=== PATIENT | female | born 1960 | race Caucasian/White ===

== ENCOUNTER 2023-08-02 07:41 | Outpatient (OUT) | payer MEDICARE, SELFPAY ==
--- NOTE | 2023-08-02 07:42 | VEIN_ITS ---
Patient Name: EDEN GRIDER MR#: [id number] : 1960 Exam Date: 08/02/2023 Ordering Doctor: DR SIOBHAN RING D.P.M. RADIOLOGY REPORT PROCEDURE: [facility] - OFFICE VISIT INITIAL COMPARISON: None. PROGRESS NOTES: 62-year-old female who presents with a 15 year history of lower extremity pain swelling and varicose veins. The patient describes the pain as burning moderate in severity rated a 5 on a scale of 1-10. The patient's symptoms culminated in a nonhealing ulceration on the posterior mid right calf. The patient was seen by [facility] wound clinic, Dr. Cid from where she was referred. The patient has not had an episode of cellulitis. The patient's symptoms are exacerbated by prolonged sitting and standing and are only minimally relieved by rest, leg elevation and over the counter oral analgesics. 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 The patient does a minimal amount of exercise due to her pain, hip fracture and bilateral knee replacements. The patient denies any signs and symptoms to suggest arterial ischemia. The patient describes a family history significant for varicose veins in her mother and maternal grandmother. Breast cancer in her mother. Heart disease in her father. . The patient has 5 grandchildren. The patient has a social history significant for a 40 pack year history of smoking discontinuing 3 months ago. The patient was initially to continue her smoking cessation. Occasional social alcohol use. No illicit drug or prescription drug miss use. Past medical history is significant for right hip fracture with surgery. Left shoulder arthroscopic surgery of bilateral knee arthroplasty. The patient is currently on Lasix for lower extremity edema. An inhaler and ibuprofen. Patient has previously had intravenous laser ablation of the right great saphenous vein by Dr. Zavala in [place]. No history of deep venous thrombus or pulmonary embolus. See separate history and physical for medication list. The patient has worn compression stockings for many years. Nursing notes were reviewed. After history and physical exam I discussed at length the pathophysiology of venous hypertension and possible treatments, therapies and strategies available. We discussed at length the importance of elevating the lower extremities above the level of the heart, increased physical activity and compression stocking use. I discussed with the patient that her symptoms were likely multifactorial related to age, genetics, inactivity, possibly lymphatic dysfunction, soft tissue damage from long-term smoking with a component related to venous insufficiency. While we expect some improvement in her condition we do not expect resolution. Risks benefits and alternatives were discussed. The patient's questions were answered. Ultrasound venous reflux study performed the same day was discussed at length with the patient. The report demonstrates occlusion of the very proximal right great saphenous vein from prior intravenous laser ablation. Moderate bilateral great saphenous vein venous insufficiency. Two incompetent right leg perforating veins corresponding to active ulceration of the right posterior mid calf. Bilateral incompetent varicose veins PHYSICAL EXAM: The right leg demonstrates extensive skin thickening , hemosiderin staining and subcutaneous edema below the knee. Moderate scattered varicose and reticular veins are observed. There is a 5 cm active ulceration along the right mid posterior calf, contained to the dermis and not extending into the fat layer. The left leg demonstrates extensive skin thickening, hemosiderin staining is subcutaneous edema, less than on the right. Moderate scattered varicose reticular veins. No active ulceration. Both thighs, legs and feet were symmetrically warm to the touch. Posterior tibial and dorsalis pedis pulses could not be palpated. VEIN/[facility] Facility NEW [facility] IMPRESSION: 1. Bilateral great saphenous vein venous insufficiency . To incompetent right leg perforating veins subjacent to an active venous stasis ulcer 2. Moderate bilateral lower extremity varicose veins 3. Extensive lower extremity subcutaneous edema and skin thickening 4. Indeterminate flow significant arterial disease 5. CEAP: C6, Ep, Asp, Pr PLAN: 1. Endovenous laser ablation right great saphenous vein followed by left great saphenous vein followed right perforating veins subjacent to an active venous stasis ulceration 2. Micro foam chemical ablation bilateral incompetent varicose veins 3. Long-term use of bilateral knee or thigh-high 20-30 mm compression stockings 4. Elevated legs and increased physical activity for symptomatic relief Nurse notes, history and physical were reviewed and confirmed, see attached forms. The nurse was present throughout the physical exam and consultation Dictated by: Edi Reyes MD on 08/02/2023 at 10:41 Approved by: Edi Reyes MD on 08/02/2023 at 10:49
--- NOTE | 2023-08-02 07:42 | VEIN_ITS ---
Patient Name: EDEN GRIDER MR#: [id number] : 1960 Exam Date: 08/02/2023 Ordering Doctor: DR SIOBHAN RING D.P.M. RADIOLOGY REPORT PROCEDURE: VC EXT VENOUS REFLUX SUZIE LMTD COMPARISON: None. INDICATIONS: I83.813 Bilateral painful varicose veins TECHNIQUE: Duplex imaging of the lower extremity to assess the deep and superficial venous system for the presence of deep or superficial venous incompetence and to document the location and severity of disease. The study includes evaluation of the great saphenous vein (GSV), anterior accessory saphenous vein (AASV) and small saphenous vein (SSV). Patient scanned in reverse Trendelenburg and standing. FINDINGS: RIGHT LOWER EXTREMITY: Saphenofemoral Junction Reflux: Yes mm sec GSV: Diam (mm) Reflux/ Time (sec) Proximal Thigh Mid Thigh 5.5 Yes 0.6 Distal Thigh 7.5 Yes 1.9 Prox Calf 5.5 Yes 0.5 Mid Calf 4.6 Yes 0.8 Saphenopopliteal Junction Reflux: 4.9mm Yes 1.0 SSV: Proximal Calf 4.0 Yes 0.3 Mid Calf 2.7 No AASV: Not present Thrombi: No acute or chronic thrombus visualized Compressibility: Normal Flow: Normal Shirt Presser: Dist/med calf 4.6mm with 0.7s reflux. Dist/med calf area of wound 4.5mm with 0.7s reflux. Tech Note: Incompetent GSV. Proximal portion of GSV was previously ablated. Patent varicose vein prox/med calf 4.6mm with 1.1s reflux. Patent varicose vein medial knee 3.0mm with 0.5s reflux. Patent varicose vein mid/med thigh 6.0mm with 1.0s reflux. LEFT LOWER EXTREMITY: Saphenofemoral Junction Reflux: Yes 7.1 mm 2.4 sec GSV: Diam (mm) Reflux/Time (sec) Proximal Thigh 8.2 Yes 1.8 Mid Thigh 5.1 Yes 1.0 Distal Thigh 5.0 Yes 1.0 Prox Calf 2.6 No Mid Calf 3.3 No Saphenopopliteal Junction Relux: 3.6 mm No SSV: Proximal Calf 3.3 No Mid Calf 2.6 Yes 0.8 AASV: Proximal Thigh 3.3 No Mid Thigh 3.4 Yes 0.4 Distal Thigh Thrombi: No acute or chronic thrombus visualized Compressibility: Normal Flow: Normal Shirt Presser: Mid/med calf 3.1mm with 0.8s reflux. Tech Note: Incompetent GSV. Patent varicose vein mid/med calf 3.3mm with 0.9s reflux. Patent varicose vein mid/med thigh 2.4mm with 0.8s reflux. Patent varicose vein dist/med calf 3.6mm with 1.0s reflux. CONCLUSION: 1. Moderate bilateral great saphenous vein venous insufficiency. Left leg saphenous junction reflux. Nonvisualized proximal right great saphenous vein from prior ablation 2. Two large incompetent right leg perforating veins 3. Bilateral incompetent varicose veins, right greater than left Dictated by: Edi Reyes MD on 08/02/2023 at 08:56 Approved by: Edi Reyes MD on 08/02/2023 at 08:59
== END 2023-08-02 07:42 | disposition home or self-care (01) ==
LOC: VC 07:41
PROVIDERS: PCP Podiatrist Foot & Ankle Surgery; Visit Provider Podiatrist Foot & Ankle Surgery
DX: I83.813 Varicose veins of bilateral lower extremities with pain (principal)
CPT/HCPCS: 93970; G0463

== ENCOUNTER 2023-09-21 07:49 | Outpatient (OUT) | payer MEDICARE, SELFPAY ==
--- NOTE | 2023-09-21 07:50 | VEIN_ITS ---
[address] [address] Patient Name: EDEN GRIDER MRN: [id number] date: 1960 Sex: F Assigned Patient Location: Current Patient Location: Accession/Order Number: [id number] Exam Date: 09/21/2023 07:50 Report Date: 09/21/2023 10:03 At the request of: GAUTAM GRESHAM Procedure: VC Endovenous Ablation 1VeinRT EXAMINATION: VC Endovenous Ablation 1Vein right great saphenous vein HISTORY: Pain due to varicose veins of bilateral legs I83.813 COMPARISON: No relevant comparison available. TECHNIQUE: The risks and benefits of the procedure had been previously discussed, and were rediscussed at length. Informed written consent was obtained. Ying Umana and Tata Farah assisted. Time out procedure was performed. The right lower extremity was prepared and draped in the usual sterile fashion to allow knee flexion in the sterile field. Duplex ultrasound probe was draped in a sterile cover, sterile transmission gel was used. Venous mapping was performed with the areas of dilation and large tributaries marked. The total length was 45 cm from the entry 5 cm above the medial malleolus to where the proximal great saphenous vein is occluded in the upper thigh but proximal to the large branch varicosities. The diameter of the greater saphenous vein ranged from 5-8 mm. A 30 gauge needle and 1% buffered lidocaine was used to anesthetize the entry site. A 4 mm incision was made with a scalpel and the saphenous vein was entered percutaneously under direct ultrasound guidance with a micropuncture set, a single stick was successful in gaining access. A micro-guide wire was inserted and the needle removed. A micro-set including a dilator was inserted over the microwire and the needle and dilator were removed. A 0.018 guide wire was inserted through the micro-set and threaded through the saphenous vein. The dilator was removed and an introducer sheath was inserted over the wire. The dilator and wire were removed and the 600 micron fiber was introduced and placed and positioned so that it extended beyond the sheath. Final position of the fiber was determined by ultrasound guidance and duplex imaging. Tumescent anesthetic was delivered by ultrasound guidance. 250 cc of fluid was delivered along the entire course of the saphenous vein. The solution consisted of 1000 cc of normal saline with 40 mL of 1% lidocaine and 20 mL of sodium bicarbonate. A final positioning check was made. The energy source was turned on by means of the foot pedal and the fiber and sheath were withdrawn. The total number of Joules delivered was 2184. The laser was active for 273 seconds under continuous pulse, average laser use of 8 J. Laser start time 8:22 AM 09/21/2023 . Laser stop time 8:28 AM 09/21/2023 . A duplex ultrasound revealed compressibility and flow at the saphenofemoral junction immediately after the procedure. Hemostasis at the access site was achieved. The skin incision of the saphenous vein was closed with a 4 x 4. A compression stocking was applied. Postop instructions were given. A follow up appointment was recommended and scheduled. The patient tolerated the procedure well and was discharged in good condition . VEIN/VC Endovenous Ablation 1VeinRT IMPRESSION: Technically successful endovenous laser ablation of the right great saphenous vein Electronically authenticated by: GAUTAM GRESHAM Date: 09/21/2023 10:03
--- OUTSIDE RECORDS SUMMARY | 2023-09-21 07:52 | XMS_ITS | CCD ---
Author Name Unknown Address [address] [place] [address] Organization [facility] Care Team Providers Care Charging Operator Name Role Phone Yaniv MARRUFO Primary Care Physician Lashaun Danae Unavailable Unavailable MAGGY, MIKALA A Primary Care Physician [phone] MAGGY, MIKALA A Attending Unavailable MAGGY, MIKALA A Attending Unavailable MAGGY, MIKALA A Attending Unavailable MAGGY, MIKALA A Attending Unavailable MAGGY, MIKALA A Attending Unavailable Coal, Bashar X Admitting Unavailable Coal, Bashar X Referring Unavailable Coal, Bashar X Attending Unavailable Coal, Bashar X Admitting Unavailable Coal, Bashar X Referring Unavailable Coal, Bashar X Attending Unavailable MAGGY, MIKALA A Attending Unavailable MAGGY, MIKALA A Admitting Unavailable Steve Dickinson Attending Unavailable Charan Rivera Referring Unavailable Coal, Bashar X Referring Unavailable Alfaro, Basem G. Attending Unavailable Coal, Bashar X Attending Unavailable MAGGY, MIKALA A Referring Unavailable NONE, XXXX Referring Unavailable Coal, Bashar X Attending Unavailable Charan Rivera Attending Unavailable Spasic, Gonsalo V. Attending Unavailabl e Allergies Allergy Classification Reported Allergen(s) Allergy Type Date of Onset Reaction(s) Facility (12 sources) [place]; Translations: [Strawberries] Propensity to adverse reactions to substance Blotchy [facility] (1 source) No Known Medication Allergies; Translations: [No Known Medication Allergies] Propensity to adverse reactions (disorder) [facility] Repository NEGATED: Highlighted row has been ruled out! (1 source) Drug allergy [facility] NEGATED: Highlighted row has been ruled out! (1 source) Drug allergy [facility] NEGATED: Highlighted row has been ruled out! (1 source) Drug allergy [facility] NEGATED: Highlighted row has been ruled out! (1 source) Drug allergy [facility] Medications Current Medications Medication Drug Class(es) Dates Sig (Normalized) Sig (Original) Albuterol (Eqv-ProAir HFA) 90 mcg/inh inhalation aerosol (4 sources) Start: 06-21-2023 take 2 puff(s) by inhalation every six hours Albuterol (Eqv-ProAir HFA) 90 mcg/inh inhalation aerosol 2 puff(s), Inhalation, q6hr, 18 gm, Refill(s) 1, [facility], 167, cm, 06/21/23 11:26:00 EDT, Height/Length Dosing, 136, kg, 06/21/23 11:26:00 EDT, Weight Dosing Start Date: 06/21/23 Status: Ordered azithromycin 250 mg oral tablet (1 source) Macrolide Antimicrobial Start: 07-11-2022 End: 07-21-2022 azithromycin 250 mg Tab = 1 packet(s), Oral, As Directed, as directed on package labeling, X 5 day(s), # 6 tab(s), Refills(s) 1, Pharmacy: [facility], 167, cm, 07/11/22 8:07:00 EST, Height/Length Dosing, 126.3, kg, 07/11/22 8:07:00 EST, Weight Dosing Start Date: 07/11/22 Stop Date: 07/21/22 Status: Ordered azithromycin 250 mg Tab 5-day Dose Pack (Z-Austyn) (4 sources) Start: 06-21-2023 azithromycin 250 mg Tab 5-day Dose Pack (Z-Austyn) See Instructions, 1 tab(s) Oral, # 6 tab(s), Refills(s) 0, Pharmacy: [facility], 167, cm, 06/21/23 11:26:00 EDT, Height/Length Dosing, 136, kg, 06/21/23 11:26:00 EDT, Weight Dosing Start Date: 06/21/23 Status: Ordered Start: 05-04-2023 End: 05-09-2023 azithromycin 250 mg Tab 5-da y Dose Pack (Z-Austyn) = 1 packet(s), Oral, As Directed, as directed on package labeling, X 5 day(s), # 6 tab(s), Refills(s) 0, Pharmacy: [facility], 167, cm, 05/04/23 12:04:00 EDT, Height/Length Dosing, 133.5, kg, 05/04/23 12:04:00 EDT, Weight Dosing Start Date: 05/04/23 Stop Date: 05/09/23 Status: Ordered Breztri Aerosphere inhalatio n aerosol (4 sources) Start: 07-16-2023 Breztri Aerosp here inhalation aerosol Refill(s) 0 Start Date: 07/16/23 Status: Ordered Start: 06-27-2023 End: 06-21-2024 take 1 dose by inhalation twice daily Breztri Aerosphere inhalation aerosol 2 puff(s), Inhalation, BID for 30 day(s), 1 EA, Refill(s) 11, [facility], 167, cm, 06/27/23 9:44:00 EDT, Height/Length Dosing, 135, kg, 06/27/23 9:44:00 EDT, Weight Dosing Start Date: 06/27/23 Stop Date: 06/21/24 Status: Ordered cephalexin 500 mg oral capsule (1 source) Cephalosporin Antibacterial Start: 07-16-2023 End: 07-23-2023 take 1 capsule by mouth every eight hours Keflex 500 mg Cap 500 mg = 1 cap(s), Oral, q8hr, X 7 day(s), # 21 cap(s), Refills(s) 0, Pharmacy: [facility], 168, cm, 07/16/23 12:38:00 EST, Height/Length Dosing, 133.7, kg, 07/16/23 12:38:00 EST, Weight Dosing Start Date: 07/16/23 Stop Date: 07/23/23 Status: Ordered doxycycline hyclate 100 mg oral capsule (1 source) Tetracycline-class Drug Start: 08-16-2023 take 1 capsule by mouth twice daily doxycycline hyclate 100 mg Cap 100 mg = 1 cap(s), Oral, BID, # 20 cap(s), Refills(s) 0, Pharmacy: [facility], 168, cm, 08/16/23 8:09:00 EST, Height/Length Dosing, 130.5, kg, 08/16/23 8:09:00 EST, Weight Dosing Start Date: 08/16/23 Status: Ordered furosemide 40 mg oral tablet (3 sources) Loop Diuretic Start: 06-27-2023 End: 2024 take 1 tablet by mouth every other day Lasix 40 mg Tab 40 mg = 1 tab(s), Oral, Every other day, X 90 day(s), # 45 tab(s), Refills(s) 4, Pharmacy: [facility], 167, cm, 06/27/23 9:44:00 EDT, Height/Length Dosing, 135, kg, 06/27/23 9:44:00 EDT, Weight Dosing Start Date: 06/27/23 Stop Date: 09/19/24 Status: Ordered Roflumilast (4 sources) Phosphodiesterase 4 Inhibitor Start: 07-16-2023 Roflumilast 250 mcg oral tablet Refills(s) 0 Start Date: 07/16/23 Status: Ordered Start: 06-27-2023 End: 05-28-2024 take 1 tablet by mouth once daily Daliresp 250 mcg oral tablet 250 mcg = 1 tab(s), Oral, Daily, X 28 day(s), # 28 tab(s), Refills(s) 11, Pharmacy: [facility], 167, cm, 06/27/23 9:44:00 EDT, Height/Length Dosing, 135, kg, 06/27/23 9:44:00 EDT, Weight Dosing Start Date: 06/27/23 Stop Date: 05/28/24 Status: Ordered Symbicort 160/4.5 inhalation aerosol with adapter (8 sources) Start: 03-30-2023 take 2 puff(s) by inhalation twice daily Symbicort 160/4.5 inhalation aerosol with adapter 2 puff(s), Inhalation, BID, 3 EA, Refill(s) 4, [facility], 167, cm, 07/11/22 8:07:00 EST, Height/Length Dosing, 126.3, kg, 07/11/22 8:07:00 EST, Weight Dosing Start Date: 03/30/23 Status: Ordered Start: 07-11-2021 take 2 puff(s) by in halation twice daily Symbicort 160/4.5 inhalation aerosol with adapter 2 puff(s), Inhalation, BID, 3 EA, Refill(s) 3, [facility], 167, cm, 07/11/21 8:22:00 EST, Height/Length Dosing, 127.1, kg, 07/11/21 8:22:00 EST, Weight Dosing Start Date: 07/11/21 Status: Ordered Completed/Discontinued Medications Medication Drug Class(es) Dates Sig (Normalized) Sig (Original) albuterol 0.83 mg/ml inhalation solution (11 sources) beta2-Adrenergic Agonist Start: 06-21-2023 take 50 doses by inhalation every four hours as needed albuterol 0.083% Inh Sandi 3 mL 0.083% - 3mL dosing units, Inhalation, q4hr as needed for wheezing, 50 EA, Refill(s) 1, [facility], 167, cm, 06/21/23 11:26:00 EDT, Height/Length Dosing, 136, kg, 06/21/23 11:26:00 EDT, Weight Dosing Start Date: 06/21/23 Status: Ordered Start: 07-11-2021 take 50 doses by inh alation every four hours as needed albuterol 0.083% Inh Sandi 3 mL 0.083% - 3mL dosing units, Inhalation, q4hr as needed for wheezing, 50 EA, Refill(s) 1, [facility], 167, cm, 07/11/21 8:22:00 EST, Height/Length Dosing, 127.1, kg, 07/11/21 8:22:00 EST, Weight Dosing Start Date: 07/11/21 Status: Ordered predniSONE 10 mg oral tablet (4 sources) Start: 06-27-2023 predniSONE 10 mg Tab 10 mg = 1 tab(s), Oral, As Directed, Take 4 tabs for 3 days, 3 tabs for 3 days, 2 tabs for 3 days, 1 tab for 3 days., # 30 tab(s), Refills(s) 0, Pharmacy: [facility], 167, cm, 06/27/23 9:44:00 EDT, Height/Length Dosing, 135, kg, 06/27/23 9:44:00 EDT, Weight Dosing Start Date: 06/27/23 Status: Ordered Start: 05-04-2023 End: 05-09-2023 take 1 tablet by mouth once daily predniSONE 50 mg Tab 50 mg = 1 tab(s), Oral, Daily, X 5 day(s), # 5 tab(s), Refills(s) 0, Pharmacy: [facility], 167, cm, 05/04/23 12:04:00 EDT, Height/Length Dosing, 133.5, kg, 05/04/23 12:04:00 EDT, Weight Dosing Start Date: 05/04/23 Stop Date: 05/09/23 Status: Ordered Start: 07-11-2022 predniSONE 10 mg Tab 0 = 1 -, Oral, As Directed, Take 5 tabs by mouth daily x3 days, 4 daily x3 days, 3 daily x3 days, 2 daily x3 days, then 1 tab daily x3 days., # 45 tab(s), Refills(s) 2, Pharmacy: [facility], 167, cm, 07/11/22 8:07:00 EST, Height/Length... Start Date: 07/11/22 Status: Ordered Problems Problem Classification Problem Date Documented Date Episodic/Chronic Acute bronchitis (11 sources) Acute bronchitis; Translations: [Acute bronchitis, unspecified] Onset: 05-04-2023 Episodic Asthma (12 sources) Intrinsic asthma; Translations: [Asthma] Onset: 05-04-2023 06-20-2019 Chronic Chronic obstructive pulmonary disease and bronchiectasis (20 sources) Chronic bronchitis; Translations: [Unspecified chronic bronchitis] Onset: 07-11-2022 Chronic Diabetes mellitus without complication (12 sources) Impaired fasting glycemia; Translations: [Impaired fasting glucose] Onset: 07-11-2022 Episodic Disorders of lipid metabolism (12 sources) Mixed hyperlipidemia; Translations: [Mixed hyperlipidemia] Onset: 07-11-2022 Chronic Immunizations and screening for infectious disease (1 source) Vaccination given; Translations: [Encounter for immunization] Onset: 05-09-2023 Episodic Osteoarthritis (11 sources) Osteoarthritis of hip 06-26-2019 Chronic Other non-traumatic joint disorders (11 sources) Shoulder pain 06-20-2019 Episodic Other nutritional; endocrine; and metabolic disorders (17 sources) Body mass index 40+ - severely obese; Translations: [Body mass index (BMI) 40.0-44.9, adult] Onset: 07-11-2022 Chronic Other nutritional; endocrine; and metabolic disorders (6 sources) Morbid obesity; Translations: [Morbid (severe) obesity due to excess calories] Onset: 06-21-2023 Chronic Residual codes; unclassified (1 source) Obstructive sleep apnea syndrome; Translations: [Obstructive sleep apnea (adult) (pediatric)] Onset: 05-18-2023 Chronic Residual codes; unclassified (11 sources) Menopause present 05-07-2017 Episodic Residual codes; unclassified (1 source) Edema; Translations: [Edema, unspecified] Onset: 06-27-2023 Episodic Residual codes; unclassified (1 source) Patient encounter status; Translations: [Other specified health status] Onset: 08-16-2023 Episodic Skin and subcutaneous tissue infections (1 source) Cellulitis of lower limb; Translations: [Cellulitis of right lower limb] Onset: 07-16-2023 Episodic Superficial injury; contusion (1 source) Foreign body of skin of finger; Translations: [Superficial foreign body of unspecified finger, initial encounter] Onset: 08-16-2023 Episodic Results Test Name Value Interpretation Reference Range [facility] Medicine Office/Clini c Noteon 08-16-2023 Family Medicine Office/Clinic Note Chief Complaint copd HPI Staff Pt here for 3 month f/u COPD: Do you have any changes in sputum quantity or color? no Do you have SOB or JARRELL? no Do you have an increased cough? no Are you compliant with your medications yes Difficulty affording your medications? no Do you use O2? no PFT: 06/06/23 Next Pulmonology visit: 09/10/23 Cellulitis: LV 07/16/23, prescribed Keflex x7days. Completed: yes Improvement: no, pt did go to wound clinic then vein specialist has improved now Concerns: pt would like to discuss splinters in Lt hand, noted 3 weeks ago. Per pt hurts so bad she has to take Tylenol every 4 hours. Pap: DUE Trevor: DUE [place]: DUE Flu: UTD I have reviewed and verified the staff HPI to be accurate for this encounter. History of Present Illness Patient presents today in f/u for known COPD. She reports she is feeling better and continues to take her medications as ordered. Her pulse ox is 92% today in the office. She denies shortness of breath. She has a concern today of dog splinters under her finger nails. She reports her daughter is a missile tracking technician and told her she should this checked as she has some pain in her 3rd and 4th finger tips. She reports she has not been able to see anything under the nails. Review of Systems PHQ Score Initial Depression Screen Score: 0 SCORE Constitutional: no fever, no chills, no sweats, no weakness Respiratory: no shortness of breath, no cough, no orthopnea, no wheezing Cardiovascular: no chest pain, no palpitations, no edema Additional ROS info: Except as noted in the above Review of Systems and in the History of Present Illness all other systems have been reviewed and are negative or noncontributory. Physical Exam Vitals & Measurements HR: 97(Peripheral) BP: 138/84 SpO2: 92% HT: 66 in HT: 168 cm WT: 130.5 kg WT: 287.1 lb BMI: 46.24 General: alert, no acute distress Skin: warm, dry Head: no trauma, normocephalic Neck: Trachea midline, no adenopathy, no tenderness Eye: normal conjunctiva, sclera clear Cardiovascular: regular rate and rhythm, normal peripheral perfusion Respiratory: Lungs CTA, respirations non labored Back: No tenderness, Normal ROM, Normal alignment. Extremities: no deformity, no trauma; tenderness to the 3rd & 4th digit fingertips. Neurological: oriented x 4, LOC appropriate for age speech normal Psychiatric: cooperative, affect appropriate for age, normal judgement, normal psychiatric thoughts. Assessment/Plan 1. COPD type B (J44.9: Chronic obstructive pulmonary disease, unspecified) Stable Controlled with medication(s) Continue albuterol, Breztri, & Daliresp as ordered Pulse ox 92% today in the office Encouraged to complete appointment with pulmonology on 09/10/2023 f/u in 3 months 2. Splinter of finger (S60.459A: Superficial foreign body of unspecified finger, initial encounter) Encouraged to soak in Epsom salts TID prn Ordered: doxycycline, 100 mg = 1 cap(s), Oral, BID, # 20 cap(s), Refills(s) 0, Pharmacy: [facility], 168, cm, 08/16/23 8:09:00 EST, Height/Length Dosing, 130.5, kg, 08/16/23 8:09:00 EST, Weight Dosing 3. BMI 45.0-49.9, adult (Z68.42: Body mass index [BMI] 45.0-49.9, adult) Monitor weight at each visit Encourage daily exercise as tolerated Encouraged portion control with meals 4. Non-smoker (Z78.9: Other specified health status) Stable Follow-up No qualifying data available Patient Education Chronic Obstructive Pulmonary Disease, [id number] Problem List/Past Medical History Ongoing BMI 45.0-49.9, adult Chronic bronchitis COPD type B Impaired fasting glucose Intrinsic asthma Mixed hyperlipidemia Morbid obesity Historical Chronic bronchitis Procedure/Surgical History Hip arthrogram (05/19/2019), Arthroplasty of shoulder (05/21/2017), left total knee arthroplasty (07/21/2014), right total knee arthroplasty (09/23/2013), Arthroplasty of the hip, Bilateral tubal ligation, section, Excision of cyst, Hemorrhoidectomy, Ligation and stripping of varicose vein of lower limb, Meniscus tear.. Medications Albuterol (Eqv-ProAir HFA) 90 mcg/inh inhalation aerosol, 2 puff(s), Inhalation, q6hr, 1 refills albuterol 0.083% Inh Sandi 3 mL, 0.083% - 3mL dosing units, Inhalation, q4hr, PRN, 1 refills Breztri Aerosphere inhalation aerosol, 2 puff(s), Inhalation, BID, 11 refills Daliresp 250 mcg oral tablet, 250 mcg= 1 tab(s), Oral, Daily, 11 refills doxycycline hyclate 100 mg Cap, 100 mg= 1 cap(s), Oral, BID Lasix 40 mg Tab, 40 mg= 1 tab(s), Oral, Every other day, 4 refills Allergies No Known Medication Allergies Strawberries (Blotchy) Social History Alcohol - Denies Alcohol Use, 09/03/2013 Substance Abuse - Denies Substance Abuse, 09/03/2013 Tobacco - High Risk, 09/03/2013 Former smoker, quit more than 30 days ago Tobacco Use:. Never Smokeless Tobacco Use:. Cigarettes, Ready to change: No. Household tobacco concerns: No., 08/16/2023 Fa (more content not included)... Normal [facility] Comment on above: Result Comment: Shiva tronically Signed By: MIKALA WINTER CNP\.melinda\Date and Time Signed: 08/16/23 12:40 EST Patient Educationon 08-16-20 Patient Education Pulmonary Medicine Chronic Obstructive Pulmonary Disease Chronic obstructive pulmonary disease (COPD) is a long-term (chronic) lung problem. When you have COPD, it is hard for air to get in and out of your lungs. Usually the condition gets worse over time, and your lungs will never return to normal. There are things you can do to keep yourself as healthy as possible. What are the causes? ? Smoking. This is the most common cause. ? Certain genes passed from parent to child (inherited). What increases the risk? ? Being exposed to secondhand smoke from cigarettes, pipes, or cigars. ? Being exposed to chemicals and other irritants, such as fumes and dust in the work environment. ? Having chronic lung conditions or infections. What are the signs or symptoms? ? Shortness of breath, especially during physical activity. ? A long-term cough with a large amount of thick mucus. Sometimes, the cough may not have any mucus (dry cough). ? Wheezing. ? Breathing quickly. ? Skin that looks lópez or blue, especially in the fingers, toes, or lips. ? Feeling tired (fatigue). ? Weight loss. ? Chest tightness. ? Having infections often. ? Episodes when breathing symptoms become much worse (exacerbations). At the later stages of this disease, you may have swelling in the ankles, feet, or legs. How is this treated? ? Taking medicines. ? Quitting smoking, if you smoke. ? Rehabilitation. This includes steps to make your body work better. It may involve a team of specialists. ? Doing exercises. ? Making changes to your diet. ? Using oxygen. ? Lung surgery. ? Lung transplant. ? Comfort measures (palliative care). Follow these instructions at home: Medicines ? Take puzz-srt-xuzbzdz and prescription medicines only as told by your doctor. ? Talk to your doctor before taking any cough or allergy medicines. You may need to avoid medicines that cause your lungs to be dry. Lifestyle ? If you smoke, stop smoking. Smoking makes the problem worse. ? Do not smoke or use any products that contain nicotine or tobacco. If you need help quitting, ask your doctor. ? Avoid being around things that make your breathing worse. This may include smoke, chemicals, and fumes. ? Stay active, but remember to rest as well. ? Learn and use tips on how to manage stress and control your breathing. ? Make sure you get enough sleep. Most adults need at least 7 hours of sleep every night. ? Eat healthy foods. Eat smaller meals more often. Rest before meals. Controlled breathing Learn and use tips on how to control your breathing as told by your doctor. Try: ? Breathing in (inhaling) through your nose for 1 second. Then, pucker your lips and breath out (exhale) through your lips for 2 seconds. ? Putting one hand on your belly (abdomen). Breathe in slowly through your nose for 1 second. Your hand on your belly should move out. Pucker your lips and breathe out slowly through your lips. Your hand on your belly should move in as you breathe out. Controlled coughing Learn and use controlled coughing to clear mucus from your lungs. Follow these steps: 1. Lean your head a little forward. 2. Breathe in deeply. 3. Try to hold your breath for 3 seconds. 4. Keep your mouth slightly open while coughing 2 times. 5. Spit any mucus out into a tissue. 6. Rest and do the steps again 1 or 2 times as needed. General instructions ? Make sure you get all the shots (vaccines) that your doctor recommends. Ask your doctor about a flu shot and a pneumonia shot. ? Use oxygen therapy and pulmonary rehabilitation if told by your doctor. If you need home oxygen therapy, ask your doctor if you should buy a tool to measure your oxygen level (oximeter). ? Make a COPD action plan with your doctor. This helps you to know what to do if you feel worse than usual. ? Manage any other conditions you have as told by your doctor. ? Avoid going outside when it is very hot, cold, or humid. ? Avoid people who have a sickness you can catch (contagious). ? Keep all follow-up visits. Contact a doctor if: ? You cough up more mucus than usual. ? There is a change in the color or thickness of the mucus. ? It is harder to breathe than usual. ? Your breathing is faster than usual. ? You have trouble sleeping. ? You need to use your medicines more often than usual. ? You have trouble doing your normal activities such as getting dressed or walking around the house. Get help right away if: ? You have shortness of breath while resting. ? You have shortness of breath that stops you from: ? Being able to talk. ? Doing normal activities. ? Your chest hurts for longer than 5 minutes. ? Your skin color is more blue than usual. ? Your pulse oximeter shows that you have low oxygen for longer than 5 minutes. ? You have a fever. ? You feel too tired to breathe normally. These symptoms may repres (more content not included)... [facility] Consent for Procedure/Surger yon 07-24-2023 Consent for Procedure/Surgery [id number] 0#1.00TIFF [facility] Consent for Treatmenton 06-28 Consent for Treatment [id number] #1.00TIFF [facility] Consent to Photographon 06-28 Consent to Photograph [id number] 5#1.00TIFF [facility] Correspondence - [place] Correspondence - Wound [id number] 9#1.00TIFF [facility] Correspondence - Wound [id number] 6#1.00TIFF [facility] Multi-Wound Charton 07-24-20 Multi-Wound Chart [id number] 4#1.00TIFF [facility] Nursing Assessment - [place] 07-24-2023 Nursing Assessment - Wound [id number] 0#1.00TIFF [facility] Nursing Assessment - Wound [id number] 2#1.00TIFF [facility] Nursing Note - [place] 07-24 Nursing Note - Wound [id number] 5#1.00TIFF [facility] Physician Orderon 07-24-2023 Physician Order [id number] 8#1.00TIFF [facility] Progress Note - [place]ound[place] 06-28 Progress Note - Wound [id number] 4#1.00TIFF [facility] Physician Referralon 023 Physician Referral [id number] #1.00TIFF [facility] Family Medicine Office/Clini c Noteon 07-16-2023 Family Medicine Office/Clinic Note Chief Complaint EST rash on back of leg HPI Staff 62 year old female presents with burning rash on back of right leg states it [place] and seeps History of Present Illness I have reviewed and verified the staff HPI to be accurate for this encounter. Portions of this record have been created with voice recognition software. Occasional wrong-word or ?bxknh-c-kstm? substitutions may have occurred due to the inherent limitations of voice recognition software. 62 yo female presents today with cc of retention in the back of the right leg. Patient states she noticed rash of the right posterior leg started about 4 to 5 days ago. She denies any burning itching or blistering type rash prior to rash development. She denies any fever or chills but states redness of the right lower extremity with spread to the top of the right foot. She states some pain and discomfort or tenderness of the area around the rash. She states that it is seeping. She was recently started on Lasix to help with some water in the lower extremities. This was also prescribed to her by institutional cook who she is seeing for history of COPD. States a former smoker which she quit on of this year. States she has not had a cigarette since then. Patient denies any calf tenderness denies any history of DVT or PE does not currently take any aspirin or blood thinners. Denies any recent travel or recent sick contacts. Denies any acute history of cellulitis but states the lower extremities are very dry which they do have some cracks. She states she has tried most everything yoal-kao-[id number] which does not seem to help moisturize her skin. She denies any weakness numbness or tingling of the extremity she denies any history of diabetes. Was recently treated with steroid she states for a bronchitis. States she is feeling better in regards to that. She has no other concerns at this time. Review of Systems PHQ Score Initial Depression Screen Score: 0 SCORE ROS negative unless otherwise stated in HPI. Physical Exam Vitals & Measurements T: 36.6 ?C(Oral) HR: 86(Peripheral) BP: 136/86 SpO2: 95% HT: 66 in HT: 168 cm WT: 133.7 kg WT: 294.14 lb BMI: 47.37 General: Pleasant obese female, no acute distress Eyes: not assessed Ears: not assessed Nose: not addressed Mouth: not assessed Neck: not assessed Lungs: Lung sounds are clear bilaterally. No wheezing rhonchi or crackles on exam. Cardio: S1, S2, regular rhythm. No murmurs gallops or rubs. Abdomen: not assessed Extremity: Patient walked back to convenient care on her own without gait abnormality. Patient has strong posterior tibialis pulses bilaterally and strong pedal pulses bilaterally. Patient has 1+ pitting edema to the right lower extremity including the foot. Patient has an area of what appears to be a wound at the right posterior lower extremity just above the left ankle. Some of that extends to the back of the right heel. This is not weeping moist red and hot to the touch concerning for cellulitis. There is no lacerations or open wounds. No obvious abrasions. No redness of the right lower extremity extends just past the area of open or moist skin to the dorsal aspect of the right foot does not include the plantar surface or toes on the right foot. There is no red streaking. Swelling is all below the right knee. Patient denies any calf tenderness negative Homans' sign bilaterally. Area of open or seeping skin is approximately 6 cm in length by 4 cm in width at the right posterior lower leg. Active weeping of serous fluid. No focal deficits. Patient is neurovascularly intact. Neurologic: not assessed Skin: See extremity note regarding description of cellulitis to the right lower extremity. Mental Status: Alert and oriented x3. Normal mood and affect Assessment/Plan Discussed with patient that I have concern for cellulitis. Discussed with patient that without trying fracture skin is provided opportunity for bacteria to get in. We will send referral to wound care. The patient is prescribed Keflex 3 times daily x7 days duration which patient agrees and understands plan rest ice and elevate the right leg which will help with swelling and inflammation. Patient is to follow closely with primary care provider in the next 2 to 3 days for reevaluation. Can return if needed. However she understands to seek ER for reevaluation if she does not increase in redness streaking chills worsening pain or spike fever or develop chills weakness or for any other worsening or concerning symptoms which patient agrees and understands plan. 1. Cellulitis of right lower leg (L03.115: Cellulitis of right lower limb) History and exam consistent with cellulitis. Will treat with keflex 500 mg tid x 7 da7s. Cleanse area with mild soap and water twice daily. Keep area clean and dry. F/u with PCP in 5-7 days to ensure improvement of symptoms, sooner if no improvement of symptoms. Seek medical attention immediately for fevers, increased redness and swelling, difficulty ambulati (more content not included)... [facility] Comment on above: Result Comment: Elec tronically Signed By: Miguel TAVARES, Charan Carvajal\.br\Date and Time Signed: 07/16/23 15:41 EST Patient Educationon 07-16-20 23 Patient Education Infectious Disease Cellulitis, Adult Cellulitis is a skin infection. The infected area is often warm, red, swollen, and sore. It occurs most often in the arms and lower legs. It is very important to get treated for this condition. What are the causes? This condition is caused by bacteria. The bacteria enter through a break in the skin, such as a cut, burn, insect bite, open sore, or crack. What increases the risk? This condition is more likely to occur in people who: ? Have a weak body defense system (immune system). ? Have open cuts, townsend, bites, or scrapes on the skin. ? Are older than 60 years of age. ? Have a blood sugar problem (diabetes). ? Have a long-lasting (chronic) liver disease (cirrhosis) or kidney disease. ? Are very overweight (obese). ? Have a skin problem, such as: ? Itchy rash (eczema). ? Slow movement of blood in the veins (venous stasis). ? Fluid buildup below the skin (edema). ? Have been treated with high-energy rays (radiation). ? Use IV drugs. What are the signs or symptoms? Symptoms of this condition include: ? Skin that is: ? Red. ? Streaking. ? Spotting. ? Swollen. ? Sore or painful when you touch it. ? Warm. ? A fever. ? Chills. ? Blisters. How is this diagnosed? This condition is diagnosed based on: ? Medical history. ? Physical exam. ? Blood tests. ? Imaging tests. How is this treated? Treatment for this condition may include: ? Medicines to treat infections or allergies. ? Home care, such as: ? Rest. ? Placing cold or warm cloths (compresses) on the skin. ? Hospital care, if the condition is very bad. Follow these instructions at home: Medicines ? Take yeni-yrk-hzczezm and prescription medicines only as told by your doctor. ? If you were prescribed an antibiotic medicine, take it as told by your doctor. Do not stop taking it even if you start to feel better. General instructions ? Drink enough fluid to keep your pee (urine) pale yellow. ? Do not touch or rub the infected area. ? Raise (elevate) the infected area above the level of your heart while you are sitting or lying down. ? Place cold or warm cloths on the area as told by your doctor. ? Keep all follow-up visits as told by your doctor. This is important. Contact a doctor if: ? You have a fever. ? You do not start to get better after 1?2 days of treatment. ? Your bone or joint under the infected area starts to hurt after the skin has healed. ? Your infection comes back. This can happen in the same area or another area. ? You have a swollen bump in the area. ? You have new symptoms. ? You feel ill and have muscle aches and pains. Get help right away if: ? Your symptoms get worse. ? You feel very sleepy. ? You throw up (vomit) or have watery poop (diarrhea) for a long time. ? You see red streaks coming from the area. ? Your red area gets larger. ? Your red area turns dark in color. These symptoms may represent a serious problem that is an emergency. Do not wait to see if the symptoms will go away. Get medical help right away. Call your local emergency services (911 in the [place] Do not drive yourself to the hospital. Summary ? Cellulitis is a skin infection. The area is often warm, red, swollen, and sore. ? This condition is treated with medicines, rest, and cold and warm cloths. ? Take all medicines only as told by your doctor. ? Tell your doctor if symptoms do not start to get better after 1?2 days of treatment. This information is not intended to replace advice given to you by your health care provider. Make sure you discuss any questions you have with your health care provider. Document Revised: 05/25/2022 Document Reviewed: 05/25/2022 [employer] Patient Education ? 2022 [employer]. Nutrition BMI for Adults What is BMI? Body mass index (BMI) is a number that is calculated from a person's weight and height. BMI can help estimate how much of a person's weight is composed of fat. BMI does not measure body fat directly. Rather, it is an alternative to procedures that directly measure body fat, which can be difficult and expensive. BMI can help identify people who may be at higher risk for certain medical problems. What are BMI measurements used for? BMI is used as a screening tool to identify possible weight problems. It helps determine whether a person is obese, overweight, a healthy weight, or underweight. BMI is useful for: ? Identifying a weight problem that may be related to a medical condition or may increase the risk for medical problems. ? Promoting changes, such as changes in diet and exercise, to help reach a healthy weight. BMI screening can be repeated to see if these changes are working. How is BMI calculated? BMI involves measuring your weight in relation to your height. Both height and weight are measured, and the BMI is calculated from those numbers. This can (more content not included)... [facility] Physician Orderon 07-16-2023 Physician Order [id number] 5#1.00TIFF [facility] Consent for Treatmenton Consent for Treatment [id number] #1.00TIFF [facility] Heart and Vascular Office/Cl inic Noteon 06-27-2023 Heart and Vascular Office/Clinic Note Chief Complaint TESTING RESULTS. History of Present Illness Since her last visit she underwent pulmonary function test showed severe obstructive lung disease FEV1 41% with mild component of restrictive lung disease total lung capacity 77%. She has been on Symbicort and albuterol she has again increased chest congestion cough and shortness of breath. She was prescribed antibiotic last week by her primary care physician. She went for sleep study but she was told that she has co-pay of 1300 and could not afford She has increased lower extremity edema Review of Systems PHQ Score Initial Depression Screen Score: 0 12 point system review was done and negative except what mentioned in HPI Physical Exam Vitals & Measurements HR: 104(Peripheral) BP: 150/88 SpO2: 92% HT: 66 in HT: 167 cm WT: 135 kg WT: 297 lb BMI: 48.41 General: no distress Skin: warm? , dry? Head: no? trauma, normocephalic? Neck: Trachea midline? , no? adenopathy, no? tenderness Eye: normal? conjunctiva, sclera clear? ENMT: oral mucosa moist? Cardiovascular: regular? rate and rhythm, normal? Respiratory: Lungs rhonchi? ,respirations non labored? Chest wall: no? deformity. Gastrointestinal: soft? , non distended? , no? tenderness, no? guarding. Extremities: no? deformity, no? trauma Neurological: nonfocal Assessment/Plan 1. COPD mixed type (J44.9: Chronic obstructive pulmonary disease, unspecified) She has severe COPD with component of restrictive lung disease from body habitus. She has frequent exacerbation so we will step up her regimen and stop Symbicort and start Trelegy inhaler. I will also start her on Daliresp 250 mg daily for severe COPD with frequent exacerbation She did not qualify for supplemental oxygen with exertion, she needs nocturnal oximetry testing to evaluate for O2 need at night She was given a prescription for prednisone taper for COPD exacerbation Ordered: budesonide/formotero l/glycopyrrolate, 2 puff(s), Inhalation, BID for 30 day(s), 1 EA, Refill(s) 11, [facility], 167, cm, 06/27/23 9:44:00 EDT, Height/Length Dosing, 135, kg, 06/27/23 9:44:00 EDT, Weight Dosing roflumilast, 250 mcg = 1 tab(s), Oral, Daily, X 28 day(s), # 28 tab(s), Refills(s) 11, Pharmacy: [facility], 167, cm, 06/27/23 9:44:00 EDT, Height/Length Dosing, 135, kg, 06/27/23 9:44:00 EDT, Weight Dosing 2. Morbid obesity (E66.01: Morbid (severe) obesity due to excess calories) 3. Edema (R60.9: Edema, unspecified) I will start her on diuretics every other day Ordered: furosemide, 40 mg = 1 tab(s), Oral, Every other day, X 90 day(s), # 45 tab(s), Refills(s) 4, Pharmacy: [facility], 167, cm, 06/27/23 9:44:00 EDT, Height/Length Dosing, 135, kg, 06/27/23 9:44:00 EDT, Weight Dosing Orders: predniSONE, 10 mg = 1 tab(s), Oral, As Directed, Take 4 tabs for 3 days, 3 tabs for 3 days, 2 tabs for 3 days, 1 tab for 3 days., # 30 tab(s), Refills(s) 0, Pharmacy: [facility], 167, cm, 06/27/23 9:44:00 EDT, Height/Length Dosing, 135, kg, ... Follow-up No qualifying data available 6 weeks Problem List/Past Medical History Ongoing Acute bronchitis BMI 45.0-49.9, adult Chronic bronchitis COPD type B Impaired fasting glucose Intrinsic asthma Mixed hyperlipidemia Morbid obesity Historical Chronic bronchitis Procedure/Surgical History Hip arthrogram (05/19/2019), Arthroplasty of shoulder (05/21/2017), left total knee arthroplasty (07/21/2014), right total knee arthroplasty (09/23/2013), Arthroplasty of the hip, Bilateral tubal ligation, section, Excision of cyst, Hemorrhoidectomy, Ligation and stripping of varicose vein of lower limb, Meniscus tear.. Medications Albuterol (Eqv-ProAir HFA) 90 mcg/inh inhalation aerosol, 2 puff(s), Inhalation, q6hr, 1 refills albuterol 0.083% Inh Sandi 3 mL, 0.083% - 3mL dosing units, Inhalation, q4hr, PRN, 1 refills azithromycin 250 mg Tab 5-day Dose Pack (Z-Austyn), See Instructions Breztri Aerosphere inhalation aerosol, 2 puff(s), Inhalation, BID, 11 refills Daliresp 250 mcg oral tablet, 250 mcg= 1 tab(s), Oral, Daily, 11 refills Lasix 40 mg Tab, 40 mg= 1 tab(s), Oral, Every other day, 4 refills predniSONE 10 mg Tab, 10 mg= 1 tab(s), Oral, As Directed Allergies No Known Medication Allergies Strawberries (Blotchy) Social History Alcohol - Denies Alcohol Use, 09/03/2013 Substance Abuse - Denies Substance Abuse, 09/03/2013 Tobacco - High Risk, 09/03/2013 Former smoker, quit more than 30 days ago Tobacco Use:. Never Smokeless Tobacco Use:. Cigarettes, Ready to change: No. Household tobacco concerns: No., 06/21/2023 Family History Primary malignant neoplasm of female breast: Mother, Sister and Aunt. Immunizations Vaccine Date Status Comments influenza virus vaccine, inactivated 05/09/2023 Given influenza virus vaccine, inactivated - Not Given Patient Refuses influenza virus vaccine, inactivated - Not Given Patient Refuses SARS- (more content not included)... [facility] Comment on above: Result Comment: Elec tronically Signed By: Frank GAUTHIER, Rosalba Arthur\.br\Date and Time Signed: 06/27/23 11:46 EDT Physician Orderon 06-27-2023 Physician Order [id number] #1.00TIFF [facility] Family Medicine Office/Clini c Noteon 06-22-2023 Family Medicine Office/Clinic Note HPI Staff Pt presents for COPD acting up HT 167 flu UTD *would like a proair or equivlant sent to [facility] Cough, no runny nose. Started A month ago, not got completely better. Yellow phlegm- almost neon green/yellow. Denies fever/new or worsening body aches/chills. History of Present Illness 62 year old female patient presents today with exacerbation of COPD. She was seen by pulmonology in April and completed PFT's on 06/06/2023. She has a f/u appointment with pulmonology next week. Her pulse ox is 93% today in [facility] office. She reports she completed a breathing treatment about 4 hours prior to coming to the office. She is requesting Albuterol HFA to have for when she is not at home to use the nebulizer machine. Review of Systems PHQ Score Initial Depression Screen Score: 0 Constitutional: no fever, no chills, no sweats, no weakness Respiratory: moderate shortness of breath, no cough, no orthopnea, no wheezing Cardiovascular: no chest pain, no palpitations, no edema Additional ROS info: Except as noted in the above Review of Systems and in the History of Present Illness all other systems have been reviewed and are negative or noncontributory. Physical Exam Vitals & Measurements T: 36.3 ?C(Temporal Artery) HR: 96(Peripheral) RR: 24 BP: 144/92 SpO2: 93% HT: 66 in HT: 167 cm WT: 136 kg WT: 299.2 lb BMI: 48.76 General: alert, no acute distress ENMT: TM's clear, oral mucosa moist, no pharyngeal erythema or exudate Cardiovascular: regular rate and rhythm, normal peripheral perfusion Respiratory: Lungs expiratory wheezes, respirations non labored Extremities: no deformity, no trauma Neurological: oriented x 4, LOC appropriate for age, CN II-XII intact, motor strength equal & normal bilaterally, sensation equal & normal bilaterally, speech normal Assessment/Plan 1. COPD type B (J44.9: Chronic obstructive pulmonary disease, unspecified) Reviewed PFT test completed by the institutional cook Encouraged to f/u with pulmonology f/u in 3 months Ordered: albuterol, 2 puff(s), Inhalation, q6hr, 18 gm, Refill(s) 1, [facility] 167, cm, 06/21/23 11:26:00 EDT, Height/Length Dosing, 136, kg, 06/21/23 11:26:00 EDT, Weight Dosing azithromycin, See Instructions, 1 tab(s) Oral, # 6 tab(s), Refills(s) 0, Pharmacy: [facility], 167, cm, 06/21/23 11:26:00 EDT, Height/Length Dosing, 136, kg, 06/21/23 11:26:00 EDT, Weight Dosing 2. BMI 45.0-49.9, adult (Z68.42: Body mass index [BMI] 45.0-49.9, adult) 3. Morbid obesity (E66.01: Morbid (severe) obesity due to excess calories) Orders: albuterol, 0.083% - 3mL dosing units, Inhalation, q4hr as needed for wheezing, 50 EA, Refill(s) 1, [facility], 167, cm, 06/21/23 11:26:00 EDT, Height/Length Dosing, 136, kg, 06/21/23 11:26:00 EDT, Weight Dosing Total time spent preparing the chart, conducting of the encounter with the patient and family and time spent documenting, reviewing, and ordering tests was 30 minutes. Follow-up No qualifying data available Patient Education Chronic Obstructive Pulmonary Disease Exacerbation, Vxdm-dl-Uuky Problem List/Past Medical History Ongoing Acute bronchitis BMI 45.0-49.9, adult Chronic bronchitis COPD type B Impaired fasting glucose Intrinsic asthma Mixed hyperlipidemia Morbid obesity Historical Chronic bronchitis Procedure/Surgical History Hip arthrogram (05/19/2019), Arthroplasty of shoulder (05/21/2017), left total knee arthroplasty (07/21/2014), right total knee arthroplasty (09/23/2013), Arthroplasty of the hip, Bilateral tubal ligation, section, Excision of cyst, Hemorrhoidectomy, Ligation and stripping of varicose vein of lower limb, Meniscus tear.. Medications Albuterol (Eqv-ProAir HFA) 90 mcg/inh inhalation aerosol, 2 puff(s), Inhalation, q6hr, 1 refills albuterol 0.083% Inh Sandi 3 mL, 0.083% - 3mL dosing units, Inhalation, q4hr, PRN, 1 refills azithromycin 250 mg Tab 5-day Dose Pack (Z-Austyn), See Instructions Symbicort 160/4.5 inhalation aerosol with adapter, 2 puff(s), Inhalation, BID, 4 refills Allergies No Known Medication Allergies Strawberries (Blotchy) Social History Alcohol - Denies Alcohol Use, 09/03/2013 Substance Abuse - Denies Substance Abuse, 09/03/2013 Tobacco - High Risk, 09/03/2013 Former smoker, quit more than 30 days ago Tobacco Use:. Never Smokeless Tobacco Use:. Cigarettes, Ready to change: No. Household tobacco concerns: No., 06/21/2023 Family History Primary malignant neoplasm of female breast: Mother, Sister and Aunt. Immunizations Vaccine Date Status Comments influenza virus vaccine, inactivated 05/09/2023 Given influenza virus vaccine, inactivated - Not Given Patient Refuses influenza virus vaccine, inactivated - Not Given Patient Refuses SARS-CoV-2 (COVID-19) mRNA BNT-162b2 vax 07/11/2021 Given SARS-CoV-2 (COVID-19) mRNA BNT-162b2 vax 12/10/2020 Given Prophylaxis SARS-CoV-2 (COVID-19) mRNA BNT-162b2 vax 11/13/19 (more content not included)... [facility] Comment on above: Result Comment: Elec tronically Signed By: MIKALA WINTER CNP\.br\Date and Time Signed: 06/21/23 22:43 EDT Patient Educationon 06-22-20 Patient Education Pulmonary Medicine Chronic Obstructive Pulmonary Disease Exacerbation Chronic obstructive pulmonary disease (COPD) is a long-term (chronic) lung problem. In COPD, the flow of air from the lungs is limited. COPD exacerbations are times that breathing gets worse and you need more than your normal treatment. Without treatment, they can be life-threatening. If they happen often, your lungs can become more damaged. What are the causes? ? Having infections that affect your airways and lungs. ? Being exposed to: ? Smoke. ? Air pollution. ? Chemical fumes. ? Dust. ? Things that can cause an allergic reaction (allergens). ? Not taking your usual COPD medicines as told. ? Having medical problems already, such as heart failure or infections not involving the lungs. In many cases, the cause is not known. What increases the risk? ? Smoking. ? Being an older adult. ? Having frequent prior COPD exacerbations. What are the signs or symptoms? ? Increased coughing. ? Increased mucus from your lungs. ? Increased wheezing. ? Increased shortness of breath. ? Fast breathing and finding it hard to breathe. ? Chest tightness. ? Less energy than usual. ? Sleep disruption from symptoms. ? Confusion. ? Increased sleepiness. Often, these symptoms happen or get worse even with the use of medicines. How is this treated? Treatment for this condition depends on how bad it is and the cause of the symptoms. You may need to stay in the hospital for treatment. Treatment may include: ? Taking medicines. ? Using oxygen. ? Being treated with different ways to clear your airway, such as using a mask to deliver oxygen. Follow these instructions at home: Medicines ? Take jwlh-osz-rczkamw and prescription medicines only as told by your doctor. ? Use all inhaled medicines the correct way. ? If you were prescribed an antibiotic or steroid medicine, take it as told by your doctor. Do not stop taking it even if you start to feel better. Lifestyle ? Do not smoke or use any products that contain nicotine or tobacco. If you need help quitting, ask your doctor. ? Eat healthy foods. ? Exercise regularly. ? Get enough sleep. Most adults need 7 or more hours per night. ? Avoid tobacco smoke and other things that can bother your lungs. ? Several times a day, wash your hands with soap and water for at least 20 seconds. If you cannot use soap and water, use hand cae engineer. This may help keep you from getting an infection. ? During flu season, avoid areas that are crowded with people. General instructions ? Drink enough fluid to keep your pee (urine) pale yellow. Do not do this if your doctor has told you not to. ? Use a cool mist machine (vaporizer). ? If you use oxygen or a machine that turns medicine into a mist (nebulizer), continue to use it as told. ? Keep all follow-up visits. How is this prevented? ? Keep up with shots (vaccinations) as told by your doctor. Be sure to get a yearly flu (influenza) shot. ? If you smoke, quit smoking. Smoking makes the problem worse. ? Follow all instructions for rehabilitation. These are steps you can take to make your body work better. ? Work with your doctor to develop and follow an action plan. This tells you what steps to take when you experience certain symptoms. Contact a doctor if: ? Your COPD symptoms get worse than normal. Get help right away if: ? You are short of breath and it gets worse, even when you are resting. ? You have trouble talking. ? You have chest pain. ? You cough up blood. ? You have a fever. ? You keep vomiting. ? You feel weak or you pass out (faint). ? You feel confused. ? You are not able to sleep because of your symptoms. ? You have trouble doing daily activities. These symptoms may be an emergency. Get help right away. Call your local emergency services (911 in the [place] ? Do not wait to see if the symptoms will go away. ? Do not drive yourself to the hospital. Summary ? COPD exacerbations are times that breathing gets worse and you need more treatment than normal. ? COPD exacerbations can be very serious and may cause your lungs to become more damaged. ? Do not smoke. If you need help quitting, ask your doctor. ? Stay up to date on your shots. Get a flu shot every year. This information is not intended to replace advice given to you by your health care provider. Make sure you discuss any questions you have with your health care provider. Document Revised: 07/06/2021 Document Reviewed: 06/21/2021 [employer] Patient Education ? 2022 [employer] [facility] Pulmonary Function Studieson 06-06-2023 Pulmonary Function Studies PULMONARY FUNCTION TEST: 06/04/2023 REQUESTING PHYSICIAN: Rosalba Marie M.D. REASON FOR TESTING: Chronic obstructive pulmonary disease. Spirometry results are acceptable and reproducible. The FVC was 1.65 liters or 50% of predicted. The FEV1 was 1.07 liters or 42% of predicted with a ratio of 65%. There was borderline improvement in the FEV1 with the administration of bronchodilators. Lung volumes showed a total lung capacity of 77% of predicted, residual volume of 118% of predicted with a ratio of 58%. Diffusion capacity of carbon monoxide was 92% of predicted and when adjusted to alveolar volume at 133% of predicted. Oxygen desaturation study was performed while the patient was ambulating on room air. The patient had the lowest oxygen saturation of 92% and did not require oxygen supplementation. IMPRESSION: Pulmonary function test results are suggestive of a combined obstructive and restrictive lung disease pattern with evidence of air trapping. The diffusion capacity is within normal range. Desaturation study showed no evidence of oxygen desaturation while the patient was ambulating on room air. When compared to patient's prior pulmonary function test performed on November 16, 2020, there has been a significant decrease in the total lung capacity and the FEV1 since then. READ BY: Tia Alfaro M.D. Dictated: 06/06/2023 [id number] Transcribed: 06/06/2023 cc:Rosalba Marie M.D. [facility] Comment on above: Result Comment: Elec tronically Signed By: Dominic GAUTHIER, Tia GIsrael\.br\Date and Time Signed: 06/06/23 09:58 EDT Consent for Treatmenton Consent for Treatment [id number] #1.00TIFF [facility] Pulmonary Function Testson Pulmonary Function Tests [id number] 4#1.00TIFF [facility] Consent for Treatmenton Consent for Treatment [id number] #1.00CD:127 [facility] Consent for Treatment [id number] #1.00CD:127 [facility] Physician Orderon 05-29-2023 Physician Order [id number] #1.00CD:127 [facility] Insurance Correspondenceon Insurance Correspondence [id number] 2#1.00CD:127 [facility] Consent for Treatmenton 04-28 Consent for Treatment [id number] #1.00CD:127 [facility] Heart and Vascular Office/Cl inic Noteon 05-18-2023 Heart and Vascular Office/Clinic Note Chief Complaint establish care COPD History of Present Illness This is 62-year-old female with past medical history significant for COPD, nicotine dependence. She was on Symbicort she ran out of her medication few weeks ago then she had flareup of COPD with bronchitis she was in urgent care treated with antibiotic and steroid and she is doing better. Chest x-ray with mild hyperinflation and cardiomegaly. She does have chronic lower extremity edema She does have snoring, interrupted sleep, daytime sleepiness Review of Systems PHQ Score Initial Depression Screen Score: 0 12 point system review was done and negative except what mentioned in HPI Physical Exam Vitals & Measurements HR: 78(Peripheral) BP: 154/88 SpO2: 98% HT: 66 in HT: 167 cm WT: 136 kg WT: 299.2 lb BMI: 48.76 General: no distress Skin: warm? , dry? Head: no? trauma, normocephalic? Neck: Trachea midline? , no? adenopathy, no? tenderness Eye: normal? conjunctiva, sclera clear? ENMT: oral mucosa moist? Cardiovascular: regular? rate and rhythm, normal? Respiratory: Lungs CTA? ,respirations non labored? Chest wall: no? deformity. Gastrointestinal: soft? , non distended? , no? tenderness, no? guarding. Extremities: no? deformity, no? trauma, positive edema Neurological: nonfocal Assessment/Plan 1. COPD type B (J44.9: Chronic obstructive pulmonary disease, unspecified) I will obtain pulmonary function test and 6-minute walk test, I will refer her for pulmonary rehab program. I agree with Symbicort and albuterol as needed Ordered: Pulmonary Function Testing Pulmonary Function Testing Pulmonary Rehab - Ambulatory Referral Sleep Study Baseline 2. WINNIE (obstructive sleep apnea) (G47.33: Obstructive sleep apnea (adult) (pediatric)) She has multiple risk factors and symptoms of sleep apnea I will refer her for sleep study Ordered: Pulmonary Function Testing Pulmonary Function Testing Sleep Study Baseline Follow-up No qualifying data available 4-6 weeks after testing Problem List/Past Medical History Ongoing Acute bronchitis BMI 40.0-44.9, adult Chronic bronchitis COPD type B Impaired fasting glucose Intrinsic asthma Mixed hyperlipidemia Historical Chronic bronchitis Procedure/Surgical History Hip arthrogram (05/19/2019), Arthroplasty of shoulder (05/21/2017), left total knee arthroplasty (07/21/2014), right total knee arthroplasty (09/23/2013), Arthroplasty of the hip, Bilateral tubal ligation, section, Excision of cyst, Hemorrhoidectomy, Ligation and stripping of varicose vein of lower limb, Meniscus tear.. Medications albuterol 0.083% Inh Sandi 3 mL, 0.083% - 3mL dosing units, Inhalation, q4hr, PRN, 1 refills Symbicort 160/4.5 inhalation aerosol with adapter, 2 puff(s), Inhalation, BID, 4 refills Allergies Strawberries (Blotchy) Social History Alcohol - Denies Alcohol Use, 09/03/2013 Substance Abuse - Denies Substance Abuse, 09/03/2013 Tobacco - High Risk, 09/03/2013 Former smoker, quit more than 30 days ago Tobacco Use:. Never Smokeless Tobacco Use:. Cigarettes, Ready to change: No. Household tobacco concerns: No., 05/18/2023 Family History Primary malignant neoplasm of female breast: Mother, Sister and Aunt. Immunizations Vaccine Date Status Comments influenza virus vaccine, inactivated 05/09/2023 Given influenza virus vaccine, inactivated - Not Given Patient Refuses influenza virus vaccine, inactivated - Not Given Patient Refuses SARS-CoV-2 (COVID-19) mRNA BNT-162b2 vax 07/11/2021 Given SARS-CoV-2 (COVID-19) mRNA BNT-162b2 vax 12/10/2020 Given Prophylaxis SARS-CoV-2 (COVID-19) mRNA BNT-162b2 vax 11/12/2020 Given Prophylaxis [facility] Comment on above: Result Comment: Elec tronically Signed By: Frank GAUTHIER, Rosalba Arthur\.br\Date and Time Signed: 05/18/23 14:43 EDT Physician Orderon 05-18-2023 Physician Order [id number] 1#1.00CD:127 [facility] Physician Order [id number] #1.00CD:127 [facility] Ambulatory Visit Summaryon 0 05-16-2023 Ambulatory Visit Summary LIZETT GRIDER :1960 Visit Date:05/16/2023 Ambulatory Visit Instructions Your Diagnosis Chronic bronchitis Acute bronchitis Your Care Team Attending Physician - MIKALA WINTER CNP Primary Care Physician - MIKALA WINTER CNP This Is Your Medications List Contact prescribing physician if questions or concerns albuterol (albuterol 0.083% Inh Sandi 3 mL) budesonide-formotero l (Symbicort 160/4.5 inhalation aerosol with adapter) Procedures Performed Hip arthrogram (05/19/2019), Arthroplasty of shoulder (05/21/2017), left total knee arthroplasty (07/21/2014), right total knee arthroplasty (09/23/2013), Arthroplasty of the hip, Bilateral tubal ligation, section, Excision of cyst, Hemorrhoidectomy, Ligation and stripping of varicose vein of lower limb, Meniscus tear.. Discharge Vitals Heart Rate (Peripheral) 79 Blood Pressure 142/80 Height 167 cm Height 66 in Weight 137 kg Weight 301.4 lb BMI 49.12 What to do next Scheduled Follow-Up Appointments Sunday 10:15 AM EDT With: Frank GAUTHIER, Rosalba Arthur Where: [facility] Sunday 8:00 AM EST With: Yaniv MARRUFO DO Where: [facility] Herminio Normal [facility] Family Medicine Office/Clini c Noteon 05-16-2023 Family Medicine Office/Clinic Note Chief Complaint f/u COPD HPI Staff Patient presents to office for 1 week f/u of COPD and bronchitis. Patient is here for follow up on COPD. Have you had any ER visits or any hospitalizations? no Do you have any changes in sputum quantity or color? no Do you have SOB or JARRELL? no Do you have an increased cough? no Are you compliant with your medications? yes Are you having difficulty affording your medications? no Do you use O2? no Is the new nebulizer helping? New nebulizer is not working, but patient has been using 's machine and is doing much better. Have you heard from pulmonology or referrals to set up appointment? yes, appointment with tomorrow Dr. Connolly. History of Present Illness Patient presents today for re-evaluation of acute bronchitis. Patient states she has been doing the albuterol aerosol treatments as prescribed and using the symbicort BID now. She states she feels much better. Her pulse ox is 95% today in the office. She does not need any refills of medication. She has no additional concerns today at this visit. Review of Systems Constitutional: no fever, no chills, no sweats, no weakness Respiratory: mild shortness of breath, no cough, no orthopnea, no wheezing Cardiovascular: no chest pain, no palpitations, no edema Additional ROS info: Except as noted in the above Review of Systems and in the History of Present Illness all other systems have been reviewed and are negative or noncontributory. Physical Exam Vitals & Measurements HR: 79(Peripheral) BP: 138/80 SpO2: 95% HT: 66 in HT: 167 cm WT: 137 kg WT: 301.4 lb BMI: 49.12 General: alert, no acute distress ENMT: TM's clear, oral mucosa moist, no pharyngeal erythema or exudate Cardiovascular: regular rate and rhythm, normal peripheral perfusion Extremities: no deformity, no trauma Neurological: oriented x 4, LOC appropriate for age, CN II-XII intact, motor strength equal & normal bilaterally, sensation equal & normal bilaterally, speech normal Respiratory: Work Of Breathing: Tachypnea Not Present Intercostal Retractions Not Present Suprasternal Retractions Not Present Use of Accessory Muscles Not Present Hypopnea Not Present Ataxic, Irregular Pattern Not Present Auscultation: Clear Breath Sounds Not Present Coarse Breath Sounds Not Present Decreased Breath Sounds RLL & LL Rales/Crackles Not Present Inspiratory Wheezes Not Present Expiratory Wheezes Not Present Assessment/Plan 1. Chronic bronchitis (J42: Unspecified chronic bronchitis) Continue current medications Pulse ox 95% Continue with smoking cessation f/u in 3 months 2. Acute bronchitis (J20.9: Acute bronchitis, unspecified) Improved Continue current medications f/u in 3 months Follow-up With When Contact Information MAGGY HARE, MIKALA Mendoza, MAXIMO Within 3 months [address] [place] [address]- [facility] (1) Additional Instructions: COPD Patient Education Chronic Bronchitis, Adult Problem List/Past Medical History Ongoing Acute bronchitis BMI 40.0-44.9, adult Chronic bronchitis COPD type B Impaired fasting glucose Intrinsic asthma Mixed hyperlipidemia Historical Chronic bronchitis Procedure/Surgical History Hip arthrogram (05/19/2019), Arthroplasty of shoulder (05/21/2017), left total knee arthroplasty (07/21/2014), right total knee arthroplasty (09/23/2013), Arthroplasty of the hip, Bilateral tubal ligation, section, Excision of cyst, Hemorrhoidectomy, Ligation and stripping of varicose vein of lower limb, Meniscus tear.. Medications albuterol 0.083% Inh Sandi 3 mL, 0.083% - 3mL dosing units, Inhalation, q4hr, PRN, 1 refills Symbicort 160/4.5 inhalation aerosol with adapter, 2 puff(s), Inhalation, BID, 4 refills Allergies Strawberries (Blotchy) Social History Alcohol - Denies Alcohol Use, 09/03/2013 Substance Abuse - Denies Substance Abuse, 09/03/2013 Tobacco - High Risk, 09/03/2013 Former smoker, quit more than 30 days ago Tobacco Use:. Never Smokeless Tobacco Use:. Cigarettes, Ready to change: No. Household tobacco concerns: No., 05/16/2023 Family History Primary malignant neoplasm of female breast: Mother, Sister and Aunt. Immunizations Vaccine Date Status Comments influenza virus vaccine, inactivated 05/09/2023 Given influenza virus vaccine, inactivated - Not Given Patient Refuses influenza virus vaccine, inactivated - Not Given Patient Refuses SARS-CoV-2 (COVID-19) mRNA BNT-162b2 vax 07/11/2021 Given SARS-CoV-2 (COVID-19) mRNA BNT-162b2 vax 12/10/2020 Given Prophylaxis SARS-CoV-2 (COVID-19) mRNA BNT-162b2 vax 11/12/2020 Given Prophylaxis Normal [facility] Comment on above: Result Comment: Elec tronically Signed By: MIKALA WINTER CNP\.melinda\Date and Time Signed: 05/16/23 09:00 EDT Patient Educationon 05-16-20 Patient Education Pulmonary Medicine Chronic Bronchitis, Adult Chronic bronchitis is inflammation inside of the main airways (bronchi) that come off the windpipe (trachea) in the lungs. The swelling causes the airways to narrow and make more mucus than normal. This can make it hard to breathe and may cause coughing or noisy breathing (wheezing). This condition is a type of chronic obstructive pulmonary disease (COPD). Chronic bronchitis is often associated with other chronic respiratory conditions, such as emphysema, asthma, bronchiectasis, or cystic fibrosis. Chronic bronchitis is a long-term (chronic) condition. It is defined as a chronic cough with mucus (sputum) production: ? For at least 3 months of the year. ? For 2 years in a row. People with chronic bronchitis are more likely to get colds and other infections in the nose, throat, or airways. What are the causes? This condition is most often caused by: ? A history of smoking. ? Exposure to secondhand smoke or a smoky area for a long period of time. ? Frequent lung infections. ? Long-term exposure to certain fumes or chemicals that irritate the lungs. What are the signs or symptoms? Symptoms of chronic bronchitis may include: ? A cough that brings up mucus (productive cough). ? A whistling sound when you breathe (wheezing). ? Shortness of breath. ? Chest tightness or soreness. ? Fever or chills. ? Colds or respiratory infections that go away and return. How is this diagnosed? Your health care provider may diagnose this condition based on your signs and symptoms, especially if you have a cough that lasts a long time or keeps coming back. This condition may be diagnosed based on: ? Your symptoms and medical history. ? A physical exam, including listening to your lungs. ? Tests, such as: ? Testing a sputum sample. ? Blood tests. ? A chest X-ray. ? Tests of lung (pulmonary) function. How is this treated? There is no cure for chronic bronchitis. Treatment may help control your symptoms. This includes: ? Drinking fluids. This may help thin your mucus so it is easier to cough up. ? Mucus-clearing techniques. Your health care provider will show you which techniques are best for you. ? Medicines such as: ? Inhaled medicine (inhaler) to improve air flow in and out of your lungs. ? Antibiotics to treat or prevent bacterial lung infections. ? Mucus-thinning medicines. ? Pulmonary rehabilitation. This is a program that helps you learn how to manage your breathing problem. The program may include exercise, education, counseling, treatment, and support. ? Using oxygen therapy, if your blood oxygen level is very low. Follow these instructions at home: Medicines ? Take viml-nrj-yoyrcbz and prescription medicines only as told by your health care provider. ? If you were prescribed an antibiotic medicine, take it as told by your health care provider. Do not stop taking the antibiotic even if you start to feel better. Lifestyle ? Do not use any products that contain nicotine or tobacco. These products include cigarettes, chewing tobacco, and vaping devices, such as e-cigarettes. If you need help quitting, ask your health care provider. ? Stay away from other people's smoke (secondhand smoke) and any irritants that make you cough more, such as chemical fumes. ? Eat a healthy diet and get regular exercise. Talk with your health care provider about what activities are safe for you. ? Return to normal activities as told by your health care provider. Ask your health care provider what activities are safe for you. Preventing infections ? Stay up to date on all immunizations, including the pneumonia and flu vaccines. ? Wash your hands often with soap and water for at least 20 seconds. If soap and water are not available, use hand cae engineer. ? Avoid contact with people who have symptoms of a cold or the flu. ? Keep your environment free from any known allergens such as dust, mold, pets, and pollen. General instructions ? Get plenty of rest. ? Drink enough fluids to keep your urine pale yellow. ? Use oxygen therapy at home as directed. ? Follow instructions from your health care provider about how to use oxygen safely and take steps to prevent fire. ? Do not smoke while using oxygen or allow others to smoke in your home. ? Keep all follow-up visits. This is important. Contact a health care provider if: ? Your shortness of breath or coughing gets worse even when you take medicine. ? Your mucus gets thicker or changes color. ? You are not able to cough up your mucus. ? You have a fever. Get help right away if: ? You cough up blood. ? You have trouble breathing. ? You have chest pain. ? You feel dizzy or confused. These symptoms may represent a serious problem that is an emergency. Do not wait to see if the symptoms will go away. Get medical help right away. Call your local emergency s (more content not included)... Normal [facility] Clipboard Summaryon 05-10-20 Clipboard Summary {[id number]}CD:[id number] Normal [facility] Consent for Treatmenton 04-27 Consent for Treatment [id number] #1.00CD:127 Normal [facility] XR Chest 2 Viewson 3 XR Chest 2 Views Exam Date/Time: 05/10/2023 14:02 EDT Reason for Exam: J44.9, Z68.41;COPD Report IMPRESSION: NO EVIDENCE OF ACTIVE CHEST DISEASE. CLINICAL HISTORY: COPD, J44.9, Z68.41. Shortness of breath and cough. COMPARISON: 10/27/2020. COMMENT: The heart is within upper limits of normal in size. There is calcification at the aortic arch. The mediastinum is unremarkable. The central pulmonary vasculature appears within normal limits. No infiltration nor pleural effusion is evident. Partially included within the dfuzo-jk-jvpb is a metallic humeral head prosthesis at the left shoulder. No significant change is noted when compared to the prior exam. Ordering Provider: MIKALA WINTER FINAL REPORT Dictated: 05/10/2023 2:17 pm Oumar Robertson M.D. Signed (Electronic Signature): 05/10/2023 2:17 pm Signed by: Oumar Robertson M.D. Transcribed by: TINO Technologist: JAIMIE Technical Comments Radiation Dose: Ka,r in mGy = na DAP = na [facility] Ambulatory Visit Summaryon 0 05-09-2023 Ambulatory Visit Summary LIZETT GRIDER :1960 Visit Date:05/09/2023 Ambulatory Visit Instructions Your Diagnosis Chronic obstructive pulmonary disease, unspecified BMI 40.0-44.9, adult Immunization due Negative depression screening Your Care Team Attending Physician - MIKALA WINTER CNP Primary Care Physician - MIKALA WINTER CNP This Is Your Medications List albuterol (albuterol 0.083% Inh Sandi 3 mL) azithromycin (azithromycin 250 mg Tab 5-day Dose Pack (Z-Austyn)) budesonide-formotero l (Symbicort 160/4.5 inhalation aerosol with adapter) predniSONE (predniSONE 50 mg Tab) Procedures Performed Hip arthrogram (05/19/2019), Arthroplasty of shoulder (05/21/2017), left total knee arthroplasty (07/21/2014), right total knee arthroplasty (09/23/2013), Arthroplasty of the hip, Bilateral tubal ligation, section, Excision of cyst, Hemorrhoidectomy, Ligation and stripping of varicose vein of lower limb, Meniscus tear.. Discharge Vitals Heart Rate (Peripheral) 96 Blood Pressure 138/80 Height 167 cm Height 66 in Weight 137.9 kg Weight 303.38 lb BMI 49.45 What to do next Scheduled Follow-Up Appointments Sunday 8:20 AM EDT With: MIKALA WINTER CNP Where: [facility] [address] [place] [address]-\.br\ Medications\.br\ What How Much When Instructions\.br\ Unchanged albuterol (albuterol 0.083% Inh Sandi 3 mL) 0.083% - 3mL dosing units Inhalation Every 4 hours as needed for as needed for wheezing\.br\ Unchanged azithromycin (azithromycin 250 mg Tab 5-day Dose Pack (Z-Austyn)) 1 Packets By Mouth As Directed Duration: 5 Days as directed on package labeling \.br\ Unchanged budesonide-formot yuliya (Symbicort 160/ 4.5 inhalation aerosol with adapter) 2 Puffs Inhalation 2 times a day\.br\ Unchanged predniSONE (predniSONE 50 mg Tab) 1 Tablets By Mouth Every day Duration: 5 Days\.br\ Medications and Immunizations Administered\.br\ Given\.br\ albuterol 0.083% Inh Sandi 3 mL, 3 mL, NEB. For:\.br\ influenza virus vaccine, inactivated preservative-free quadrivalent intramuscular suspension, 0.5 mL, IntraMuscular. For: Immunization due\.br\ influenza virus vaccine, inactivated, IntraMuscular\.br \ Allergies\.br\ Strawberries (Blotchy)\.br\ Problems\.br\ Ongoing - Any problem that you are currently receiving treatment for.\.br\ Acute bronchitis\.br\ BMI 40.0-44.9, adult\.br\ Chronic bronchitis\.br\ COPD type B\.br\ Impaired fasting glucose\.br\ Intrinsic asthma\.br\ Mixed hyperlipidemia\.b r\ Historical - Any problem that you are no longer receiving treatment for.\.br\ Chronic bronchitis\.br\ Education Materials\.br\ Chronic Obstructive Pulmonary Disease Exacerbation\.br\ \.br\ Chronic obstructive pulmonary disease (COPD) is a long-term (chronic) lung problem. In COPD, the flow of air from the lungs is limited.\.br\ COPD exacerbations are times that breathing gets worse and you need more than your normal treatment. Without treatment, they can be life-threatening. If they happen often, your lungs can become more damaged.\.br\ What are the causes?\.br\ ? \.br\ Having infections that affect your airways and lungs.\.br\ ? \.br\ Being exposed to:\.br\ ? \.br\ Smoke.\.br\ ? \.br\ Air pollution.\.br\ ? \.br\ Chemical fumes.\.br\ ? \.br\ Dust.\.br\ ? \.br\ Things that can cause an allergic reaction (allergens).\.br\ ? \.br\ Not taking your usual COPD medicines as told.\.br\ ? \.br\ Having medical problems already, such as heart failure or infections not involving the lungs.\.br\ In many cases, the cause is not known.\.br\ What increases the risk?\.br\ ? \.br\ Smoking.\.br\ ? \.br\ Being an older adult.\.br\ ? \.br\ Having frequent prior COPD exacerbations.\.b r\ What are the signs or symptoms?\.br\ ? \.br\ Increased coughing.\.br\ ? \.br\ Increased mucus from your lungs.\.br\ ? \.br\ Increased wheezing.\.br\ ? \.br\ Increased shortness of breath.\.br\ ? \.br\ Fast breathing and finding it hard to breathe.\.br\ ? \.br\ Chest tightness.\.br\ ? \.br\ Less energy than usual.\.br\ ? \.br\ Sleep disruption from symptoms.\.br\ ? \.br\ Confusion.\.br\ ? \.br\ Increased sleepiness.\.br\ Often, these symptoms happen or get worse even with the use of medicines.\.br\ How is this treated?\.br\ Treatment for this condition depends on how bad it is and the cause of the symptoms. You may need to stay in the hospital for treatment. Treatment may include:\.br\ ? \.br\ Taking medicines.\.br\ ? \.br\ Using oxygen.\.br\ ? \.br\ Being treated with different ways to clear your airway, such as using a mask to deliver oxygen.\.br\ Follow these instructions at home:\.br\ Medicines\.br\ ? \.br\ Take goto-dai-hyhttoo and prescription medicines only as told by your doctor.\.br\ ? \.br\ Use all inhaled medicines the correct way.\.br\ ? \.br\ If you were prescribed an antibiotic or steroid medicine, take it as told by your doctor. Do not stop taking it even if you start to feel better.\.br\ Lifestyle\.br\ ? \.br\ Do not smoke or use any products that contain nicotine or tobacco. If you need help quitting, ask your doctor.\.br\ ? \.br\ Eat healthy foods.\.br\ ? \.br\ Exercise regularly.\.br\ ? \.br\ Get enough sleep. Most adults need 7 or more hours per night.\.br\ ? \.br\ Avoid tobacco smoke and other things that can bother your lungs.\.br\ ? \.br\ Several times a day, wash your hands with soap and water for at least 20 seconds. If you cannot use soap and water, use hand cae engineer. This may help keep you from getting an infection.\.br\ ? \.br\ During flu season, avoid areas that are crowded with people.\.br\ General instructions\.br\ ? \.br\ Drink enough fluid to keep your pee (urine) pale yellow. Do not do this if your doctor has told you not to.\.br\ ? \.br\ Use a cool mist machine (vaporizer).\.br\ ? \.br\ If you use oxygen or a machine that turns medicine into a mist (nebulizer), continue to use it as told.\.br\ ? \.br\ Keep all follow-up visits.\.br\ How is this prevented?\.br\ ? \.br\ Keep up with shots (vaccinations) as told by your doctor. Be sure to get a yearly flu (influenza) shot.\.br\ ? \.br\ If you smoke, quit smoking. Smoking makes the problem worse.\.br\ ? \.br\ Follow all instructions for rehabilitation. These are steps you can take to make your body work better.\.br\ ? \.br\ Work with your doctor to develop and follow an action plan. This tells you what steps to take when you experience certain symptoms.\.br\ Contact a doctor if:\.br\ ? \.br\ Your COPD symptoms get worse than normal.\.br\ Get help right away if:\.br\ ? \.br\ You are short of breath and it gets worse, even when you are resting.\.br\ ? \.br\ You have trouble talking.\.br\ ? \.br\ You have chest pain.\.br\ ? \.br\ You cough up blood.\.br\ ? \.br\ You have a fever.\.br\ ? \.br\ You keep vomiting.\.br\ ? \.br\ You feel weak or you pass out (faint).\.br\ ? \.br\ You feel confused.\.br\ ? \.br\ You are not able to sleep because of your symptoms.\.br\ ? \.br\ You have trouble doing daily activities.\.br\ These symptoms may be an emergency. Get help right away. Call your local emergency services (911 in the [place]\.br\ ? \.br\ Do not wait to see if the symptoms will go away.\.br\ ? \.br\ Do not drive yourself to the hospital.\.br\ Summary\.br\ ? \.br\ COPD exacerbations are times that breathing gets worse and you need more treatment than normal.\.br\ ? \.br\ COPD exacerbations can be very serious and may cause your lungs to become more damaged.\.br\ ? \.br\ Do not smoke. If you need help quitting, ask your doctor.\.br\ ? \.br\ Stay up to date on your shots. Get a flu shot every year.\.br\ This information is not intended to replace advice given to you by your health care provider. Make sure you discuss any questions you have with your health care provider.\.br\ Document Revised: 07/06/2021 Document Reviewed: 06/21/2021 Elsevier Patient Education ? 2022 [employer].br\ \.br\ [facility] Clipboard Summaryon 05-09-20 Clipboard Summary {[id number]}CD:[id number] Normal [facility] Consent for Flu Vaccineon Consent for Flu Vaccine [id number]# 1.00CD:127 Normal [facility] Family Medicine Office/Clini c Noteon 05-09-2023 Family Medicine Office/Clinic Note Chief Complaint acute exacerbation of chronic bronchitis HPI Staff Former [facility] patient. Patient is here for follow up on COPD. Have you had any ER visits or any hospitalizations? no Do you have any changes in sputum quantity or color? yes was yellow, but is now back to white-started a COPD emergency pack and sees some improvement. Do you have SOB or JARRELL? yes Do you have an increased cough? yes Are you compliant with your medications? yes is on Symbicort - does not have own nebulizer or medication. Uses husbands Are you having difficulty affording your medications? no Do you use O2? no History of Present Illness 62 year old female patient presents today in f/u to CC visit for exacerbation of chronic bronchitis. She received a rx for azithromycin & prednisone which should be finished yesterday. She has been using her 's nebulizer machine but her own albuterol. She states her last treatment was last PM. Her pulse ox today in the office is 91% on RA. She states she recently stopped smoking two weeks ago. She does have Symbicort as a maintenance medication. She has not been seen by pulmonology and is not opposed to being referred out for chronic COPD. Patient will receive a neb treatment of albuterol today in the office. Review of Systems PHQ Score Initial Depression Screen Score: 0 Constitutional: no fever, no chills, no sweats, no weakness Skin: no Jaundice, no rash, no lesions, nopetechiae ENMT: no ear pain, no sore throat, no congestion, no hoarseness Respiratory: moderate shortness of breath, no cough, no orthopnea, no wheezing Cardiovascular: no chest pain, no palpitations, no edema Gastrointestinal: no nausea, no vomiting, no diarrhea, no GI bleeding Genitourinary: no dysuria, no hematuria, no discharge, no pain Musculoskeletal: no back pain, no trauma Neurologic: no headache, no dizziness, no numbness, no weakness Psychiatric: no sleeping problems, no irritability, no mood swings/depression. Heme/Lymph: no bleeding tendency, no bruising tendency, no petechiae, no swollen nodes Allergy/Immunologic: no seasonal allergies, no food allergies, no recurrent infections, no impaired immunity Additional ROS info: Except as noted in the above Review of Systems and in the History of Present Illness all other systems have been reviewed and are negative or noncontributory. Physical Exam Vitals & Measurements HR: 96(Peripheral) BP: 138/80 SpO2: 91% HT: 66 in HT: 167 cm WT: 137.9 kg WT: 303.38 lb BMI: 49.45 General: alert, no acute distress Skin: warm, dry Head: no trauma, normocephalic Neck: Trachea midline, no adenopathy, no tenderness Eye: normal conjunctiva, sclera clear ENMT: TM's clear, oral mucosa moist, no pharyngeal erythema or exudate Cardiovascular: regular rate and rhythm, normal peripheral perfusion Respiratory: Lungs rales throughout, respirations labored Chest wall: no deformity. Extremities: no deformity, no trauma Neurological: oriented x 4, LOC appropriate for age, CN II-XII intact, motor strength equal & normal bilaterally, sensation equal & normal bilaterally, speech normal Psychiatric: cooperative, affect appropriate for age, normal judgement, normal psychiatric thoughts. Assessment/Plan 1. Chronic obstructive pulmonary disease, unspecified (J44.9: Chronic obstructive pulmonary disease, unspecified) Continue current medications Discussed with patient to utilize neb machine during acute exacerbation Reviewed report from CC visit and discussed Encouraged to continue with smoking cessation Pulse ox today in the office 91 % prior to in office treatment - increased to 93% on RA. Follow-up in one week Ordered: albuterol, 3 mL, Soln-Inh, NEB, Once, Stop date 05/09/23 10:00:00 EDT, Routine, Start date 05/09/23 10:00:00 EDT [facility] [place] Nebulizer administration set A7003 Pulse Oximetry POC 55098 2. BMI 40.0-44.9, adult (Z68.41: Body mass index [BMI] 40.0-44.9, adult) Discussed diet & exercise Monitor at each visit. Ordered: [facility] [place] 3. Immunization due (Z23: Encounter for immunization) Ordered: influenza virus vaccine, inactivated, 0.5 mL, Injection, IntraMuscular, Once, Stop date 05/09/23 11:00:00 EDT, Routine, Start date 05/09/23 11:00:00 EDT FIRST VACCINE w/o [employer] Admin Charge 03583 Negative depression screening (Z13.31: Encounter for screening for depression) Ordered: Depression Screening Negative 3352F Total time spent preparing the chart, conducting of the encounter with the patient and family and time spent documenting, reviewing, and ordering tests was 45 Follow-up No qualifying data available Patient Education Chronic Obstructive Pulmonary Disease Exacerbation, Xofv-vb-[id number] Problem List/Past Medical History Ongoing Acute bronchitis BMI 40.0-44.9, adult Chronic bronchitis COPD type B Impaired fasting glucose Intrinsic asthma Mixed hyperlipidemia Historical Transitional Care Liaison (more content not included)... Normal [facility] Comment on above: Result Comment: Elec tronically Signed By: MIKALA WINTER CNP\.melinda\Date and Time Signed: 05/09/23 12:50 EDT Patient Educationon 05-09-20 23 Patient Education Pulmonary Medicine Chronic Obstructive Pulmonary Disease Exacerbation Chronic obstructive pulmonary disease (COPD) is a long-term (chronic) lung problem. In COPD, the flow of air from the lungs is limited. COPD exacerbations are times that breathing gets worse and you need more than your normal treatment. Without treatment, they can be life-threatening. If they happen often, your lungs can become more damaged. What are the causes? ? Having infections that affect your airways and lungs. ? Being exposed to: ? Smoke. ? Air pollution. ? Chemical fumes. ? Dust. ? Things that can cause an allergic reaction (allergens). ? Not taking your usual COPD medicines as told. ? Having medical problems already, such as heart failure or infections not involving the lungs. In many cases, the cause is not known. What increases the risk? ? Smoking. ? Being an older adult. ? Having frequent prior COPD exacerbations. What are the signs or symptoms? ? Increased coughing. ? Increased mucus from your lungs. ? Increased wheezing. ? Increased shortness of breath. ? Fast breathing and finding it hard to breathe. ? Chest tightness. ? Less energy than usual. ? Sleep disruption from symptoms. ? Confusion. ? Increased sleepiness. Often, these symptoms happen or get worse even with the use of medicines. How is this treated? Treatment for this condition depends on how bad it is and the cause of the symptoms. You may need to stay in the hospital for treatment. Treatment may include: ? Taking medicines. ? Using oxygen. ? Being treated with different ways to clear your airway, such as using a mask to deliver oxygen. Follow these instructions at home: Medicines ? Take mzwg-fxu-gitggdu and prescription medicines only as told by your doctor. ? Use all inhaled medicines the correct way. ? If you were prescribed an antibiotic or steroid medicine, take it as told by your doctor. Do not stop taking it even if you start to feel better. Lifestyle ? Do not smoke or use any products that contain nicotine or tobacco. If you need help quitting, ask your doctor. ? Eat healthy foods. ? Exercise regularly. ? Get enough sleep. Most adults need 7 or more hours per night. ? Avoid tobacco smoke and other things that can bother your lungs. ? Several times a day, wash your hands with soap and water for at least 20 seconds. If you cannot use soap and water, use hand cae engineer. This may help keep you from getting an infection. ? During flu season, avoid areas that are crowded with people. General instructions ? Drink enough fluid to keep your pee (urine) pale yellow. Do not do this if your doctor has told you not to. ? Use a cool mist machine (vaporizer). ? If you use oxygen or a machine that turns medicine into a mist (nebulizer), continue to use it as told. ? Keep all follow-up visits. How is this prevented? ? Keep up with shots (vaccinations) as told by your doctor. Be sure to get a yearly flu (influenza) shot. ? If you smoke, quit smoking. Smoking makes the problem worse. ? Follow all instructions for rehabilitation. These are steps you can take to make your body work better. ? Work with your doctor to develop and follow an action plan. This tells you what steps to take when you experience certain symptoms. Contact a doctor if: ? Your COPD symptoms get worse than normal. Get help right away if: ? You are short of breath and it gets worse, even when you are resting. ? You have trouble talking. ? You have chest pain. ? You cough up blood. ? You have a fever. ? You keep vomiting. ? You feel weak or you pass out (faint). ? You feel confused. ? You are not able to sleep because of your symptoms. ? You have trouble doing daily activities. These symptoms may be an emergency. Get help right away. Call your local emergency services (911 in the [place] ? Do not wait to see if the symptoms will go away. ? Do not drive yourself to the hospital. Summary ? COPD exacerbations are times that breathing gets worse and you need more treatment than normal. ? COPD exacerbations can be very serious and may cause your lungs to become more damaged. ? Do not smoke. If you need help quitting, ask your doctor. ? Stay up to date on your shots. Get a flu shot every year. This information is not intended to replace advice given to you by your health care provider. Make sure you discuss any questions you have with your health care provider. Document Revised: 07/06/2021 Document Reviewed: 06/21/2021 [employer] Patient Education ? 2022 [employer]. [facility] Physician Referralon 023 Physician Referral [id number] 6#1.00CD:127 Normal [facility] Family Medicine Office/Clini c Noteon 05-04-2023 Family Medicine Office/Clinic Note Chief Complaint EST cough, chest pain HPI Staff Lizett is a 62 year old female here for bronchitics worse in past 3 days Cough: yes Rhinorrhea: yes mild Nasal Congestion: yes mild Sore Throat: yes Ear Pain: yes both SOB: yes Chest Symptoms: no Fever/Chills: no taken- head and chest medicine History of Present Illness Portions of this record may have been created with voice recognition artificial intelligence software, specifically [employer] and or [employer]. Substitutions may have occurred due to the inherent limitations of voice recognition and artificial intelligence software. Staff hpi reviewed. Pt is 62 yoF complaint of cough, runny nose, wheezing. States symptoms began just over a week ago worse over the last 3 days. Does use an inhaler and a nebulizer machine. Pt is a smoker. No shortness of breath or difficulty breathing. No weakness or fatigue. No fever or chills. No headache. No sinus pressure, no complaints of ear pain or pressure. [place] allergies. Review of Systems PHQ Score Initial Depression Screen Score: 0 Physical Exam Vitals & Measurements T: 36.4 ?C(Oral) HR: 92(Peripheral) BP: 134/80 SpO2: 82% HT: 66 in HT: 167 cm WT: 133.5 kg WT: 293.7 lb BMI: 47.87 General - alert no acute distress Skin - warm dry Head -normocephalic atraumatic ENT- no pharyngeal erythema or exudates Cardiovascular - regular rate regular rhythm Respiratory - mild wheezing, non-labored respirations, breath sounds equal Assessment/Plan 1. Acute bronchitis (J20.9: Acute bronchitis, unspecified) Physical exam findings are consistent with bronchitis. Patient provided with azithromycin and prednisone. Patient has a inhaler and nebulizer machine at home. Does not need a refill on inhaler or ampules. Follow-up with primary care provider in 3-5 days sooner if worse. Azithromycin antibiotic has been provided for a take as written until gone. Prednisone is a steroid this will help reduce inflammation and decrease cough, continue on this until gone Alternate tylenol and motrin for any pain or fevers Stay hydrated, drink plenty of fluids Follow-up with primary care provider in 5-7 days sooner if worse. 2. BMI 45.0-49.9, adult (Z68.42: Body mass index [BMI] 45.0-49.9, adult) The standard range for ages 18 and older is >=18.5 and < 25 kg/m2. Your BMI today was above this range, this falls in the overweight to obese category and there are medical benefits to weight loss. We can offer counselling, referral, and/or medical support in addressing this problem. Your BMI and weight management will be followed at subsequent visits. Ordered: Body Mass Index (BMI) documented 3008F 3. Chronic bronchitis (J42: Unspecified chronic bronchitis) Same as above. 4. COPD type B (J44.9: Chronic obstructive pulmonary disease, unspecified) Same as above. 5. Intrinsic asthma (J45.909: Unspecified asthma, uncomplicated) Same as above. Orders: azithromycin, = 1 packet(s), Oral, As Directed, as directed on package labeling, X 5 day(s), # 6 tab(s), Refills(s) 0, Pharmacy: [id number], 167, cm, 05/04/23 12:04:00 EDT, Height/Length Dosing, 133.5, kg, 05/04/23 12:04:00 EDT, Weight Dosing predniSONE, 50 mg = 1 tab(s), Oral, Daily, X 5 day(s), # 5 tab(s), Refills(s) 0, Pharmacy: [id number], 167, cm, 05/04/23 12:04:00 EDT, Height/Length Dosing, 133.5, kg, 05/04/23 12:04:00 EDT, Weight Dosing Follow-up With When Contact Information Yaniv MARRUFO DO, [facility] [address] [facility] [place] [address]- Additional Instructions: Patient Education Acute Bronchitis, Adult How to Use a Nebulizer, Adult How to Use a Metered Dose Inhaler Cough, Adult, Nnnm-ag-Lsdt BMI for Adults Problem List/Past Medical History Ongoing Acute bronchitis BMI 40.0-44.9, adult Chronic bronchitis COPD type B Impaired fasting glucose Intrinsic asthma Mixed hyperlipidemia Historical Chronic bronchitis Procedure/Surgical History Hip arthrogram (05/19/2019), Arthroplasty of shoulder (05/21/2017), left total knee arthroplasty (07/21/2014), right total knee arthroplasty (09/23/2013), Arthroplasty of the hip, Bilateral tubal ligation, section, Excision of cyst, Hemorrhoidectomy, Ligation and stripping of varicose vein of lower limb, Meniscus tear.. Medications albuterol 0.083% Inh Sandi 3 mL, 0.083% - 3mL dosing units, Inhalation, q4hr, PRN, 1 refills azithromycin 250 mg Tab 5-day Dose Pack (Z-Austyn), 1 packet(s), Oral, As Directed predniSONE 50 mg Tab, 50 mg= 1 tab(s), Oral, Daily Symbicort 160/4.5 inhalation aerosol with adapter, 2 puff(s), Inhalation, BID, 4 refills Allergies Strawberries (Blotchy) Social History Alcohol - Denies Alcohol Use, 09/03/2013 Substance Abuse - Denies Substance Abuse, 09/03/2013 Tobacco - High Risk, 09/03/2013 Former smoker, quit more than 30 days ago Tobacco Use:. Never Smokeless Tobacco Use:. Cigarettes, (more content not included)... Normal [facility] Comment on above: Result Comment: Elec tronically Signed By: Gonsalo Dominguez PA-C, V.\.br\Date and Time Signed: 05/04/23 13:06 EDT Patient Educationon 05-04-20 Patient Education ENT Cough, Adult A cough helps to clear your throat and lungs. A cough may be a sign of an illness or another medical condition. An acute cough may only last 2?3 weeks, while a chronic cough may last 8 or more weeks. Many things can cause a cough. They include: ? Germs (viruses or bacteria) that attack the airway. ? Breathing in things that bother (irritate) your lungs. ? Allergies. ? Asthma. ? Mucus that runs down the back of your throat (postnasal drip). ? Smoking. ? Acid backing up from the stomach into the tube that moves food from the mouth to the stomach (gastroesophageal reflux). ? Some medicines. ? Lung problems. ? Other medical conditions, such as heart failure or a blood clot in the lung (pulmonary embolism). Follow these instructions at home: Medicines ? Take ublx-rjy-zmlpmjj and prescription medicines only as told by your doctor. ? Talk with your doctor before you take medicines that stop a cough (cough suppressants). Lifestyle ? Do not smoke, and try not to be around smoke. Do not use any products that contain nicotine or tobacco, such as cigarettes, e-cigarettes, and chewing tobacco. If you need help quitting, ask your doctor. ? Drink enough fluid to keep your pee (urine) pale yellow. ? Avoid caffeine. ? Do not drink alcohol if your doctor tells you not to drink. General instructions ? Watch for any changes in your cough. Tell your doctor about them. ? Always cover your mouth when you cough. ? Stay away from things that make you cough, such as perfume, candles, campfire smoke, or cleaning products. ? If the air is dry, use a cool mist vaporizer or humidifier in your home. ? If your cough is worse at night, try using extra pillows to raise your head up higher while you sleep. ? Rest as needed. ? Keep all follow-up visits as told by your doctor. This is important. Contact a doctor if: ? You have new symptoms. ? You cough up pus. ? Your cough does not get better after 2?3 weeks, or your cough gets worse. ? Cough medicine does not help your cough and you are not sleeping well. ? You have pain that gets worse or pain that is not helped with medicine. ? You have a fever. ? You are losing weight and you do not know why. ? You have night sweats. Get help right away if: ? You cough up blood. ? You have trouble breathing. ? Your heartbeat is very fast. These symptoms may be an emergency. Do not wait to see if the symptoms will go away. Get medical help right away. Call your local emergency services (911 in the [place] Do not drive yourself to the hospital. Summary ? A cough helps to clear your throat and lungs. Many things can cause a cough. ? Take ibcj-cok-ceuvnaw and prescription medicines only as told by your doctor. ? Always cover your mouth when you cough. ? Contact a doctor if you have new symptoms or you have a cough that does not get better or gets worse. This information is not intended to replace advice given to you by your health care provider. Make sure you discuss any questions you have with your health care provider. Document Revised: 10/01/2020 Document Reviewed: 09/01/2019 [employer] Patient Education ? 2022 [employer] Nutrition BMI for Adults What is BMI? Body mass index (BMI) is a number that is calculated from a person's weight and height. BMI can help estimate how much of a person's weight is composed of fat. BMI does not measure body fat directly. Rather, it is an alternative to procedures that directly measure body fat, which can be difficult and expensive. BMI can help identify people who may be at higher risk for certain medical problems. What are BMI measurements used for? BMI is used as a screening tool to identify possible weight problems. It helps determine whether a person is obese, overweight, a healthy weight, or underweight. BMI is useful for: ? Identifying a weight problem that may be related to a medical condition or may increase the risk for medical problems. ? Promoting changes, such as changes in diet and exercise, to help reach a healthy weight. BMI screening can be repeated to see if these changes are working. How is BMI calculated? BMI involves measuring your weight in relation to your height. Both height and weight are measured, and the BMI is calculated from those numbers. This can be done either in [place] or metric measurements. Note that charts and online BMI calculators are available to help you find your BMI quickly and easily without having to do these calculations yourself. To calculate your BMI in [place] measurements: 1. Measure your weight in pounds (lb). 2. Multiply the number of pounds by 703. ? For example, for a person who weighs 180 lb, multiply that number by 703, which equals 126,540. 3. Measure your height in inches. Then multiply that number by itself to get a measurement called in (more content not included)... Normal [facility] Vital Signs Date Time Vital Sign Value Performing Clinician Facility 08-16-2023 08:32-0500 Diastolic blood pressure 84 mm[Hg] MIKALA WINTER [facility] 08-16-2023 08:32-0500 Mean blood pressure 102 mm[Hg] MIKALA WINTER [facility] 08-16-2023 08:32-0500 Systolic blood pressure 138 mm[Hg] MIKALA WINTER [facility] 08-16-2023 08:03-0500 Blood Pressure Location MIKALA WINTER [facility] 08-16-2023 08:03-0500 Diastolic blood pressure 82 mm[Hg] MIKALA WINTER [facility] 08-16-2023 08:03-0500 Heart rate 97 /min MIKALA WINTER [facility] 08-16-2023 08:03-0500 SaO2% (BldA) [Mass fraction] 92 % MIKALA WINTER [facility] 08-16-2023 08:03-0500 Systolic blood pressure 146 mm[Hg] MIKALA WINTER [facility] 07-16-2023 12:35-0500 Blood Pressure Location Charan Mcknightpsey [facility] 07-16-2023 12:35-0500 Body temperature 97.88 [degF] Charan Mcknightpsey [facility] 07-16-2023 12:35-0500 Diastolic blood pressure 86 mm[Hg] Charan Miguel [facility] 07-16-2023 12:35-0500 Heart rate 86 /min Charan Miguel [facility] 07-16-2023 12:35-0500 SaO2% (BldA) [Mass fraction] 95 % Charan Rivera [facility] 07-16-2023 12:35-0500 Systolic blood pressure 136 mm[Hg] Charan Rivera [facility] 06-27-2023 10:00-0400 Diastolic blood pressure 88 mm[Hg] Rosalba Marie [facility] 06-27-2023 10:00-0400 Mean blood pressure 109 mm[Hg] Rosalba Coal [facility] 06-27-2023 10:00-0400 Systolic blood pressure 150 mm[Hg] Rosalba Fletcherm [facility] 06-27-2023 09:36-0400 Blood Pressure Location Basjcarlos Coal [facility] 06-27-2023 09:36-0400 Diastolic blood pressure 87 mm[Hg] Bashar Coal [facility] 06-27-2023 09:36-0400 Heart rate 104 /min Basjcarlos Coal [facility] 06-27-2023 09:36-0400 SaO2% (BldA) [Mass fraction] 92 % Basjcarlos Coal [facility] 06-27-2023 09:36-0400 Systolic blood pressure 158 mm[Hg] Bashar Coal [facility] 06-21-2023 11:50-0400 Diastolic blood pressure 92 mm[Hg] MIKALA MAGGY [facility] 06-21-2023 11:50-0400 Mean blood pressure 109 mm[Hg] MIKALA MAGGY [facility] 06-21-2023 11:50-0400 Systolic blood pressure 144 mm[Hg] MIKALA MAGGY [facility] 06-21-2023 11:23-0400 Blood Pressure Location MIKALA MAGGY [facility] 06-21-2023 11:23-0400 Body temperature 97.34 [degF] MIKALA MAGGY [facility] 06-21-2023 11:23-0400 Diastolic blood pressure 100 mm[Hg] MIKALA MAGGY [facility] 06-21-2023 11:23-0400 Heart rate 96 /min MIKALA MAGGY [facility] 06-21-2023 11:23-0400 Respiratory rate 24 /min MIKALA MAGGY [facility] 06-21-2023 11:23-0400 SaO2% (BldA) [Mass fraction] 93 % MIKALA MAGGY [facility] 06-21-2023 11:23-0400 Systolic blood pressure 172 mm[Hg] MIKALA MAGGY [facility] 05-18-2023 10:45-0400 Diastolic blood pressure 88 mm[Hg] Bashar Coal [facility] 05-18-2023 10:45-0400 Mean blood pressure 110 mm[Hg] Bashar Coal [facility] 05-18-2023 10:45-0400 Systolic blood pressure 154 mm[Hg] Bashar Coal [facility] 05-18-2023 10:26-0400 Blood Pressure Location Bashar Coal [facility] 05-18-2023 10:26-0400 Diastolic blood pressure 78 mm[Hg] Bashar Coal [facility] 05-18-2023 10:26-0400 Heart rate 78 /min Bashar Coal [facility] 05-18-2023 10:26-0400 SaO2% (BldA) [Mass fraction] 98 % Bashar Coal [facility] 05-18-2023 10:26-0400 Systolic blood pressure 176 mm[Hg] Bashar Coal [facility] 05-16-2023 08:55-0400 Diastolic blood pressure 80 mm[Hg] MIKALA MAGGY [facility] 05-16-2023 08:55-0400 Mean blood pressure 99 mm[Hg] MIKALA MAGGY [facility] 05-16-2023 08:55-0400 Systolic blood pressure 138 mm[Hg] MIKALA MAGGY [facility] 05-16-2023 08:40-0400 Blood Pressure Location MIKALA MAGGY [facility] 05-16-2023 08:40-0400 Diastolic blood pressure 80 mm[Hg] MIKALA MAGGY [facility] 05-16-2023 08:40-0400 Heart rate 79 /min MIKALA MAGGY [facility] 05-16-2023 08:40-0400 SaO2% (BldA) [Mass fraction] 95 % MIKALA MAGGY [facility] 05-16-2023 08:40-0400 Systolic blood pressure 142 mm[Hg] MIKALA MAGGY [facility] 05-09-2023 13:10-0400 SaO2% (BldA) [Mass fraction] 91 % MIKALA MAGGY [facility] 05-09-2023 08:59-0400 Blood Pressure Location MIKALA MAGGY [facility] 05-09-2023 08:59-0400 Diastolic blood pressure 80 mm[Hg] MIKALA MAGGY [facility] 05-09-2023 08:59-0400 Heart rate 96 /min MIKALA MAGGY [facility] 05-09-2023 08:59-0400 SaO2% (BldA) [Mass fraction] 91 % MIKALA MAGGY [facility] 05-09-2023 08:59-0400 Systolic blood pressure 138 mm[Hg] MIKALA WINTER [facility] 05-04-2023 12:01-0400 Blood Pressure Location Gonsalo Spasic [facility] 05-04-2023 12:01-0400 Body temperature 97.52 [degF] Gonsalo Spasic [facility] 05-04-2023 12:01-0400 Diastolic blood pressure 80 mm[Hg] Gonsalo Spasic [facility] 05-04-2023 12:01-0400 Heart rate 92 /min Gonsalo Spasic [facility] 05-04-2023 12:01-0400 SaO2% (BldA) [Mass fraction] 82 % Gonsalo Spasic [facility] 05-04-2023 12:01-0400 Systolic blood pressure 134 mm[Hg] Gonsalo Spasic [facility] 07-11-2022 08:02-0500 Blood Pressure Location Yaniv MARRUFO [facility] 07-11-2022 08:02-0500 Body temperature 97.34 [degF] Yaniv MARRUFO [facility] 07-11-2022 08:02-0500 Diastolic blood pressure 78 mm[Hg] Yaniv MARRUFO [facility] 07-11-2022 08:02-0500 Heart rate 82 /min Yaniv MARRUFO [facility] 07-11-2022 08:02-0500 SaO2% (BldA) [Mass fraction] 92 % Yaniv MARRUFO [facility] 07-11-2022 08:02-0500 Systolic blood pressure 132 mm[Hg] Yaniv MARRUFO [facility] Encounters Encounter Date Encounter Type Care Provider Facility Start: 08-16-2023 End: 08-17-2023 ambulatory MIKALA A MAGGY Facility:[facility] Start: 08-16-2023 End: 08-16-2023 Patient encounter procedure MIKALA A MAGGY [facility] Start: 07-24-2023 End: 07-25-2023 ambulatory Steve Dickinson [place] Start: 07-16-2023 ambulatory MIKALA MAGGY Facility :[facility] Start: 07-16-2023 End: 07-17-2023 ambulatory Charan Rivera Facility:[facility] Start: 07-16-2023 End: 07-16-2023 Patient encounter procedure Charan Rivera [facility] Start: 07-04-2023 ambulatory MIKALA A MAGGY Facili ty:[facility] Start: 06-27-2023 End: 06-28-2023 ambulatory XXXX NONE [place] Start: 06-27-2023 End: 06-27-2023 Patient encounter procedure Bashar X Coal [facility] Start: 06-21-2023 End: 06-22-2023 ambulatory MIKALA A MAGGY Facility:[facility] Start: 06-21-2023 End: 06-21-2023 Patient encounter procedure MIKALA A MAGGY [facility] Start: 06-04-2023 End: 06-05-2023 ambulatory Bashar X Coal [place] Start: 05-30-2023 End: 05-31-2023 ambulatory Bashar X Coal Facility[place] Start: 05-30-2023 End: 05-30-2023 Patient encounter procedure Tia Alfaro [facility] Start: 05-30-2023 End: 05-31-2023 ambulatory Bashar X Coal [place] Start: 05-30-2023 End: 05-30-2023 Patient encounter procedure Bashar X Coal [facility] Start: 05-18-2023 End: 05-19-2023 ambulatory Bashar X Coal Facility[place] Start: 05-18-2023 End: 05-18-2023 Patient encounter procedure Bashar X Coal [facility] Start: 05-16-2023 End: 05-17-2023 ambulatory MIKALA A MAGGY Facility:[facility] Start: 05-16-2023 End: 05-16-2023 Patient encounter procedure MIKALA A MAGGY [facility] Start: 05-10-2023 End: 05-11-2023 ambulatory MIKALA A MAGGY [place] Start: 05-09-2023 End: 05-10-2023 ambulatory MIKALA A MAGGY Facility:[facility] Start: 05-09-2023 End: 05-09-2023 Patient encounter procedure MIKALA A MAGGY [facility] Start: 05-04-2023 End: 05-05-2023 ambulatory Gonsalo V. Spasic [facility] Start: 05-04-2023 End: 05-04-2023 Patient encounter procedure Gonsalo V. Spasic [facility] Start: 07-11-2022 End: 07-11-2022 Patient encounter procedure Yaniv MARRUFO [facility] Procedures Date Procedure Procedure Detail Performing Clinician Start: 05-19-2019 Hip arthrogram Yaniv NIRU Comment on above: cortisone injection Start: 05-21-2017 Arthroplasty of shoulder Yaniv NIRU Comment on above: Left Start: 07-21-2014 left total knee arthroplasty Yaniv MARRUFO Start: 09-23-2013 right total knee arthroplasty Yaniv NIRU Bilateral tubal ligation Sheila mitchell NIRU section Yaniv SLAUGHTER NT Excision of cyst Yaniv SLAUGHTER NT Comment on above: back Hemorrhoidectomy Yaniv SLAUGHTER NT Ligation and strippi ng of varicose vein of lower limb Yaniv MARRUFO Comment on above: right Repair of hip Yaniv NIRU Comment on above: LEFT HIP TOTAL ARTHR OPLASTY COMPOUNDED BY OBESITY Tear of meniscus of knee (disorder) Yaniv NIRU Comment on above: left Immunizations Immunization Date Immunization Notes Care Provider Rigo ziegler 05-09-2023 influenza, injectable, quadrivalent, preservative free MIKALA WINTER [facility] 07-11-2021 COVID-19, mRNA, LNP-S, PF, 30 mcg/0.3 mL dose Yaniv MARRUFO [facility] 12-10-2020 COVID-19, mRNA, LNP-S, PF, 30 mcg/0.3 mL dose Yaniv MARRUFO [facility] Comment on above: Reason for Medicatio n: Prophylaxis 11-12-2020 COVID-19, mRNA, LNP-S, PF, 30 mcg/0.3 mL dose Yaniv MARRUFO [facility] Comment on above: Reason for Medicatio n: Prophylaxis NEGATED: Highlighted row has not occurred!07-16-2023 influenza virus vaccine, unspecified formulation Charan Mcknightpsey [facility] NEGATED: Highlighted row has not occurred!07-16-2023 SARS-CoV-2 mRNA (tozinameran 5y-11y) vaccine Charan Mcknightpsey [facility] NEGATED: Highlighted row has not occurred!05-04-2023 influenza virus vaccine, unspecified formulation Gonsalo Spacjc [facility] NEGATED: Highlighted row has not occurred!07-11-2022 influenza virus vaccine, unspecified formulation Yaniv MARRUFO [facility] [place] Payers Date Payer Category Payer Unknown [id number] 1960 Unknown [id number] 2.16.8 [id number] 1960 Unknown [id number] 2.16.8 [id number] 1960 Unknown [id number] 2.16.8 [id number] 1960 Unknown [id number] 2.16.8 [id number] 1960 Unknown [id number] 2.16.8 [id number] 1961 Unknown [id number] 2.16.8 [id number] 1960 Unknown [id number] 2.16.8 [id number] 1960 Unknown [id number] 2.16.8 [id number] 1960 Unknown [id number] 2.16.8 [id number] 1960 Unknown [id number] 2.16.8 [id number] 1960 Unknown [id number] 2.16.8 [id number] 1960 Unknown [id number] 2.16.8 [id number] 1960 Unknown [id number] 2.16.8 [id number] 1960 Unknown [id number] 2.16.8 [id number] Social History Date Type Detail Facility Start: 11-22-2020 End: 08-16-2023 Tobacco smoking status Ex-smoker (finding) [facility] Tobacco smoking status Never Wilfredo [facility] Sex Assigned At Female [facility] Functional Status Date Assessment Result Facility 08-16-2023 Functional Status N/A [facility] 07-16-2023 Functional Status N/A [facility] 06-27-2023 Functional Status No [facility] 06-21-2023 Functional Status N/A [facility] 05-18-2023 Functional Status No [facility] 05-16-2023 Functional Status N/A [facility] 05-09-2023 Functional Status N/A [facility] 05-04-2023 Functional Status N/A [facility] 07-11-2022 Functional Status N/A [facility] Clinical Notes 07-11-2021 to 12-21-2023 LaboratoryLaboratoryLaboratoryLaboratoryLaboratoryLaboratoryLaboratory Note Date & Type Note Facility 08-16-2023 Hospital Discharge instructions Patient Education 08/16/2023 12:34:09 Chronic Obstructive Pulmonary Disease, [place] Chronic Obstructive Pulmonary Disease Chronic obstructive pulmonary disease (COPD) is a long-term (chronic) lung problem. When you have COPD, it is hard for air to get in and out of your lungs. Usually the condition gets worse over time, and your lungs will never return to normal. There are things you can do to keep yourself as healthy as possible. What are the causes? Smoking. This is the most common cause. Certain genes passed from parent to child (inherited). What increases the risk? Being exposed to secondhand smoke from cigarettes, pipes, or cigars. Being exposed to chemicals and other irritants, such as fumes and dust in the work environment. Having chronic lung conditions or infections. What are the signs or symptoms? Shortness of breath, especially during physical activity. A long-term cough with a large amount of thick mucus. Sometimes, the cough may not have any mucus (dry cough). Wheezing. Breathing quickly. Skin that looks lópez or blue, especially in the fingers, toes, or lips. Feeling tired (fatigue). Weight loss. Chest tightness. Having infections often. Episodes when breathing symptoms become much worse (exacerbations). At the later stages of this disease, you may have swelling in the ankles, feet, or legs. How is this treated? Taking medicines. Quitting smoking, if you smoke. Rehabilitation. This includes steps to make your body work better. It may involve a team of specialists. Doing exercises. Making changes to your diet. Using oxygen. Lung surgery. Lung transplant. Comfort measures (palliative care). Follow these instructions at home: Medicines Take xgbg-hdo-vfcuaep and prescription medicines only as told by your doctor. Talk to your doctor before taking any cough or allergy medicines. You may need to avoid medicines that cause your lungs to be dry. Lifestyle If you smoke, stop smoking. Smoking makes the problem worse. Do not smoke or use any products that contain nicotine or tobacco. If you need help quitting, ask your doctor. Avoid being around things that make your breathing worse. This may include smoke, chemicals, and fumes. Stay active, but remember to rest as well. Learn and use tips on how to manage stress and control your breathing. Make sure you get enough sleep. Most adults need at least 7 hours of sleep every night. Eat healthy foods. Eat smaller meals more often. Rest before meals. Controlled breathing Learn and use tips on how to control your breathing as told by your doctor. Try: Breathing in (inhaling) through your nose for 1 second. Then, pucker your lips and breath out (exhale) through your lips for 2 seconds. Putting one hand on your belly (abdomen). Breathe in slowly through your nose for 1 second. Your hand on your belly should move out. Pucker your lips and breathe out slowly through your lips. Your hand on your belly should move in as you breathe out. Controlled coughing Learn and use controlled coughing to clear mucus from your lungs. Follow these steps: 1.Lean your head a little forward. 2.Breathe in deeply. 3.Try to hold your breath for 3 seconds. 4.Keep your mouth slightly open while coughing 2 times. 5.Spit any mucus out into a tissue. 6.Rest and do the steps again 1 or 2 times as needed. General instructions Make sure you get all the shots (vaccines) that your doctor recommends. Ask your doctor about a flu shot and a pneumonia shot. Use oxygen therapy and pulmonary rehabilitation if told by your doctor. If you need home oxygen therapy, ask your doctor if you should buy a tool to measure your oxygen level (oximeter). Make a COPD action plan with your doctor. This helps you to know what to do if you feel worse than usual. Manage any other conditions you have as told by your doctor. Avoid going outside when it is very hot, cold, or humid. Avoid people who have a sickness you can catch (contagious). Keep all follow-up visits. Contact a doctor if: You cough up more mucus than usual. There is a change in the color or thickness of the mucus. It is harder to breathe than usual. Your breathing is faster than usual. You have trouble sleeping. You need to use your medicines more often than usual. You have trouble doing your normal activities such as getting dressed or walking around the house. Get help right away if: You have shortness of breath while resting. You have shortness of breath that stops you from: ?Being able to talk. ?Doing normal activities. Your chest hurts for longer than 5 minutes. Your skin color is more blue than usual. Your pulse oximeter shows that you have low oxygen for longer than 5 minutes. You have a fever. You feel too tired to breathe normally. These symptoms may represent a serious problem that is an emergency. Do not wait to see if the symptoms will go away. Get medical help right away. Call your local emergency services (911 in the [place] Do not drive yourself to the hospital. Summary Chronic obstructive pulmonary disease (COPD) is a long-term lung problem. The way your lungs work will never return to normal. Usually the condition gets worse over time. There are things you can do to keep yourself as healthy as possible. Take yazj-vcw-rgvujif and prescription medicines only as told by your doctor. If you smoke, stop. Smoking makes the problem worse. This information is not intended to replace advice given to you by your health care provider. Make sure you discuss any questions you have with your health care provider. Document Revised: 06/21/2021 Document Reviewed: 06/21/2021 [employer] Patient Education 2022 [employer]. [facility] 07-16-2023 Hospital Discharge instructions Patient Education 07/16/2023 15:41:25 BMI for Adults BMI for Adults What is BMI? Body mass index (BMI) is a number that is calculated from a person's weight and height. BMI can help estimate how much of a person's weight is composed of fat. BMI does not measure body fat directly. Rather, it is an alternative to procedures that directly measure body fat, which can be difficult and expensive. BMI can help identify people who may be at higher risk for certain medical problems. What are BMI measurements used for? BMI is used as a screening tool to identify possible weight problems. It helps determine whether a person is obese, overweight, a healthy weight, or underweight. BMI is useful for: Identifying a weight problem that may be related to a medical condition or may increase the risk for medical problems. Promoting changes, such as changes in diet and exercise, to help reach a healthy weight. BMI screening can be repeated to see if these changes are working. How is BMI calculated? BMI involves measuring your weight in relation to your height. Both height and weight are measured, and the BMI is calculated from those numbers. This can be done either in [place] or metric measurements. Note that charts and online BMI calculators are available to help you find your BMI quickly and easily without having to do these calculations yourself. To calculate your BMI in [place] measurements: 1.Measure your weight in pounds (lb). 2.Multiply the number of pounds by 703. For example, for a person who weighs 180 lb, multiply that number by 703, which equals 126,540. 3.Measure your height in inches. Then multiply that number by itself to get a measurement called inches squared. For example, for a person who is 70 inches tall, the inches squared measurement is 70 inches x 70 inches, which equals 4,900 inches squared. 4.Divide the total from step 2 (number of lb x 703) by the total from step 3 (inches squared): 126,540 4,900 = 25.8. This is your BMI. To calculate your BMI in metric measurements: 1.Measure your weight in kilograms (kg). 2.Measure your height in meters (m). Then multiply that number by itself to get a measurement called meters squared. For example, for a person who is 1.75 m tall, the meters squared measurement is 1.75 m x 1.75 m, which is equal to 3.1 meters squared. 3.Divide the number of kilograms (your weight) by the meters squared number. In this example: 70 3.1 = 22.6. This is your BMI. What do the results mean? BMI charts are used to identify whether you are underweight, normal weight, overweight, or obese. The following guidelines will be used: Underweight: BMI less than 18.5. Normal weight: BMI between 18.5 and 24.9. Overweight: BMI between 25 and 29.9. Obese: BMI of 30 or above. Keep these notes in mind: Weight includes both fat and muscle, so someone with a muscular build, such as an athlete, may have a BMI that is higher than 24.9. In cases like these, BMI is not an accurate measure of body fat. To determine if excess body fat is the cause of a BMI of 25 or higher, further assessments may need to be done by a health care provider. BMI is usually interpreted in the same way for men and women. Where to find more information For more information about BMI, including tools to quickly calculate your BMI, go to these websites: Centers for Disease Control and Prevention: www.cdc.gov [place] [employer]: www.heart.org National Heart, Lung, and Blood [place]: www.nhlbi.nih.gov Summary Body mass index (BMI) is a number that is calculated from a person's weight and height. BMI may help estimate how much of a person's weight is composed of fat. BMI can help identify those who may be at higher risk for certain medical problems. BMI can be measured using [place] measurements or metric measurements. BMI charts are used to identify whether you are underweight, normal weight, overweight, or obese. This information is not intended to replace advice given to you by your health care provider. Make sure you discuss any questions you have with your health care provider. Document Revised: 05/05/2020 Document Reviewed: 03/12/2020 [employer] Patient Education 2022 [employer]. 07/16/2023 15:41:24 Cellulitis, Adult, Slgf-zo-Cizz Cellulitis, Adult Cellulitis is a skin infection. The infected area is often warm, red, swollen, and sore. It occurs most often in the arms and lower legs. It is very important to get treated for this condition. What are the causes? This condition is caused by bacteria. The bacteria enter through a break in the skin, such as a cut, burn, insect bite, open sore, or crack. What increases the risk? This condition is more likely to occur in people who: Have a weak body defense system (immune system). Have open cuts, [place], bites, or scrapes on the skin. Are older than 60 years of age. Have a blood sugar problem (diabetes). Have a long-lasting (chronic) liver disease (cirrhosis) or kidney disease. Are very overweight (obese). Have a skin problem, such as: ?Itchy rash (eczema). ?Slow movement of blood in the veins (venous stasis). ?Fluid buildup below the skin (edema). Have been treated with high-energy rays (radiation). Use IV drugs. What are the signs or symptoms? Symptoms of this condition include: Skin that is: ?Red. ?Streaking. ?Spotting. ?Swollen. ?Sore or painful when you touch it. ?Warm. A fever. Chills. Blisters. How is this diagnosed? This condition is diagnosed based on: Medical history. Physical exam. Blood tests. Imaging tests. How is this treated? Treatment for this condition may include: Medicines to treat infections or allergies. Home care, such as: ?Rest. ?Placing cold or warm cloths (compresses) on the skin. Hospital care, if the condition is very bad. Follow these instructions at home: Medicines Take tugn-oyt-qbzwhvz and prescription medicines only as told by your doctor. If you were prescribed an antibiotic medicine, take it as told by your doctor. Do not stop taking it even if you start to feel better. General instructions Drink enough fluid to keep your pee (urine) pale yellow. Do not touch or rub the infected area. Raise (elevate) the infected area above the level of your heart while you are sitting or lying down. Place cold or warm cloths on the area as told by your doctor. Keep all follow-up visits as told by your doctor. This is important. Contact a doctor if: You have a fever. You do not start to get better after 1 2 days of treatment. Your bone or joint under the infected area starts to hurt after the skin has healed. Your infection comes back. This can happen in the same area or another area. You have a swollen bump in the area. You have new symptoms. You feel ill and have muscle aches and pains. Get help right away if: Your symptoms get worse. You feel very sleepy. You throw up (vomit) or have watery poop (diarrhea) for a long time. You see red streaks coming from the area. Your red area gets larger. Your red area turns dark in color. These symptoms may represent a serious problem that is an emergency. Do not wait to see if the symptoms will go away. Get medical help right away. Call your local emergency services (911 in the [place] Do not drive yourself to the hospital. Summary Cellulitis is a skin infection. The area is often warm, red, swollen, and sore. This condition is treated with medicines, rest, and cold and warm cloths. Take all medicines only as told by your doctor. Tell your doctor if symptoms do not start to get better after 1 2 days of treatment. This information is not intended to replace advice given to you by your health care provider. Make sure you discuss any questions you have with your health care provider. Document Revised: 05/25/2022 Document Reviewed: 05/25/2022 [employer] Patient Education 2022 [employer]. Follow Up Care 07/16/2023 11:30:16 With:MIKALA WINTER CNP, FAM Address: [address] [place], [place] [id number]- When: Unknown [facility] 06-22-2023 Hospital Discharge instructions Patient Education 06/21/2023 22:43:07 Chronic Obstructive Pulmonary Disease Exacerbation, [id number] Chronic Obstructive Pulmonary Disease Exacerbation Chronic obstructive pulmonary disease (COPD) is a long-term (chronic) lung problem. In COPD, the flow of air from the lungs is limited. COPD exacerbations are times that breathing gets worse and you need more than your normal treatment. Without treatment, they can be life-threatening. If they happen often, your lungs can become more damaged. What are the causes? Having infections that affect your airways and lungs. Being exposed to: ?Smoke. ?Air pollution. ?Chemical fumes. ?Dust. ?Things that can cause an allergic reaction (allergens). Not taking your usual COPD medicines as told. Having medical problems already, such as heart failure or infections not involving the lungs. In many cases, the cause is not known. What increases the risk? Smoking. Being an older adult. Having frequent prior COPD exacerbations. What are the signs or symptoms? Increased coughing. Increased mucus from your lungs. Increased wheezing. Increased shortness of breath. Fast breathing and finding it hard to breathe. Chest tightness. Less energy than usual. Sleep disruption from symptoms. Confusion. Increased sleepiness. Often, these symptoms happen or get worse even with the use of medicines. How is this treated? Treatment for this condition depends on how bad it is and the cause of the symptoms. You may need to stay in the hospital for treatment. Treatment may include: Taking medicines. Using oxygen. Being treated with different ways to clear your airway, such as using a mask to deliver oxygen. Follow these instructions at home: Medicines Take atsj-xzw-osbihfu and prescription medicines only as told by your doctor. Use all inhaled medicines the correct way. If you were prescribed an antibiotic or steroid medicine, take it as told by your doctor. Do not stop taking it even if you start to feel better. Lifestyle Do not smoke or use any products that contain nicotine or tobacco. If you need help quitting, ask your doctor. Eat healthy foods. Exercise regularly. Get enough sleep. Most adults need 7 or more hours per night. Avoid tobacco smoke and other things that can bother your lungs. Several times a day, wash your hands with soap and water for at least 20 seconds. If you cannot use soap and water, use hand cae engineer. This may help keep you from getting an infection. During flu season, avoid areas that are crowded with people. General instructions Drink enough fluid to keep your pee (urine) pale yellow. Do not do this if your doctor has told you not to. Use a cool mist machine (vaporizer). If you use oxygen or a machine that turns medicine into a mist (nebulizer), continue to use it as told. Keep all follow-up visits. How is this prevented? Keep up with shots (vaccinations) as told by your doctor. Be sure to get a yearly flu (influenza) shot. If you smoke, quit smoking. Smoking makes the problem worse. Follow all instructions for rehabilitation. These are steps you can take to make your body work better. Work with your doctor to develop and follow an action plan. This tells you what steps to take when you experience certain symptoms. Contact a doctor if: Your COPD symptoms get worse than normal. Get help right away if: You are short of breath and it gets worse, even when you are resting. You have trouble talking. You have chest pain. You cough up blood. You have a fever. You keep vomiting. You feel weak or you pass out (faint). You feel confused. You are not able to sleep because of your symptoms. You have trouble doing daily activities. These symptoms may be an emergency. Get help right away. Call your local emergency services (911 in the [place] Do not wait to see if the symptoms will go away. Do not drive yourself to the hospital. Summary COPD exacerbations are times that breathing gets worse and you need more treatment than normal. COPD exacerbations can be very serious and may cause your lungs to become more damaged. Do not smoke. If you need help quitting, ask your doctor. Stay up to date on your shots. Get a flu shot every year. This information is not intended to replace advice given to you by your health care provider. Make sure you discuss any questions you have with your health care provider. Document Revised: 07/06/2021 Document Reviewed: 06/21/2021 [employer] Patient Education 2022 Storyful. [facility] 05-16-2023 Hospital Discharge instructions Patient Education 05/16/2023 09:00:09 Chronic Bronchitis, Adult Chronic Bronchitis, Adult Chronic bronchitis is inflammation inside of the main airways (bronchi) that come off the windpipe (trachea) in the lungs. The swelling causes the airways to narrow and make more mucus than normal. This can make it hard to breathe and may cause coughing or noisy breathing (wheezing). This condition is a type of chronic obstructive pulmonary disease (COPD). Chronic bronchitis is often associated with other chronic respiratory conditions, such as emphysema, asthma, bronchiectasis, or cystic fibrosis. Chronic bronchitis is a long-term (chronic) condition. It is defined as a chronic cough with mucus (sputum) production: For at least 3 months of the year. For 2 years in a row. People with chronic bronchitis are more likely to get colds and other infections in the nose, throat, or airways. What are the causes? This condition is most often caused by: A history of smoking. Exposure to secondhand smoke or a smoky area for a long period of time. Frequent lung infections. Long-term exposure to certain fumes or chemicals that irritate the lungs. What are the signs or symptoms? Symptoms of chronic bronchitis may include: A cough that brings up mucus (productive cough). A whistling sound when you breathe (wheezing). Shortness of breath. Chest tightness or soreness. Fever or chills. Colds or respiratory infections that go away and return. How is this diagnosed? Your health care provider may diagnose this condition based on your signs and symptoms, especially if you have a cough that lasts a long time or keeps coming back. This condition may be diagnosed based on: Your symptoms and medical history. A physical exam, including listening to your lungs. Tests, such as: ?Testing a sputum sample. ?Blood tests. ?A chest X-ray. ?Tests of lung (pulmonary) function. How is this treated? There is no cure for chronic bronchitis. Treatment may help control your symptoms. This includes: Drinking fluids. This may help thin your mucus so it is easier to cough up. Mucus-clearing techniques. Your health care provider will show you which techniques are best for you. Medicines such as: ?Inhaled medicine (inhaler) to improve air flow in and out of your lungs. ?Antibiotics to treat or prevent bacterial lung infections. ?Mucus-thinning medicines. Pulmonary rehabilitation. This is a program that helps you learn how to manage your breathing problem. The program may include exercise, education, counseling, treatment, and support. Using oxygen therapy, if your blood oxygen level is very low. Follow these instructions at home: Medicines Take cuoe-hdc-xyotxor and prescription medicines only as told by your health care provider. If you were prescribed an antibiotic medicine, take it as told by your health care provider. Do not stop taking the antibiotic even if you start to feel better. Lifestyle Do not use any products that contain nicotine or tobacco. These products include cigarettes, chewing tobacco, and vaping devices, such as e-cigarettes. If you need help quitting, ask your health care provider. Stay away from other people's smoke (secondhand smoke) and any irritants that make you cough more, such as chemical fumes. Eat a healthy diet and get regular exercise. Talk with your health care provider about what activities are safe for you. Return to normal activities as told by your health care provider. Ask your health care provider what activities are safe for you. Preventing infections Stay up to date on all immunizations, including the pneumonia and flu vaccines. Wash your hands often with soap and water for at least 20 seconds. If soap and water are not available, use hand cae engineer. Avoid contact with people who have symptoms of a cold or the flu. Keep your environment free from any known allergens such as dust, mold, pets, and pollen. General instructions Get plenty of rest. Drink enough fluids to keep your urine pale yellow. Use oxygen therapy at home as directed. ?Follow instructions from your health care provider about how to use oxygen safely and take steps to prevent fire. ?Do not smoke while using oxygen or allow others to smoke in your home. Keep all follow-up visits. This is important. Contact a health care provider if: Your shortness of breath or coughing gets worse even when you take medicine. Your mucus gets thicker or changes color. You are not able to cough up your mucus. You have a fever. Get help right away if: You cough up blood. You have trouble breathing. You have chest pain. You feel dizzy or confused. These symptoms may represent a serious problem that is an emergency. Do not wait to see if the symptoms will go away. Get medical help right away. Call your local emergency services (911 in the [place] Do not drive yourself to the hospital. Summary Chronic bronchitis is inflammation inside of the main airways (bronchi) that come off the windpipe (trachea) in the lungs. The swelling causes the airways to narrow and make more mucus than normal. Chronic bronchitis is a long-term (chronic) condition. It is defined as a chronic cough with mucus (sputum) production for at least 3 months of the year for 2 years in a row. If you were prescribed an antibiotic medicine, take it as told by your health care provider. Do not stop taking the antibiotic even if you start to feel better. Do not use any products that contain nicotine or tobacco. These products include cigarettes, chewing tobacco, and vaping devices, such as e-cigarettes. If you need help quitting, ask your health care provider. This information is not intended to replace advice given to you by your health care provider. Make sure you discuss any questions you have with your health care provider. Document Revised: 12/14/2021 Document Reviewed: 12/14/2021 [employer] Patient Education 2022 Storyful. Follow Up Care 05/09/2023 09:59:19 With:MIKALA WINTER CNP, FAM Address: [address] [place] [address]- [facility] (1) When:3 months Comments:COPD [facility] 05-09-2023 Hospital Discharge instructions Patient Education 05/09/2023 08:17:08 Chronic Obstructive Pulmonary Disease Exacerbation, Yqki-wo-Xosa Chronic Obstructive Pulmonary Disease Exacerbation Chronic obstructive pulmonary disease (COPD) is a long-term (chronic) lung problem. In COPD, the flow of air from the lungs is limited. COPD exacerbations are times that breathing gets worse and you need more than your normal treatment. Without treatment, they can be life-threatening. If they happen often, your lungs can become more damaged. What are the causes? Having infections that affect your airways and lungs. Being exposed to: ?Smoke. ?Air pollution. ?Chemical fumes. ?Dust. ?Things that can cause an allergic reaction (allergens). Not taking your usual COPD medicines as told. Having medical problems already, such as heart failure or infections not involving the lungs. In many cases, the cause is not known. What increases the risk? Smoking. Being an older adult. Having frequent prior COPD exacerbations. What are the signs or symptoms? Increased coughing. Increased mucus from your lungs. Increased wheezing. Increased shortness of breath. Fast breathing and finding it hard to breathe. Chest tightness. Less energy than usual. Sleep disruption from symptoms. Confusion. Increased sleepiness. Often, these symptoms happen or get worse even with the use of medicines. How is this treated? Treatment for this condition depends on how bad it is and the cause of the symptoms. You may need to stay in the hospital for treatment. Treatment may include: Taking medicines. Using oxygen. Being treated with different ways to clear your airway, such as using a mask to deliver oxygen. Follow these instructions at home: Medicines Take wzpo-dzz-pfjdqul and prescription medicines only as told by your doctor. Use all inhaled medicines the correct way. If you were prescribed an antibiotic or steroid medicine, take it as told by your doctor. Do not stop taking it even if you start to feel better. Lifestyle Do not smoke or use any products that contain nicotine or tobacco. If you need help quitting, ask your doctor. Eat healthy foods. Exercise regularly. Get enough sleep. Most adults need 7 or more hours per night. Avoid tobacco smoke and other things that can bother your lungs. Several times a day, wash your hands with soap and water for at least 20 seconds. If you cannot use soap and water, use hand cae engineer. This may help keep you from getting an infection. During flu season, avoid areas that are crowded with people. General instructions Drink enough fluid to keep your pee (urine) pale yellow. Do not do this if your doctor has told you not to. Use a cool mist machine (vaporizer). If you use oxygen or a machine that turns medicine into a mist (nebulizer), continue to use it as told. Keep all follow-up visits. How is this prevented? Keep up with shots (vaccinations) as told by your doctor. Be sure to get a yearly flu (influenza) shot. If you smoke, quit smoking. Smoking makes the problem worse. Follow all instructions for rehabilitation. These are steps you can take to make your body work better. Work with your doctor to develop and follow an action plan. This tells you what steps to take when you experience certain symptoms. Contact a doctor if: Your COPD symptoms get worse than normal. Get help right away if: You are short of breath and it gets worse, even when you are resting. You have trouble talking. You have chest pain. You cough up blood. You have a fever. You keep vomiting. You feel weak or you pass out (faint). You feel confused. You are not able to sleep because of your symptoms. You have trouble doing daily activities. These symptoms may be an emergency. Get help right away. Call your local emergency services (911 in the [place] Do not wait to see if the symptoms will go away. Do not drive yourself to the hospital. Summary COPD exacerbations are times that breathing gets worse and you need more treatment than normal. COPD exacerbations can be very serious and may cause your lungs to become more damaged. Do not smoke. If you need help quitting, ask your doctor. Stay up to date on your shots. Get a flu shot every year. This information is not intended to replace advice given to you by your health care provider. Make sure you discuss any questions you have with your health care provider. Document Revised: 07/06/2021 Document Reviewed: 06/21/2021 [employer] Patient Education 2022 [employer]. [facility] 05-04-2023 Hospital Discharge instructions Patient Education 05/04/2023 13:06:00 Acute Bronchitis, Adult Acute Bronchitis, Adult Acute bronchitis is sudden inflammation of the main airways (bronchi) that come off the windpipe (trachea) in the lungs. The swelling causes the airways to get smaller and make more mucus than normal. This can make it hard to breathe and can cause coughing or noisy breathing (wheezing). Acute bronchitis may last several weeks. The cough may last longer. Allergies, asthma, and exposure to smoke may make the condition worse. What are the causes? This condition can be caused by germs and by substances that irritate the lungs, including: Cold and flu viruses. The most common cause of this condition is the virus that causes the common cold. Bacteria. This is less common. Breathing in substances that irritate the lungs, including: ?Smoke from cigarettes and other forms of tobacco. ?Dust and pollen. ?Fumes from household cleaning products, gases, or burned fuel. ?Indoor or outdoor air pollution. What increases the risk? The following factors may make you more likely to develop this condition: A weak body's defense system, also called the immune system. A condition that affects your lungs and breathing, such as asthma. What are the signs or symptoms? Common symptoms of this condition include: Coughing. This may bring up clear, yellow, or green mucus from your lungs (sputum). Wheezing. Runny or stuffy nose. Having too much mucus in your lungs (chest congestion). Shortness of breath. Aches and pains, including sore throat or chest. How is this diagnosed? This condition is usually diagnosed based on: Your symptoms and medical history. A physical exam. You may also have other tests, including tests to rule out other conditions, such as pneumonia. These tests include: A test of lung function. Test of a mucus sample to look for the presence of bacteria. Tests to check the oxygen level in your blood. Blood tests. Chest X-ray. How is this treated? Most cases of acute bronchitis clear up over time without treatment. Your health care provider may recommend: Drinking more fluids to help thin your mucus so it is easier to cough up. Taking inhaled medicine (inhaler) to improve air flow in and out of your lungs. Using a vaporizer or a humidifier. These are machines that add water to the air to help you breathe better. Taking a medicine that thins mucus and clears congestion (expectorant). Taking a medicine that prevents or stops coughing (cough suppressant). It is notcommon to take an antibiotic medicine for this condition. Follow these instructions at home: Take kche-hoj-yvkxldr and prescription medicines only as told by your health care provider. Use an inhaler, vaporizer, or humidifier as told by your health care provider. Take two teaspoons (10 mL) of honey at bedtime to lessen coughing at night. Drink enough fluid to keep your urine pale yellow. Do not use any products that contain nicotine or tobacco. These products include cigarettes, chewing tobacco, and vaping devices, such as e-cigarettes. If you need help quitting, ask your health care provider. Get plenty of rest. Return to your normal activities as told by your health care provider. Ask your health care provider what activities are safe for you. Keep all follow-up visits. This is important. How is this prevented? To lower your risk of getting this condition again: Wash your hands often with soap and water for at least 20 seconds. If soap and water are not available, use hand cae engineer. Avoid contact with people who have cold symptoms. Try not to touch your mouth, nose, or eyes with your hands. Avoid breathing in smoke or chemical fumes. Breathing smoke or chemical fumes will make your condition worse. Get the flu shot every year. Contact a health care provider if: Your symptoms do not improve after 2 weeks. You have trouble coughing up the mucus. Your cough keeps you awake at night. You have a fever. Get help right away if you: Cough up blood. Feel pain in your chest. Have severe shortness of breath. Faint or keep feeling like you are going to faint. Have a severe headache. Have a fever or chills that get worse. These symptoms may represent a serious problem that is an emergency. Do not wait to see if the symptoms will go away. Get medical help right away. Call your local emergency services (911 in the [place] Do not drive yourself to the hospital. Summary Acute bronchitis is inflammation of the main airways (bronchi) that come off the windpipe (trachea) in the lungs. The swelling causes the airways to get smaller and make more mucus than normal. Drinking more fluids can help thin your mucus so it is easier to cough up. Take hbbm-pjc-uzuinkg and prescription medicines only as told by your health care provider. Do not use any products that contain nicotine or tobacco. These products include cigarettes, chewing tobacco, and vaping devices, such as e-cigarettes. If you need help quitting, ask your health care provider. Contact a health care provider if your symptoms do not improve after 2 weeks. This information is not intended to replace advice given to you by your health care provider. Make sure you discuss any questions you have with your health care provider. Document Revised: 12/14/2021 Document Reviewed: 12/14/2021 [employer] Patient Education 2022 [employer]. 05/04/2023 13:05:59 How to Use a Nebulizer, Adult How to Use a Nebulizer, Adult A nebulizer is a device that turns liquid medicine into a mist or vapor that you can breathe in (inhale). This medicine helps to open the air passages in your lungs. You may need to use a nebulizer if you have an acute breathing illness, such as pneumonia. A nebulizer may also be used to treat chronic conditions, such as asthma or chronic obstructive pulmonarydisease (COPD). There are different kinds of nebulizers. With some nebulizers, you breathe in medicine through a mouthpiece. With others, you get medicine through a mask that fits over your nose and mouth. What are the risks? If you use a nebulizer that does not fit right or is not cleaned properly, it can cause some problems, including: Infection. Eye irritation. Delivery of too much medicine or not enough medicine. Mouth irritation. Supplies needed: Air compressor (nebulizer machine). Nebulizer medicine cup (reservoir)and tubing. Mouthpiece or face mask. Soap and water. Sterile or distilled water. Clean towel. How to use a nebulizer Preparing a nebulizer Take these steps before using your nebulizer: 1.Read the special education curriculum specialist's instructions for your nebulizer, as machines vary. 2.Check your medicine. Make sure it has not and is not damaged in any way. 3.Wash your hands with soap and water. 4.Put all of the parts of your nebulizer on a sturdy, flat surface. 5.Connect the tubing to the nebulizer machine and to the reservoir. 6.Measure the liquid medicine according to instructions from your health care provider. Pour the liquid into the reservoir. 7.Attach the mouthpiece or mask. 8.Test the nebulizer by turning it on to make sure that a spray comes out. Then, turn it off. Using a nebulizer Be sure to stop the machine at any time if you start coughing or if the medicine foams or bubbles. 1.Sit in an upright, relaxed position. 2.If your nebulizer has a mask, put it over your nose and mouth. It should fit somewhat snugly, with no gaps around the nose or cheeks where medicine could escape. If you use a mouthpiece, put it in your mouth. Press your lips firmly around the mouthpiece. 3.Turn on the nebulizer. 4.Some nebulizers have a finger valve. If yours does, cover up the air hole so the air gets to the nebulizer. 5.Once the medicine begins to mist out, take slow, deep breaths. If there is a finger valve, release it at the end of your breath. 6.Continue taking slow, deep breaths until the medicine in the nebulizer is gone and no mist appears. Cleaning a nebulizer The nebulizer and all of its parts must be kept very clean. If the nebulizer and its parts are not cleaned properly, bacteria can grow inside of them. If you inhale the bacteria, you can get sick. Follow the special education curriculum specialist's instructions for cleaning your nebulizer. For most nebulizers, you should follow these guidelines: Clean the mouthpiece or mask and the reservoir by: ?Rinsing them after each use. Use sterile or distilled water. ?Washing them 1 2 times a week using soap and warm water. Do not wash the tubing. After you rinse or wash them, place the parts on a clean towel and let them air-dry completely. After they dry, reconnect the pieces and turn the nebulizer on without any medicine in it. Doing this will blow air through the equipment to help dry it out. Store the nebulizer in a clean and dust-free place. Check the filter at least one time every week. Replace the filter if it looks dirty. Follow these instructions at home Use your nebulizer only as told by your health care provider. Do not use the nebulizer more than directed by your health care provider. Do not use any products that contain nicotine or tobacco, such as cigarettes, e-cigarettes, and chewing tobacco. If you need help quitting, ask your health care provider. Keep all follow-up visits as told by your health care provider. This is important. Where to find more information [employer]: allergyasthmanetwork.org [place] [employer]: www.lung.org Contact a health care provider if: You have trouble using the nebulizer. Your nebulizer foams or stops working. Your nebulizer does not create a mist after you add medicine and turn it on. Get help right away if: You continue to have trouble breathing. Your breathing gets worse during a nebulizer treatment. These symptoms may represent a serious problem that is an emergency. Do not wait to see if the symptoms will go away. Get medical help right away. Call your local emergency services (911 in the [place] Do not drive yourself to the hospital. Summary A nebulizer is a device that turns liquid medicine into a mist (vapor) that you can breathe in (inhale). Measure the liquid medicine according to instructions from your health care provider. Pour the liquid into the part of the nebulizer that holds the medicine (reservoir). Once the medicine begins to mist out, take slow, deep breaths. Rinse or wash the mouthpiece or mask and the reservoir after each use, and allow them to air-dry completely. This information is not intended to replace advice given to you by your health care provider. Make sure you discuss any questions you have with your health care provider. Document Revised: 04/25/2021 Document Reviewed: 09/22/2020 [employer] Patient Education 2022 [employer]. 05/04/2023 13:05:57 How to Use a Metered Dose Inhaler How to Use a Metered Dose Inhaler A metered dose inhaler (MDI) is a handheld device filled with medicine that must be breathed into the lungs (inhaled). The medicine is delivered by pushing down on a metal canister. This releases a preset amount of spray and mist through the mouth and into the lungs. Each MDI canister holds a certain number of doses (puffs). Using a spacer with a metered dose inhaler may be recommended to help get more medicine into the lungs. A spacer is a plastic tube that connects to the MDI on one end and has a mouthpiece on the other end. A spacer holds the medicine in the tube for a short time. This allows more medicine to be inhaled. The MDI can be used to deliver many kinds of inhaled medicines, including: Quick relief or rescue medicines, such as bronchodilators. Controller medicines, such as corticosteroids. What are the risks? If you do not use your inhaler correctly, medicine might not reach your lungs to help you breathe. If you do not have enough strength to push down the canister to make it spray, ask your health care provider for ways to help. The medicine in the MDI may cause side effects, such as: ?Mouth sores (thrush). ?Cough. ?Hoarseness. ?Shakiness. ?Headache. Supplies needed: A metered dose inhaler. A spacer, if recommended. How to use a metered dose inhaler without a spacer 1.Remove the cap from the inhaler. 2.If you are using the inhaler for the first time, shake it for 5 seconds, turn it away from your face, then release 4 puffs into the air. This is called priming. 3.Shake the inhaler for 5 seconds. 4.Position the inhaler so the top of the canister faces up. 5.Put your index finger on the top of the medicine canister. Support the bottom of the inhaler with your thumb. 6.Breathe out normally and as completely as possible, away from the inhaler. 7.Either place the inhaler between your teeth and close your lips tightly around the mouthpiece, or hold the inhaler 1 2 inches (2.5 5 cm) away from your open mouth. Keep your tongue down out of the way. If you are unsure which technique to use, ask your health care provider. 8.Press the canister down with your index finger to release the medicine. Inhale deeply and slowly through your mouth until your lungs are completely filled. Do not breathe in through your nose. Inhaling should take 4 6 seconds. 9.Hold the medicine in your lungs for 5 10 seconds (10 seconds is best). This helps the medicine get into the small airways of your lungs. 10.Remove the inhaler from your mouth, turn your head, and breathe out normally. 11.Wait about 1 minute between puffs or as directed. Then repeat steps 3 10 until you have taken the number of puffs that your health care provider directed. 12.Put the cap on the inhaler. 13.If you are using a steroid inhaler, rinse your mouth with water, gargle, and spit out the water. Do not swallow the water. How to use a metered dose inhaler with a spacer 1.Remove the cap from the inhaler. 2.If you are using the inhaler for the first time, shake it for 5 seconds, turn it away from your face, then release 4 puffs into the air. This is called priming. 3.Shake the inhaler for [address] the open end of the spacer onto the inhaler mouthpiece. 5.Position the inhaler so the top of the canister faces up and the spacer mouthpiece faces you. 6.Put your index finger on the top of the medicine canister. Support the bottom of the inhaler and the spacer with your thumb. 7.Breathe out normally and as completely as possible, away from the spacer. 8.Place the spacer between your teeth and close your lips tightly around it. Keep your tongue down out of the way. 9.Press the canister down with your index finger to release the medicine, then inhale deeply and slowly through your mouth until your lungs are completely filled. Do not breathe in through your nose. Inhaling should take 4 6 seconds. 10.Hold the medicine in your lungs for 5 10 seconds (10 seconds is best). This helps the medicine get into the small airways of your lungs. 11.Remove the spacer from your mouth, turn your head, and breathe out normally. 12.Wait about 1 minute between puffs or as directed. Then repeat steps 3 11 until you have taken the number of puffs that your health care provider directed. 13.Remove the spacer from the inhaler and put the cap on the inhaler. 14.If you are using a steroid inhaler, rinse your mouth with water, gargle, and spit out the water. Do not swallow the water. Follow these instructions at home: Caring for your MDI Store your inhaler at or near room temperature. A cold MDI will not work properly. Follow directions on the package insert for care and cleaning of your MDI and spacer. General instructions Take your inhaled medicine only as told by your health care provider. Do not use the inhaler more than directed by your health care provider. Refill your MDI with medicine before all the preset doses have been used. ?If your inhaler has a counter, check it to determine how full your MDI is. The number you see tells you how many doses are left. ?If your inhaler does not have a counter, ask your health care provider when you will need to refill it. Then write the refill date on a calendar or on your MDI canister. ?Keep in mind that you cannot tell when the medicine in an inhaler is empty by shaking it. You may feel or hear something in the canister even when the preset medicine doses have been used up. Keeping track of your dosages is important. Do not use any products that contain nicotine or tobacco, such as cigarettes, e-cigarettes, and chewing tobacco. If you need help quitting, ask your health care provider. Keep all follow-up visits as told by your health care provider. This is important. Where to find more information Centers for Disease Control and Prevention: www.cdc.gov [place] [employer]: www.lung.org Contact a health care provider if: Symptoms are only partially relieved with your inhaler. You are having trouble using your inhaler. You have side effects from the medicine. You have chills or a fever. You have night sweats. There is blood in your thick saliva (phlegm). Get help right away if: You have dizziness. You have a fast heart rate. You have severe shortness of breath. You have difficulty breathing. These symptoms may represent a serious problem that is an emergency. Do not wait to see if the symptoms will go away. Get medical help right away. Call your local emergency services (911 in the [place] Do not drive yourself to the hospital. Summary A metered dose inhaler is a handheld device for taking medicine that must be breathed into the lungs (inhaled). Take your inhaled medicine only as told by your health care provider. Do not use the inhaler more than directed by your health care provider. You cannot tell when the medicine is gone in an inhaler by shaking it. Refill it with medicine before all the preset doses have been used. Follow directions on the package insert for care and cleaning of your MDI and spacer. This information is not intended to replace advice given to you by your health care provider. Make sure you discuss any questions you have with your health care provider. Document Revised: 09/28/2020 Document Reviewed: 09/28/2020 [employer] Patient Education 2022 [employer]. 05/04/2023 13:05:57 Cough, Adult, Uloq-ha-Ayxe Cough, Adult A cough helps to clear your throat and lungs. A cough may be a sign of an illness or another medical condition. An acute cough may only last 2 3 weeks, while a chronic cough may last 8 or more weeks. Many things can cause a cough. They include: Germs (viruses or bacteria) that attack the airway. Breathing in things that bother (irritate) your lungs. Allergies. Asthma. Mucus that runs down the back of your throat (postnasal drip). Smoking. Acid backing up from the stomach into the tube that moves food from the mouth to the stomach (gastroesophageal reflux). Some medicines. Lung problems. Other medical conditions, such as heart failure or a blood clot in the lung (pulmonary embolism). Follow these instructions at home: Medicines Take fqsj-zyn-dfrqfwe and prescription medicines only as told by your doctor. Talk with your doctor before you take medicines that stop a cough (cough suppressants). Lifestyle Do not smoke, and try not to be around smoke. Do not use any products that contain nicotine or tobacco, such as cigarettes, e-cigarettes, and chewing tobacco. If you need help quitting, ask your doctor. Drink enough fluid to keep your pee (urine) pale yellow. Avoid caffeine. Do not drink alcohol if your doctor tells you not to drink. General instructions Watch for any changes in your cough. Tell your doctor about them. Always cover your mouth when you cough. Stay away from things that make you cough, such as perfume, candles, campfire smoke, or cleaning products. If the air is dry, use a cool mist vaporizer or humidifier in your home. If your cough is worse at night, try using extra pillows to raise your head up higher while you sleep. Rest as needed. Keep all follow-up visits as told by your doctor. This is important. Contact a doctor if: You have new symptoms. You cough up pus. Your cough does not get better after 2 3 weeks, or your cough gets worse. Cough medicine does not help your cough and you are not sleeping well. You have pain that gets worse or pain that is not helped with medicine. You have a fever. You are losing weight and you do not know why. You have night sweats. Get help right away if: You cough up blood. You have trouble breathing. Your heartbeat is very fast. These symptoms may be an emergency. Do not wait to see if the symptoms will go away. Get medical help right away. Call your local emergency services (911 in the [place] Do not drive yourself to the hospital. Summary A cough helps to clear your throat and lungs. Many things can cause a cough. Take mmay-vdf-zulemzp and prescription medicines only as told by your doctor. Always cover your mouth when you cough. Contact a doctor if you have new symptoms or you have a cough that does not get better or gets worse. This information is not intended to replace advice given to you by your health care provider. Make sure you discuss any questions you have with your health care provider. Document Revised: 10/01/2020 Document Reviewed: 09/01/2019 [employer] Patient Education 2022 [employer]. 05/04/2023 13:05:55 BMI for Adults BMI for Adults What is BMI? Body mass index (BMI) is a number that is calculated from a person's weight and height. BMI can help estimate how much of a person's weight is composed of fat. BMI does not measure body fat directly. Rather, it is an alternative to procedures that directly measure body fat, which can be difficult and expensive. BMI can help identify people who may be at higher risk for certain medical problems. What are BMI measurements used for? BMI is used as a screening tool to identify possible weight problems. It helps determine whether a person is obese, overweight, a healthy weight, or underweight. BMI is useful for: Identifying a weight problem that may be related to a medical condition or may increase the risk for medical problems. Promoting changes, such as changes in diet and exercise, to help reach a healthy weight. BMI screening can be repeated to see if these changes are working. How is BMI calculated? BMI involves measuring your weight in relation to your height. Both height and weight are measured, and the BMI is calculated from those numbers. This can be done either in [place] or metric measurements. Note that charts and online BMI calculators are available to help you find your BMI quickly and easily without having to do these calculations yourself. To calculate your BMI in [place] measurements: 1.Measure your weight in pounds (lb). 2.Multiply the number of pounds by 703. For example, for a person who weighs 180 lb, multiply that number by 703, which equals 126,540. 3.Measure your height in inches. Then multiply that number by itself to get a measurement called inches squared. For example, for a person who is 70 inches tall, the inches squared measurement is 70 inches x 70 inches, which equals 4,900 inches squared. 4.Divide the total from step 2 (number of lb x 703) by the total from step 3 (inches squared): 126,540 4,900 = 25.8. This is your BMI. To calculate your BMI in metric measurements: 1.Measure your weight in kilograms (kg). 2.Measure your height in meters (m). Then multiply that number by itself to get a measurement called meters squared. For example, for a person who is 1.75 m tall, the meters squared measurement is 1.75 m x 1.75 m, which is equal to 3.1 meters squared. 3.Divide the number of kilograms (your weight) by the meters squared number. In this example: 70 3.1 = 22.6. This is your BMI. What do the results mean? BMI charts are used to identify whether you are underweight, normal weight, overweight, or obese. The following guidelines will be used: Underweight: BMI less than 18.5. Normal weight: BMI between 18.5 and 24.9. Overweight: BMI between 25 and 29.9. Obese: BMI of 30 or above. Keep these notes in mind: Weight includes both fat and muscle, so someone with a muscular build, such as an athlete, may have a BMI that is higher than 24.9. In cases like these, BMI is not an accurate measure of body fat. To determine if excess body fat is the cause of a BMI of 25 or higher, further assessments may need to be done by a health care provider. BMI is usually interpreted in the same way for men and women. Where to find more information For more information about BMI, including tools to quickly calculate your BMI, go to these websites: Centers for Disease Control and Prevention: www.cdc.gov [place] [employer]: www.heart.org National Heart, Lung, and Blood [place]: www.nhlbi.nih.gov Summary Body mass index (BMI) is a number that is calculated from a person's weight and height. BMI may help estimate how much of a person's weight is composed of fat. BMI can help identify those who may be at higher risk for certain medical problems. BMI can be measured using [place] measurements or metric measurements. BMI charts are used to identify whether you are underweight, normal weight, overweight, or obese. This information is not intended to replace advice given to you by your health care provider. Make sure you discuss any questions you have with your health care provider. Document Revised: 05/05/2020 Document Reviewed: 03/12/2020 [employer] Patient Education 2022 [employer] Follow Up Care 05/04/2023 11:37:55 With:Yaniv MARRUFO DO, MAXIOM Address: [address] [place] [address]- When: Unknown [facility] 07-11-2021 Hospital Discharge instructions Follow Up Care 07/11/2021 08:28:25 With:Yaniv MARRUFO DO, FAM Address: [address] [place] [id number]- When:Within 1 Year(s) With:Yaniv MARRUFO DO, FAM Address: [address] [place] [id number]- When:Within 1 Year(s) [facility] Evaluation + Plan note Future Appointments Appointment Date:07/11/2023 08:00:00 AM Scheduled Provider:Yaniv MARRUFO DO Location:[facility] Appointment Type: Open Future Scheduled [id number] 07/11/22CBC w/ Auto Diff 07/11/22Comprehensive Metabolic Panel 07/11/22Lipid Panel 07/11/22 [facility] Evaluation + Plan note Future Appointments Appointment Date:05/16/2023 08:20:00 AM Scheduled Provider:MIKALA WINTER CNP Location:[facility] Appointment Type: Open Appointment Date:07/11/2023 08:00:00 AM Scheduled Provider:Yaniv MARRUFO DO Location:[facility] Appointment Type: Open Future Scheduled [id number] 07/11/22CBC w/ Auto Diff 07/11/22Comprehensive Metabolic Panel 07/11/22Lipid Panel 07/11/22 [facility] Evaluation + Plan note Future Appointments Appointment Date:05/18/2023 10:15:00 AM Scheduled Provider:Rosabla Marie MD [facility] Type:Pulmonary New Patient (FT) Appointment Date:08/16/2023 08:00:00 AM Scheduled Provider:MIKALA WINTER CNP Location:[facility] Appointment Type:FM Open Future Scheduled [id number] 07/11/22CBC w/ Auto Diff 07/11/22Comprehensive Metabolic Panel 07/11/22Lipid Panel 07/11/22 [facility] [place] Evaluation + Plan note Future Appointments Appointment Date:05/30/2023 10:30:00 AM Scheduled Provider: [facility] Type:PUL Pulmonary Function Test (FT) Appointment Date:08/16/2023 08:00:00 AM Scheduled Provider:MIKALA WINTER CNP Location:[facility] Appointment Type: Open Future Scheduled [id number] 07/11/22CBC w/ Auto Diff 07/11/22Comprehensive Metabolic Panel 07/11/22Lipid Panel 07/11/22 [facility] Evaluation + Plan note Future Appointments Appointment Date:06/04/2023 07:30:00 AM Scheduled Provider: [facility] Type:PUL Pulmonary Function Test (FT) Appointment Date:06/04/2023 08:30:00 AM Scheduled Provider: [facility] Type:PUL O2 Desat Study (FT) Appointment Date:08/16/2023 08:00:00 AM Scheduled Provider:MIKALA WINTER CNP Location:[facility] Appointment Type: Open Future Scheduled [id number] 07/11/22CBC w/ Auto Diff 07/11/22Comprehensive Metabolic Panel 07/11/22Lipid Panel 07/11/22 [facility] Evaluation + Plan note Future Appointments Appointment Date:06/27/2023 09:30:00 AM Scheduled Provider:Rosalba Marie MD Location[facility] Appointment Type:Pulmonary Follow Up (FT) Appointment Date:07/04/2023 08:00:00 AM Scheduled Provider:MIKALA WINTER CNP Location:[facility] Appointment Type:FM Open Appointment Date:08/16/2023 08:00:00 AM Scheduled Provider:MIKALA WINTER CNP Location:[facility] Appointment Type: Open Future Scheduled [id number] 07/11/22CBC w/ Auto Diff 07/11/22Comprehensive Metabolic Panel 07/11/22Lipid Panel 07/11/22 [facility] Evaluation + Plan note Future Appointments Appointment Date:07/04/2023 08:00:00 AM Scheduled Provider:MIKALA WINTER CNP Location:[facility] Appointment Type:FM Open Appointment Date:08/16/2023 08:00:00 AM Scheduled Provider:MIKALA WINTER CNP Location:[facility] Appointment Type:FM Open Appointment Date:09/10/2023 10:15:00 AM Scheduled Provider:Rosalba Marie MD Location:[facility] Appointment Type:Pulmonary Follow Up (FT) Future Scheduled [id number] 07/11/22CBC w/ Auto Diff 07/11/22Comprehensive Metabolic Panel 07/11/22Lipid Panel 07/11/22 [facility] Evaluation + Plan note Future Appointments Appointment Date:08/16/2023 08:00:00 AM Scheduled Provider:MIKALA WINTER CNP Location:[facility] Appointment Type:FM Open Appointment Date:09/10/2023 10:15:00 AM Scheduled Provider:Rosalba Marie MD Location:[facility]ulmonary Clinic Appointment Type:Pulmonary Follow Up (FT) [facility] Care Evaluation + Plan note Future Appointments Appointment Date:09/10/2023 10:15:00 AM Scheduled Provider:Rosalba Marie MD Location:[facility] Appointment Type:Pulmonary Follow Up (FT) [facility] Hospital course Narrative No data available for this section [facility] Hospital Discharge instructions No data available for this section [facility] Progress note No data available for this section [facility] Summary Purpose Family History No Family History Records Found Advance Directives No Advanced Directives Records Found Additional Source Comments Patient Care team informatio n (unrecognized section and content) Personnel Name: Yaniv MARRUFO DO Address: Address: [address] [place] [address] [place] [address] Name: Lashaun ALVAREZN, Danae Personnel Name: NIRU QUEEN Yaniv Potter Address: Address: [address] [place] [address] [place] [address]- [place] Name: Erickdaradha OVALLE, Danae Personnel Name: MIKALA WINTER CNP A Address: Address: [address] [place] [id number]- [place] Name: Lashaun OVALLE, Danae Personnel Name: MIKALA WINTER CNP A Address: Address: [address] [address]- [place] Name: Erickdarin YAMILE Danae Personnel Name: MIKALA WINTER CNP A Address: Address: [address] [address]- [place] Name: Erickdarin YAMILE, Danae Personnel Name: MIKALA WINTER CNP A Address: Address: [address] [place] [id number]- [place] Name: Erickdarin YAMILE Danae Personnel Name: MIKALA WINTER CNP A Address: Address: [address] [place] [id number]- [place] Name: Erickdarin YAMILE Danae Personnel Name: MIKALA WINTER CNP A Address: Address: [address] [place] [id number]- [place] Name: Erickdarin YAMILE, Danae Personnel Name: MIKALA WINTER CNP A Address: Address: [address] [place] [id number]- [place] Name: Erickdarin YAMILE Danae Personnel Name: MIKALA WINTER CNP A Address: Address: [address] [place] [id number]- [place] Name: Lashaun OVALLE Danae Personnel Name: MIKALA WINTER CNP A Address: Address: [address] [place] [id number]- [place] Name: Erickdarin YAMILE Danae INFORMATION SOURCE (unrecogn ized section and content) DATE CREATED AUTHOR 08/29/2023 [facility] FOR RECORDS PERTAINING TO PATIENTS WHO ARE OR HAVE BEEN ENROLLED IN A CHEMICAL DEPENDENCY/SUBSTANCEABUSE PROGRAM, SOME INFORMATION MAY BE OMITTED. This clinical summary was aggregated from multiple sources. Caution should be exercised in using it in the provision of clinical care. This summary normalizes information from multiple sources, and as a consequence, information in this document may materially change the coding, format and clinical context of patient data. In addition, data may be omitted in some cases. CLINICAL DECISIONS SHOULD BE BASED ON THE PRIMARY CLINICAL RECORDS. [facility] [facility]. provides no warranty or guarantee of the accuracy or completeness of information in this document.
[2023-09-21] MEDS: 0.9 % SODIUM CHLORIDE 500 ML, LIDOCAINE HCL 20 ML, SODIUM BICARBONATE 10 MEQ INJ (11:01)
[2023-09-21] MEDS: LIDOCAINE HCL 1% 100 MG/10 ML MDV INJ (11:01)
== END 2023-09-21 07:50 | disposition home or self-care (01) ==
LOC: VC 07:49
PROVIDERS: PCP Radiology Diagnostic Radiology; Visit Provider Radiology Diagnostic Radiology
DX: I83.813 Varicose veins of bilateral lower extremities with pain (principal)
CPT/HCPCS: 36478

== ENCOUNTER 2023-09-28 08:23 | Outpatient (OUT) | payer MEDICARE, SELFPAY ==
--- NOTE | 2023-09-28 08:24 | VEIN_ITS ---
Patient Name: EDEN GRIDER MR#: [id number] : 1960 Exam Date: 09/28/2023 Ordering Doctor: DR GAUTAM GREHSAM M.D. RADIOLOGY REPORT PROCEDURE: VC EXT VENOUS RT LMTD COMPARISON: None. INDICATIONS: I80.01 Phlebitis of superficial veins of rt lower extremity TECHNIQUE: Lower extremity tilley scale and Duplex Doppler evaluation of the deep venous system from the inguinal ligament through the calf veins. FINDINGS: REGION: Right lower extremity. THROMBI: Negative for DVT. Heat induced thrombus in GSV mid thigh to distal lower leg. COMPRESSIBILITY: Non-compressible segments corresponding to thrombus FLOW: Areas of no flow corresponding to thrombus OTHER: CONCLUSION: 1. Successful post ablation occlusion of right great saphenous vein. Dictated by: Scooter Mitchell M.D. on 09/28/2023 at 12:31 Approved by: Scooter Mitchell M.D. on 09/28/2023 at 12:32
--- NOTE | 2023-09-28 08:24 | VEIN_ITS ---
Patient Name: EDEN GRIDER MR#: [id number] : 1960 Exam Date: 09/28/2023 Ordering Doctor: DR GAUTAM GRESHAM M.D. RADIOLOGY REPORT PROCEDURE: VC FACILITY EST LMTD VEIN CENTER - OFFICE VISIT FOLLOW UP COMPARISON: None. PROGRESS NOTES: The patient reports improvement in leg symptoms. There has been interval reduction in varicosities. The patient has followed our recommendations to walk 20-30 minutes once or twice per day since the procedure. Physical exam demonstrates decrease in varicosities of the leg. Persistent varicosities are identified along the legs bilaterally. Review of the ultrasound performed the same day demonstrates occlusive thrombus extending throughout the treated vein(s), see separate report, consistent with a successful ablation. No thrombus extending into or beyond the saphenofemoral junction. The patient expressed a desire to proceed with treatment of left great saphenous vein. The patient was informed that treatment was a process and would require several procedures/sessions. VEIN/ Facility EST LMTD IMPRESSION: 1. Successful ablation of the right great saphenous vein(s). 2. Persistent bilateral varicose veins and lower extremity symptoms. PLAN: Endovenous laser ablation of left great saphenous vein. Nurse notes, history and physical were reviewed and confirmed, see attached forms. The nurse was present throughout the physical exam and consultation Dictated by: Scooter Mitchell M.D. on 09/28/2023 at 12:32 Approved by: Scooter Mitchell M.D. on 09/28/2023 at 12:34
--- OUTSIDE RECORDS SUMMARY | 2023-09-28 08:25 | XMS_ITS | CCD ---
Author Name Unknown Address [address] [place] [address] Organization [facility] Care Team Providers Care Family Reunification Specialist Name Role Phone Yaniv MARRUFO Primary Care Physician Lashaun Danae Unavailable Unavailable MAGGY, MIKALA A Primary Care Physician MAGGY, MIKALA A Attending Unavailable MAGGY, MIKALA A Attending Unavailable MAGGY, MIKALA A Attending Unavailable MAGGY, MIKALA A Attending Unavailable MAGGY, MIKALA A Attending Unavailable Sterling, Bashar X Admitting Unavailable Sterling, Bashar X Referring Unavailable Sterling, Bashar X Attending Unavailable Sterling, Bashar X Admitting Unavailable Sterling, Bashar X Referring Unavailable Sterling, Bashar X Attending Unavailable MAGGY, MIKALA A Attending Unavailable MAGGY, MIKALA A Admitting Unavailable Steve Dickinson Attending Unavailable Charan Rivera Referring Unavailable Sterling, Bashar X Referring Unavailable Alfaro, Basem G. Attending Unavailable Sterling, Bashar X Attending Unavailable MAGGY, MIKALA A Referring Unavailable NONE, XXXX Referring Unavailable Sterling, Bashar X Attending Unavailable Charan Rivera Attending Unavailable Spasic, Gonsalo V. Attending Unavailabl e Allergies Allergy Classification Reported Allergen(s) Allergy Type Date of Onset Reaction(s) Facility (12 sources) [facility]; Translations: [Strawberries] Propensity to adverse reactions to substance Blotchy [facility] (1 source) No Known Medication Allergies; Translations: [No Known Medication Allergies] Propensity to adverse reactions (disorder) [facility] Repository NEGATED: Highlighted row has been ruled out! (1 source) Drug allergy [facility] NEGATED: Highlighted row has been ruled out! (1 source) Drug allergy [facility] NEGATED: Highlighted row has been ruled out! (1 source) Drug allergy [facility] NEGATED: Highlighted row has been ruled out! (1 source) Drug allergy [facility] Medications Current Medications Medication Drug Class(es) Dates Sig (Normalized) Sig (Original) Albuterol (Eqv-ProAir HFA) 90 mcg/inh inhalation aerosol (4 sources) Start: 06-21-2023 take 2 puff(s) by inhalation every six hours Albuterol (Eqv-ProAir HFA) 90 mcg/inh inhalation aerosol 2 puff(s), Inhalation, q6hr, 18 gm, Refill(s) 1, [facility], 167, cm, 06/21/23 11:26:00 EDT, Height/Length Dosing, 136, kg, 06/21/23 11:26:00 EDT, Weight Dosing Start Date: 06/21/23 Status: Ordered azithromycin 250 mg oral tablet (1 source) Macrolide Antimicrobial Start: 07-11-2022 End: 07-21-2022 azithromycin 250 mg Tab = 1 packet(s), Oral, As Directed, as directed on package labeling, X 5 day(s), # 6 tab(s), Refills(s) 1, Pharmacy: [facility], 167, cm, 07/11/22 8:07:00 EST, Height/Length Dosing, 126.3, kg, 07/11/22 8:07:00 EST, Weight Dosing Start Date: 07/11/22 Stop Date: 07/21/22 Status: Ordered azithromycin 250 mg Tab 5-day Dose Pack (Z-Austyn) (4 sources) Start: 06-21-2023 azithromycin 250 mg Tab 5-day Dose Pack (Z-Austyn) See Instructions, 1 tab(s) Oral, # 6 tab(s), Refills(s) 0, Pharmacy: [facility], 167, cm, 06/21/23 11:26:00 EDT, Height/Length Dosing, 136, kg, 06/21/23 11:26:00 EDT, Weight Dosing Start Date: 06/21/23 Status: Ordered Start: 05-04-2023 End: 05-09-2023 azithromycin 250 mg Tab 5-da y Dose Pack (Z-Austyn) = 1 packet(s), Oral, As Directed, as directed on package labeling, X 5 day(s), # 6 tab(s), Refills(s) 0, Pharmacy: [facility], 167, cm, 05/04/23 12:04:00 EDT, Height/Length [...] for 30 day(s), 1 EA, Refill(s) 11, [facility], 167, cm, 06/27/23 9:44:00 EDT, Height/Length [...] day(s), # 21 cap(s), Refills(s) 0, Pharmacy: [facility], 168, cm, 07/16/23 12:38:00 EST, Height/Length Dosing, 133.7, kg, 07/16/23 12:38:00 EST, Weight Dosing Start Date: 07/16/23 Stop Date: 07/23/23 Status: Ordered doxycycline hyclate 100 mg oral capsule (1 source) Tetracycline-class Drug Start: 08-16-2023 take 1 capsule by mouth twice daily doxycycline hyclate 100 mg Cap 100 mg = 1 cap(s), Oral, BID, # 20 cap(s), Refills(s) 0, Pharmacy: [facility], 168, cm, 08/16/23 8:09:00 EST, Height/Length Dosing, 130.5, kg, 08/16/23 8:09:00 EST, Weight Dosing Start Date: 08/16/23 Status: Ordered furosemide 40 mg oral tablet (3 sources) Loop Diuretic Start: 06-27-2023 End: 2024 take 1 tablet by mouth every other day Lasix 40 mg Tab 40 mg = 1 tab(s), Oral, Every other day, X 90 day(s), # 45 tab(s), Refills(s) 4, Pharmacy: [facility], 167, cm, 06/27/23 9:44:00 EDT, Height/Length [...] day(s), # 28 tab(s), Refills(s) 11, Pharmacy: [facility], 167, cm, 06/27/23 9:44:00 EDT, Height/Length Dosing, 135, kg, 06/27/23 9:44:00 EDT, Weight Dosing Start Date: 06/27/23 Stop Date: 05/28/24 Status: Ordered Symbicort 160/4.5 inhalation aerosol with adapter (8 sources) Start: 03-30-2023 take 2 puff(s) by inhalation twice daily Symbicort 160/4.5 inhalation aerosol with adapter 2 puff(s), Inhalation, BID, 3 EA, Refill(s) 4, [facility], 167, cm, 07/11/22 8:07:00 EST, Height/Length Dosing, 126.3, kg, 07/11/22 8:07:00 EST, Weight Dosing Start Date: 03/30/23 Status: Ordered Start: 07-11-2021 take 2 puff(s) by in halation twice daily Symbicort 160/4.5 inhalation aerosol with adapter 2 puff(s), Inhalation, BID, 3 EA, Refill(s) 3, [facility], 167, cm, 07/11/21 8:22:00 [...] needed for wheezing, 50 EA, Refill(s) 1, [facility], 167, cm, 06/21/23 11:26:00 EDT, Height/Length Dosing, 136, kg, 06/21/23 11:26:00 EDT, Weight Dosing Start Date: 06/21/23 Status: Ordered Start: 07-11-2021 take 50 doses by inh alation every four hours as needed albuterol 0.083% Inh Sandi 3 mL 0.083% - 3mL dosing units, Inhalation, q4hr as needed for wheezing, 50 EA, Refill(s) 1, [facility], 167, cm, 07/11/21 8:22:00 EST, Height/Length [...] days., # 30 tab(s), Refills(s) 0, Pharmacy: [facility], 167, cm, 06/27/23 9:44:00 EDT, Height/Length Dosing, 135, kg, 06/27/23 9:44:00 EDT, Weight Dosing Start Date: 06/27/23 Status: Ordered Start: 05-04-2023 End: 05-09-2023 take 1 tablet by mouth once daily predniSONE 50 mg Tab 50 mg = 1 tab(s), Oral, Daily, X 5 day(s), # 5 tab(s), Refills(s) 0, Pharmacy: [facility], 167, cm, 05/04/23 12:04:00 EDT, Height/Length [...] days., # 45 tab(s), Refills(s) 2, Pharmacy: [facility], 167, cm, 07/11/22 8:07:00 EST, Height/Length... [...] Results Test Name Value Interpretation Reference Range [facility] Medicine Office/Clini c Noteon 08-16-2023 Family Medicine [...] every 4 hours. Pap: DUE Trevor: DUE Malcolm: DUE Flu: UTD I have reviewed and [...] nails. She reports her daughter is a office equipment technician and told her she should this [...] BID, # 20 cap(s), Refills(s) 0, Pharmacy: [facility], 168, cm, 08/16/23 8:09:00 EST, Height/Length Dosing, 130.5, kg, 08/16/23 8:09:00 EST, Weight Dosing 3. BMI 45.0-49.9, adult (Z68.42: Body mass index [BMI] 45.0-49.9, adult) Monitor weight at each visit Encourage daily exercise as tolerated Encouraged portion control with meals 4. Non-smoker (Z78.9: Other specified health status) Stable Follow-up No qualifying data available Patient Education Chronic Obstructive Pulmonary Disease, Zmbr-oq-Aalw Problem List/Past Medical History Ongoing BMI 45.0-49.9, [...] 08/16/2023 Fa (more content not included)... Normal [facility] Comment on above: Result Comment: Shiva tronically [...] these instructions at home: Medicines ? Take ajoc-mqb-wzrjmky and prescription medicines only as told by [...] symptoms may repres (more content not included)... [facility] Consent for Procedure/Surger yon 07-24-2023 Consent for Procedure/Surgery [id number] 0#1.00TIFF [facility] Consent for Treatmenton 06-28 Consent for Treatment [id number] #1.00TIFF [facility] Consent to Photographon 06-28 Consent to Photograph [id number] 5#1.00TIFF [facility] Correspondence - Woundon Correspondence - Wound [id number] 9#1.00TIFF [facility] Correspondence - Wound [id number] 6#1.00TIFF [facility] Multi-Wound Charton 07-24-20 Multi-Wound Chart [id number] 4#1.00TIFF [facility] Nursing Assessment - Woundon 07-24-2023 Nursing Assessment - Wound [id number] 0#1.00TIFF [facility] Nursing Assessment - Wound [id number] 2#1.00TIFF [facility] Nursing Note - Woundon 07-24 Nursing Note - Wound [id number] 1 [id number] 5#1.00TIFF [facility] Physician Orderon 07-24-2023 Physician Order [id number] 8#1.00TIFF [facility] Progress Note - Woundon 06-28 Progress Note - Wound [id number] 31 [id number] 4#1.00TIFF [facility] Physician Referralon 023 Physician Referral [id number] #1.00TIFF [facility] Family Medicine Office/Clini c Noteon 07-16-2023 Family [...] with voice recognition software. Occasional wrong-word or ?rvfos-u-rehx? substitutions may have occurred due to the [...] This was also prescribed to her by putty worker who she is seeing for history of [...] She states she has tried most everything cwyv-afh-izifhqj which does not seem to help moisturize [...] difficulty ambulati (more content not included)... Normal [facility] Comment on above: Result Comment: Elec tronically [...] these instructions at home: Medicines ? Take rizx-twl-gphsnbm and prescription medicines only as told by [...] provider. Document Revised: 05/25/2022 Document Reviewed: 05/25/2022 [employer] Patient Education ? 2022 [employer]. Nutrition BMI for Adults What is BMI? [...] This can (more content not included)... Normal [facility] Physician Orderon 07-16-2023 Physician Order [id number] 5#1.00TIFF Normal [facility] Consent for Treatmenton Consent for Treatment [id number] #1.00TIFF Normal [facility] Heart and Vascular Office/Cl inic Noteon 06-27-2023 [...] for 30 day(s), 1 EA, Refill(s) 11, [facility], 167, cm, 06/27/23 9:44:00 EDT, Height/Length Dosing, 135, kg, 06/27/23 9:44:00 EDT, Weight Dosing roflumilast, 250 mcg = 1 tab(s), Oral, Daily, X 28 day(s), # 28 tab(s), Refills(s) 11, Pharmacy: [facility], 167, cm, 06/27/23 9:44:00 EDT, Height/Length Dosing, 135, kg, 06/27/23 9:44:00 EDT, Weight Dosing 2. Morbid obesity (E66.01: Morbid (severe) obesity due to excess calories) 3. Edema (R60.9: Edema, unspecified) I will start her on diuretics every other day Ordered: furosemide, 40 mg = 1 tab(s), Oral, Every other day, X 90 day(s), # 45 tab(s), Refills(s) 4, Pharmacy: [facility], 167, cm, 06/27/23 9:44:00 EDT, Height/Length Dosing, 135, kg, 06/27/23 9:44:00 EDT, Weight Dosing Orders: predniSONE, 10 mg = 1 tab(s), Oral, As Directed, Take 4 tabs for 3 days, 3 tabs for 3 days, 2 tabs for 3 days, 1 tab for 3 days., # 30 tab(s), Refills(s) 0, Pharmacy: [facility], 167, cm, 06/27/23 9:44:00 EDT, Height/Length [...] Refuses SARS- (more content not included)... Normal [facility] Comment on above: Result Comment: Elec tronically Signed By: Frank GAUTHIER, Rosalba Arthur\.br\Date and Time Signed: 06/27/23 11:46 EDT Physician Orderon 06-27-2023 Physician Order [id number] #1.00TIFF [facility] Family Medicine Office/Clini c Noteon 06-22-2023 Family [...] Her pulse ox is 93% today in [facility] office. She reports she completed a [...] unspecified) Reviewed PFT test completed by the putty worker Encouraged to f/u with pulmonology f/u in 3 months Ordered: albuterol, 2 puff(s), Inhalation, q6hr, 18 gm, Refill(s) 1, [facility] 167, cm, 06/21/23 11:26:00 EDT, Height/Length Dosing, 136, kg, 06/21/23 11:26:00 EDT, Weight Dosing azithromycin, See Instructions, 1 tab(s) Oral, # 6 tab(s), Refills(s) 0, Pharmacy: [facility], 167, cm, 06/21/23 11:26:00 EDT, Height/Length Dosing, 136, kg, 06/21/23 11:26:00 EDT, Weight Dosing 2. BMI 45.0-49.9, adult (Z68.42: Body mass index [BMI] 45.0-49.9, adult) 3. Morbid obesity (E66.01: Morbid (severe) obesity due to excess calories) Orders: albuterol, 0.083% - 3mL dosing units, Inhalation, q4hr as needed for wheezing, 50 EA, Refill(s) 1, [facility], 167, cm, 06/21/23 11:26:00 EDT, Height/Length Dosing, 136, kg, 06/21/23 11:26:00 EDT, Weight Dosing Total time spent preparing the chart, conducting of the encounter with the patient and family and time spent documenting, reviewing, and ordering tests was 30 minutes. Follow-up No qualifying data available Patient Education Chronic Obstructive Pulmonary Disease Exacerbation, Dxmk-vm-Bzpx Problem List/Past Medical History Ongoing Acute bronchitis [...] vax 11/13/19 (more content not included)... Normal [facility] Comment on above: Result Comment: Elec tronically [...] these instructions at home: Medicines ? Take ypnm-kcn-otmwkkx and prescription medicines only as told by [...] cannot use soap and water, use hand whanau support worker. This may help keep you from getting [...] provider. Document Revised: 07/06/2021 Document Reviewed: 06/21/2021 [employer] Patient Education ? 2022 [employer] Normal [facility] Pulmonary Function Studieson 06-06-2023 Pulmonary Function Studies [...] READ BY: Tia Alfaro M.D. Dictated: 06/06/2023 [id number] Transcribed: 06/06/2023 cc:Rosalba Marie M.D. [facility] Comment on above: Result Comment: Elec tronically Signed By: Dominic GAUTHIER, Tia GIsrael\.br\Date and Time Signed: 06/06/23 09:58 EDT Consent for Treatmenton Consent for Treatment [id number] #1.00TIFF [facility] Pulmonary Function Testson Pulmonary Function Tests [id number] 4#1.00TIFF [facility] Consent for Treatmenton Consent for Treatment [id number] #1.00CD:127 [facility] Consent for Treatment [id number] #1.00CD:127 [facility] Physician Orderon 05-29-2023 Physician Order [id number] #1.00CD:127 [facility] Insurance Correspondenceon Insurance Correspondence [id number] 2#1.00CD:127 [facility] Consent for Treatmenton 04-28 Consent for Treatment [id number] #1.00CD:127 [facility] Heart and Vascular Office/Cl inic Noteon 05-18-2023 [...] (COVID-19) mRNA BNT-162b2 vax 11/12/2020 Given Prophylaxis [facility] Comment on above: Result Comment: Elec tronically Signed By: Frank GAUTHIER, Rosalba Arthur\.br\Date and Time Signed: 05/18/23 14:43 EDT Physician Orderon 05-18-2023 Physician Order [id number] 1#1.00CD:127 [facility] Physician Order [id number] #1.00CD:127 [facility] Ambulatory Visit Summaryon 0 05-16-2023 Ambulatory Visit [...] AM EST With: Yaniv MARRUFO DO Where: [facility] Herminio Normal [facility] Family Medicine Office/Clini c Noteon 05-16-2023 Family [...] Mendoza, MAXIMO Within 3 months [address] [place] [address]- [facility] (1) Additional Instructions: COPD Patient Education Chronic [...] mRNA BNT-162b2 vax 11/12/2020 Given Prophylaxis Normal [facility] Comment on above: Result Comment: Elec tronically [...] these instructions at home: Medicines ? Take wbnz-jzu-zghhcpa and prescription medicines only as told by [...] and water are not available, use hand whanau support worker. ? Avoid contact with people who have [...] emergency s (more content not included)... Normal [facility] Clipboard Summaryon 05-10-20 Clipboard Summary {[id number]-89-[id number]-4h-d5-w3-am-ip-d9- cf-[id number]}CD:[id number] [facility] Consent for Treatmenton 04-27 Consent for Treatment [id number] #1.00CD:127 [facility] XR Chest 2 Viewson 3 XR Chest [...] effusion is evident. 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 No significant change is noted when compared to the prior exam. Ordering Provider: MIKALA WINTER FINAL REPORT Dictated: 05/10/2023 2:17 pm Oumar Robertson M.D. Signed (Electronic Signature): 05/10/2023 2:17 pm Signed by: Oumar Robertson M.D. Transcribed by: TINO Technologist: JAIMIE Technical Comments Radiation Dose: Ka,r in mGy = na DAP = na [facility] Ambulatory Visit Summaryon 0 05-09-2023 Ambulatory Visit [...] AM EDT With: MIKALA WINTER CNP Where: [facility] [address] [place] [address]-\.br\ Medications\.br\ What How Much When Instructions\.br\ Unchanged [...] instructions at home:\.br\ Medicines\.br\ ? \.br\ Take ecdn-pcq-sthpehh and prescription medicines only as told by [...] cannot use soap and water, use hand whanau support worker. This may help keep you from getting [...] Reviewed: 06/21/2021 Else[employer] Patient Education ? 2022 [employer].br\ \.br\ [facility] Clipboard Summaryon 05-09-20 Clipboard Summary {[id number]-db-[id number]-[id number]-60-[id number]-64- 37-7a-76}CD:[id number] [facility] Consent for Flu Vaccineon Consent for Flu Vaccine [id number]# 1.00CD:127 Normal [facility] Family Medicine Office/Clini c Noteon 05-09-2023 Family [...] EDT, Routine, Start date 05/09/23 10:00:00 EDT [facility] Internal Ambulatory Referral Nebulizer administration set A7003 Pulse Oximetry POC 81674 2. BMI 40.0-44.9, adult (Z68.41: Body mass index [BMI] 40.0-44.9, adult) Discussed diet & exercise Monitor at each visit. Ordered: [facility] Internal Ambulatory Referral 3. Immunization due (Z23: Encounter for immunization) Ordered: influenza virus vaccine, inactivated, 0.5 mL, Injection, IntraMuscular, Once, Stop date 05/09/23 11:00:00 EDT, Routine, Start date 05/09/23 11:00:00 EDT FIRST VACCINE w/o Machine Crater Admin Charge [id number] Negative depression screening (Z13.31: Encounter for screening for depression) Ordered: Depression Screening Negative 3352F Total time spent preparing the chart, conducting of the encounter with the patient and family and time spent documenting, reviewing, and ordering tests was 45 Follow-up No qualifying data available Patient Education Chronic Obstructive Pulmonary Disease Exacerbation, Ddhb-km-Pamd Problem List/Past Medical History Ongoing Acute bronchitis BMI 40.0-44.9, adult Chronic bronchitis COPD type B Impaired fasting glucose Intrinsic asthma Mixed hyperlipidemia Historical Chemistry Research Assistant (more content not included)... Normal [facility] Comment on above: Result Comment: Elec tronically [...] these instructions at home: Medicines ? Take ojsa-cnu-pzhaphg and prescription medicines only as told by [...] cannot use soap and water, use hand whanau support worker. This may help keep you from getting [...] provider. Document Revised: 07/06/2021 Document Reviewed: 06/21/2021 [employer] Patient Education ? 2022 [employer]. [facility] Physician Referralon 023 Physician Referral [id number] 6#1.00CD:127 Normal [facility] Family Medicine Office/Clini c Noteon 05-04-2023 Family [...] with voice recognition artificial intelligence software, specifically [employer] and or [employer]. Substitutions may have occurred due to the [...] no complaints of ear pain or pressure. [place] allergies. Review of Systems PHQ Score Initial [...] day(s), # 6 tab(s), Refills(s) 0, Pharmacy: [facility], 167, cm, 05/04/23 12:04:00 EDT, Height/Length Dosing, 133.5, kg, 05/04/23 12:04:00 EDT, Weight Dosing predniSONE, 50 mg = 1 tab(s), Oral, Daily, X 5 day(s), # 5 tab(s), Refills(s) 0, Pharmacy: [facility], 167, cm, 05/04/23 12:04:00 EDT, Height/Length Dosing, 133.5, kg, 05/04/23 12:04:00 EDT, Weight Dosing Follow-up With When Contact Information Yaniv MARRUFO DO, [facility] [address] [place] [address]- Additional Instructions: Patient Education Acute Bronchitis, Adult How to Use a Nebulizer, Adult How to Use a Metered Dose Inhaler Cough, Adult, Glgu-yt-Tzfq BMI for Adults Problem List/Past Medical History [...] azithromycin 250 mg Tab 5-day Dose Pack (Z-Ausytn), 1 packet(s), Oral, As Directed predniSONE 50 [...] Use:. Cigarettes, (more content not included)... Normal [facility] Comment on above: Result Comment: Elec tronically [...] these instructions at home: Medicines ? Take ophr-fxu-kcutyxa and prescription medicines only as told by [...] things can cause a cough. ? Take scpi-itf-umwlpqe and prescription medicines only as told by [...] provider. Document Revised: 10/01/2020 Document Reviewed: 09/01/2019 [employer] Patient Education ? 2022 [employer] Nutrition BMI for Adults What is [...] numbers. This can be done either in [place]ese ([place] or metric measurements. Note that charts and online BMI calculators are available to help you find your BMI quickly and easily without having to do these calculations yourself. To calculate your BMI in [place]ese ([place] measurements: 1. Measure your weight in pounds (lb). 2. Multiply the number of pounds by 703. ? For example, for a person who weighs 180 lb, multiply that number by 703, which equals 126,540. 3. Measure your height in inches. Then multiply that number by itself to get a measurement called in (more content not included)... [facility] Vital Signs Date Time Vital Sign Value Performing Clinician Facility 08-16-2023 08:32-0500 Diastolic blood pressure 84 mm[Hg] MIKALA WINTER [facility] 08-16-2023 08:32-0500 Mean blood pressure 102 mm[Hg] MIKALA WINTER [facility] 08-16-2023 08:32-0500 Systolic blood pressure 138 mm[Hg] MIKALA WINTER [facility] 08-16-2023 08:03-0500 Blood Pressure Location MIKALA WINTER [facility] 08-16-2023 08:03-0500 Diastolic blood pressure 82 mm[Hg] MIKALA WINTER [facility] 08-16-2023 08:03-0500 Heart rate 97 /min MIKALA WINTER [facility] 08-16-2023 08:03-0500 SaO2% (BldA) [Mass fraction] 92 % MIKALA WINTER [facility] 08-16-2023 08:03-0500 Systolic blood pressure 146 mm[Hg] MIKALA WINTER [facility] 07-16-2023 12:35-0500 Blood Pressure Location Charan Mcknightpsey [facility] 07-16-2023 12:35-0500 Body temperature 97.88 [degF] Charan Mcknightpsey [facility] 07-16-2023 12:35-0500 Diastolic blood pressure 86 mm[Hg] Charan Miguel [facility] 07-16-2023 12:35-0500 Heart rate 86 /min Charan Miguel [facility] 07-16-2023 12:35-0500 SaO2% (BldA) [Mass fraction] 95 % Charan Rivera [facility] 07-16-2023 12:35-0500 Systolic blood pressure 136 mm[Hg] Charan Rivera [facility] 06-27-2023 10:00-0400 Diastolic blood pressure 88 mm[Hg] Rosalba Marie [facility] 06-27-2023 10:00-0400 Mean blood pressure 109 mm[Hg] Rosalba Sterling [facility] 06-27-2023 10:00-0400 Systolic blood pressure 150 mm[Hg] Rosalba Fletcherm [facility] 06-27-2023 09:36-0400 Blood Pressure Location Basjcarlos Sterling [facility] 06-27-2023 09:36-0400 Diastolic blood pressure 87 mm[Hg] Bashar Sterling [facility] 06-27-2023 09:36-0400 Heart rate 104 /min Basjcarlos Sterling [facility] 06-27-2023 09:36-0400 SaO2% (BldA) [Mass fraction] 92 % Basjcarlos Sterling [facility] 06-27-2023 09:36-0400 Systolic blood pressure 158 mm[Hg] Bashar Sterling [facility] 06-21-2023 11:50-0400 Diastolic blood pressure 92 mm[Hg] MIKALA MAGGY [facility] 06-21-2023 11:50-0400 Mean blood pressure 109 mm[Hg] MIKALA MAGGY [facility] 06-21-2023 11:50-0400 Systolic blood pressure 144 mm[Hg] MIKALA MAGGY [facility] 06-21-2023 11:23-0400 Blood Pressure Location MIKALA MAGGY [facility] 06-21-2023 11:23-0400 Body temperature 97.34 [degF] MIKALA MAGGY [facility] 06-21-2023 11:23-0400 Diastolic blood pressure 100 mm[Hg] MIKALA MAGGY [facility] 06-21-2023 11:23-0400 Heart rate 96 /min MIKALA MAGGY [facility] 06-21-2023 11:23-0400 Respiratory rate 24 /min MIKALA MAGGY [facility] 06-21-2023 11:23-0400 SaO2% (BldA) [Mass fraction] 93 % MIKALA MAGGY [facility] 06-21-2023 11:23-0400 Systolic blood pressure 172 mm[Hg] MIKALA MAGGY [facility] 05-18-2023 10:45-0400 Diastolic blood pressure 88 mm[Hg] Bashar Sterling [facility] 05-18-2023 10:45-0400 Mean blood pressure 110 mm[Hg] Bashar Sterling [facility] 05-18-2023 10:45-0400 Systolic blood pressure 154 mm[Hg] Bashar Sterling [facility] 05-18-2023 10:26-0400 Blood Pressure Location Bashar Sterling [facility] 05-18-2023 10:26-0400 Diastolic blood pressure 78 mm[Hg] Bashar Sterling [facility] 05-18-2023 10:26-0400 Heart rate 78 /min Bashar Sterling [facility] 05-18-2023 10:26-0400 SaO2% (BldA) [Mass fraction] 98 % Bashar Sterling [facility] 05-18-2023 10:26-0400 Systolic blood pressure 176 mm[Hg] Bashar Sterling [facility] 05-16-2023 08:55-0400 Diastolic blood pressure 80 mm[Hg] MIKALA MAGGY [facility] 05-16-2023 08:55-0400 Mean blood pressure 99 mm[Hg] MIKALA MAGGY [facility] 05-16-2023 08:55-0400 Systolic blood pressure 138 mm[Hg] MIKALA MAGGY [facility] 05-16-2023 08:40-0400 Blood Pressure Location MIKALA MAGGY [facility] 05-16-2023 08:40-0400 Diastolic blood pressure 80 mm[Hg] MIKALA MAGGY [facility] 05-16-2023 08:40-0400 Heart rate 79 /min MIKALA MAGGY [facility] 05-16-2023 08:40-0400 SaO2% (BldA) [Mass fraction] 95 % MIKALA MAGGY [facility] 05-16-2023 08:40-0400 Systolic blood pressure 142 mm[Hg] MIKALA MAGGY [facility] 05-09-2023 13:10-0400 SaO2% (BldA) [Mass fraction] 91 % MIKALA MAGGY [facility] 05-09-2023 08:59-0400 Blood Pressure Location MIKALA MAGGY [facility] 05-09-2023 08:59-0400 Diastolic blood pressure 80 mm[Hg] MIKALA MAGGY [facility] 05-09-2023 08:59-0400 Heart rate 96 /min MIKALA MAGGY [facility] 05-09-2023 08:59-0400 SaO2% (BldA) [Mass fraction] 91 % MIKALA MAGGY [facility] 05-09-2023 08:59-0400 Systolic blood pressure 138 mm[Hg] MIKALA WINTER [facility] 05-04-2023 12:01-0400 Blood Pressure Location Gonsalo Spasic [facility] 05-04-2023 12:01-0400 Body temperature 97.52 [degF] Gonsalo Spasic [facility] 05-04-2023 12:01-0400 Diastolic blood pressure 80 mm[Hg] Gonsalo Spasic [facility] 05-04-2023 12:01-0400 Heart rate 92 /min Gonsalo Spasic [facility] 05-04-2023 12:01-0400 SaO2% (BldA) [Mass fraction] 82 % Gonsalo Spasic [facility] 05-04-2023 12:01-0400 Systolic blood pressure 134 mm[Hg] Gonsalo Spasic [facility] 07-11-2022 08:02-0500 Blood Pressure Location Yaniv MARRUFO [facility] 07-11-2022 08:02-0500 Body temperature 97.34 [degF] Yaniv MARRUFO [facility] 07-11-2022 08:02-0500 Diastolic blood pressure 78 mm[Hg] Yaniv MARRUFO [facility] 07-11-2022 08:02-0500 Heart rate 82 /min Yaniv MARRUFO [facility] 07-11-2022 08:02-0500 SaO2% (BldA) [Mass fraction] 92 % Yaniv MARRUFO [facility] 07-11-2022 08:02-0500 Systolic blood pressure 132 mm[Hg] Yaniv MARRUFO [facility] Encounters Encounter Date Encounter Type Care Provider Facility Start: 08-16-2023 End: 08-17-2023 ambulatory MIKALA A MAGGY Facility:[facility] Start: 08-16-2023 End: 08-16-2023 Patient encounter procedure MIKALA A MAGGY [facility] Start: 07-24-2023 End: 07-25-2023 ambulatory Steve Dickinson Facility:[facility] Start: 07-16-2023 ambulatory MIKALA MAGGY Facility :[facility] Start: 07-16-2023 End: 07-17-2023 ambulatory Charan Rivera Facility:[facility] Start: 07-16-2023 End: 07-16-2023 Patient encounter procedure Charan Rivera [facility] Start: 07-04-2023 ambulatory MIKALA A MAGGY Facili ty:[facility] Start: 06-27-2023 End: 06-28-2023 ambulatory XXXX NONE Facility:[facility] Start: 06-27-2023 End: 06-27-2023 Patient encounter procedure Bashar X Sterling [facility] Start: 06-21-2023 End: 06-22-2023 ambulatory MIKALA A MAGGY Facility:[facility] Start: 06-21-2023 End: 06-21-2023 Patient encounter procedure MIKALA A MAGGY [facility] Start: 06-04-2023 End: 06-05-2023 ambulatory Bashar X Sterling Facility:[facility] Start: 05-30-2023 End: 05-31-2023 ambulatory Bashar X Sterling Facility:[facility] Start: 05-30-2023 End: 05-30-2023 Patient encounter procedure Tia Alfaro [facility] Start: 05-30-2023 End: 05-31-2023 ambulatory Bashar X Sterling Facility:[facility] Start: 05-30-2023 End: 05-30-2023 Patient encounter procedure Bashar X Sterling [facility] Start: 05-18-2023 End: 05-19-2023 ambulatory Bashar X Sterling Facility:[facility] Start: 05-18-2023 End: 05-18-2023 Patient encounter procedure Bashar X Sterling [facility] Start: 05-16-2023 End: 05-17-2023 ambulatory MIKALA A MAGGY Facility:[facility] Start: 05-16-2023 End: 05-16-2023 Patient encounter procedure MIKALA A MAGGY [facility] Start: 05-10-2023 End: 05-11-2023 ambulatory MIKALA A MAGGY Facility:[facility] Start: 05-09-2023 End: 05-10-2023 ambulatory MIKALA A MAGGY Facility:[facility] Start: 05-09-2023 End: 05-09-2023 Patient encounter procedure MIKALA A MAGGY [facility] Start: 05-04-2023 End: 05-05-2023 ambulatory Gonsalo V. Spasic [facility] Start: 05-04-2023 End: 05-04-2023 Patient encounter procedure Gonsalo V. Spasic [facility] Start: 07-11-2022 End: 07-11-2022 Patient encounter procedure Yaniv MARRUFO [facility] Procedures Date Procedure Procedure Detail Performing Clinician [...] influenza, injectable, quadrivalent, preservative free MIKALA WINTER [facility] 07-11-2021 COVID-19, mRNA, LNP-S, PF, 30 mcg/0.3 mL dose Yaniv MARRUFO [facility] 12-10-2020 COVID-19, mRNA, LNP-S, PF, 30 mcg/0.3 mL dose Yaniv MARRUFO [facility] Comment on above: Reason for Medicatio n: Prophylaxis 11-12-2020 COVID-19, mRNA, LNP-S, PF, 30 mcg/0.3 mL dose Yaniv MARRUFO [facility] Comment on above: Reason for Medicatio n: Prophylaxis NEGATED: Highlighted row has not occurred!07-16-2023 influenza virus vaccine, unspecified formulation Charan Mcknightpsey [facility] NEGATED: Highlighted row has not occurred!07-16-2023 SARS-CoV-2 mRNA (tozinameran 5y-11y) vaccine Charan Mcknightpsey [facility] NEGATED: Highlighted row has not occurred!05-04-2023 influenza virus vaccine, unspecified formulation Gonsalo Spacjc [facility] NEGATED: Highlighted row has not occurred!07-11-2022 influenza virus vaccine, unspecified formulation Yaniv MARRUFO [facility] [place] Payers Date Payer Category Payer Unknown [id number] 1960 Unknown [id number] 2.16.8 [id number] 1960 Unknown [id number] 2.16.8 [id number] 1961 Unknown [id number] 2.16.8 [id number] 1961 Unknown [id number] 2.16.8 [id number] 1961 Unknown [id number] 2.16.8 [id number] 1961 Unknown [id number] 2.16.8 [id number] 1961 Unknown [id number] 2.16.8 [id number] 1961 Unknown [id number] 2.16.8 [id number] 1961 Unknown [id number] 2.16.8 [id number] 1961 Unknown [id number] 2.16.8 [id number] 1961 Unknown [id number] 2.16.8 [id number] 1961 Unknown [id number] 2.16.8 [id number] 1961 Unknown [id number] 2.16.8 [id number] 1960 Unknown [id number] 2.16.8 [id number] Social History Date Type Detail Facility Start: 11-22-2020 End: 08-16-2023 Tobacco smoking status Ex-smoker (finding) [facility] Tobacco smoking status Never Wilfredo [facility] Sex Assigned At Female [facility] Functional Status Date Assessment Result Facility 08-16-2023 Functional Status N/A [facility] 07-16-2023 Functional Status N/A [facility] 06-27-2023 Functional Status No [facility] 06-21-2023 Functional Status N/A [facility] 05-18-2023 Functional Status No [facility] 05-16-2023 Functional Status N/A [facility] 05-09-2023 Functional Status N/A [facility] 05-04-2023 Functional Status N/A [facility] 07-11-2022 Functional Status N/A [facility] Clinical Notes 07-11-2021 to 12-21-2023 LaboratoryLaboratoryLaboratoryLaboratoryLaboratoryLaboratoryLaboratory Note Date & Type Note Facility 08-16-2023 Hospital Discharge instructions Patient Education 08/16/2023 12:34:09 Chronic Obstructive Pulmonary Disease, Vhsd-zg-Bzxy Chronic Obstructive Pulmonary Disease Chronic obstructive pulmonary [...] Follow these instructions at home: Medicines Take fyxr-omc-tjyufrs and prescription medicines only as told by [...] keep yourself as healthy as possible. Take fsyl-feu-ghyshfl and prescription medicines only as told by your doctor. If you smoke, stop. Smoking makes the problem worse. This information is not intended to replace advice given to you by your health care provider. Make sure you discuss any questions you have with your health care provider. Document Revised: 06/21/2021 Document Reviewed: 06/21/2021 [employer] Patient Education 2022 [employer]aDx. [facility] 07-16-2023 Hospital Discharge instructions [...] numbers. This can be done either in [place] (U.[place] or metric measurements. Note that charts and online BMI calculators are available to help you find your BMI quickly and easily without having to do these calculations yourself. To calculate your BMI in [place]ese ([place].S[place] measurements: 1.Measure your weight in pounds [...] Centers for Disease Control and Prevention: www.cdc.gov [place] Heart Association: www.heart.org National Heart, Lung, and Blood [place]: www.nhlbi.nih.gov Summary Body mass index (BMI) is a number that is calculated from a person's weight and height. BMI may help estimate how much of a person's weight is composed of fat. BMI can help identify those who may be at higher risk for certain medical problems. BMI can be measured using Sudanese measurements or metric measurements. BMI charts are used to identify whether you are underweight, normal weight, overweight, or obese. This information is not intended to replace advice given to you by your health care provider. Make sure you discuss any questions you have with your health care provider. Document Revised: 05/05/2020 Document Reviewed: 03/12/2020 [employer] Patient Education 2022 [employer]x. 07/16/2023 15:41:24 Cellulitis, Adult, Jubs-aq-Xfic Cellulitis, Adult Cellulitis is a skin infection. [...] Follow these instructions at home: Medicines Take mqta-wff-pqtrhze and prescription medicines only as told by [...] provider. Document Revised: 05/25/2022 Document Reviewed: 05/25/2022 [employer] Patient Education 2022 [employer]. [facility] 07/16/2023 11:30:16 With:MIKALA WINTER CNP, FAM Address: [address] [place], [place] [id number]- When: Unknown [facility] 06-22-2023 Hospital Discharge instructions Patient Education 06/21/2023 22:43:07 Chronic Obstructive Pulmonary Disease Exacerbation, Rjcr-bx-Qvac Chronic Obstructive Pulmonary Disease Exacerbation Chronic obstructive [...] Follow these instructions at home: Medicines Take siob-jqu-iakjifo and prescription medicines only as told by [...] cannot use soap and water, use hand whanau support worker. This may help keep you from getting [...] Document Reviewed: 06/21/2021 [employer] Patient Education 2022 AltheaDx. [facility] 05-16-2023 Hospital Discharge instructions Patient Education 05/16/2023 [...] Follow these instructions at home: Medicines Take mwgi-nqc-sfowlmq and prescription medicines only as told by [...] and water are not available, use hand whanau support worker. Avoid contact with people who have symptoms [...] provider. Document Revised: 12/14/2021 Document Reviewed: 12/14/2021 [employer] Patient Education 2022 [employer]x. Follow Up Care 05/09/2023 09:59:19 With:MIKALA WINTER CNP, FAM Address: [address] [place] [address]- [facility] (1) When:3 months Comments:COPD [facility] 05-09-2023 Hospital Discharge instructions Patient Education 05/09/2023 08:17:08 Chronic Obstructive Pulmonary Disease Exacerbation, Xrzi-cw-Aedk Chronic Obstructive Pulmonary Disease Exacerbation Chronic obstructive [...] Follow these instructions at home: Medicines Take czfj-ftw-musvwgb and prescription medicines only as told by [...] cannot use soap and water, use hand whanau support worker. This may help keep you from getting [...] provider. Document Revised: 07/06/2021 Document Reviewed: 06/21/2021 [employer] Patient Education 2022 [employer]x. [facility] 05-04-2023 Hospital Discharge instructions Patient Education 05/04/2023 [...] condition. Follow these instructions at home: Take tsjw-rvj-iqjyvrk and prescription medicines only as told by [...] and water are not available, use hand whanau support worker. Avoid contact with people who have cold [...] it is easier to cough up. Take oyqt-jmr-jlosmmd and prescription medicines only as told by [...] provider. Document Revised: 12/14/2021 Document Reviewed: 12/14/2021 [employer] Patient Education 2022 [employer]x. 05/04/2023 13:05:59 How to Use a Nebulizer, [...] steps before using your nebulizer: 1.Read the insulation blanket maker's instructions for your nebulizer, as machines vary. [...] bacteria, you can get sick. Follow the insulation blanket maker's instructions for cleaning your nebulizer. For most [...] more information Allergy & Asthma Network: allergyasthmanetwork.org [place] Lung Association: www.lung.org Contact a health care [...] provider. Document Revised: 04/25/2021 Document Reviewed: 09/22/2020 [employer] Patient Education 2022 [employer]x. 05/04/2023 13:05:57 How to Use a Metered [...] Centers for Disease Control and Prevention: www.cdc.gov [place] Lung Association: www.lung.org Contact a health care [...] provider. Document Revised: 09/28/2020 Document Reviewed: 09/28/2020 [employer] Patient Education 2022 [employer]aDx. 05/04/2023 13:05:57 Cough, Adult, Wdrw-bf-Webx Cough, Adult A cough helps to clear [...] Follow these instructions at home: Medicines Take ubak-rvg-awkdyzd and prescription medicines only as told by [...] Many things can cause a cough. Take nckr-hxu-kpiksrd and prescription medicines only as told by [...] provider. Document Revised: 10/01/2020 Document Reviewed: 09/01/2019 [employer] Patient Education 2022 [employer]aDx. 05/04/2023 13:05:55 BMI for Adults BMI for [...] numbers. This can be done either in [place]ese (U.S[place] or metric measurements. Note that charts and online BMI calculators are available to help you find your BMI quickly and easily without having to do these calculations yourself. To calculate your BMI in [place]ese ([place].S.) measurements: 1.Measure your weight in pounds [...] Centers for Disease Control and Prevention: www.cdc.gov [place] Heart Association: www.heart.org National Heart, Lung, and Blood [place]: www.nhlbi.nih.gov Summary Body mass index (BMI) is a number that is calculated from a person's weight and height. BMI may help estimate how much of a person's weight is composed of fat. BMI can help identify those who may be at higher risk for certain medical problems. BMI can be measured using Sudanese measurements or metric measurements. BMI charts are used to identify whether you are underweight, normal weight, overweight, or obese. This information is not intended to replace advice given to you by your health care provider. Make sure you discuss any questions you have with your health care provider. Document Revised: 05/05/2020 Document Reviewed: 03/12/2020 [employer] Patient Education 2022 [employer] Follow Up Care 05/04/2023 11:37:55 With:Yaniv MARRUFO DO, MAXIMO Address: [address] [place] [address]- When: Unknown [facility] 07-11-2021 Hospital Discharge instructions Follow Up Care 07/11/2021 08:28:25 With:Yaniv MARRUFO DO, FAM Address: [address] [place] [id number]- When:Within 1 Year(s) With:Ynaiv MARRUFO DO, FAM Address: [address] [place] [id number]- When:Within 1 Year(s) [facility] Evaluation + Plan note Future Appointments Appointment Date:07/11/2023 08:00:00 AM Scheduled Provider:Yaniv MARRUFO DO Location:[facility] Appointment Type: Open Future Scheduled [id number] 07/11/22CBC w/ Auto Diff 07/11/22Comprehensive Metabolic Panel 07/11/22Lipid Panel 07/11/22 [facility] Evaluation + Plan note Future Appointments Appointment Date:05/16/2023 08:20:00 AM Scheduled Provider:MIKALA WINTER CNP Location:[facility] Appointment Type: Open Appointment Date:07/11/2023 08:00:00 AM Scheduled Provider:Yaniv MARRUFO DO Location:[facility] Appointment Type: Open Future Scheduled [id number] 07/11/22CBC w/ Auto Diff 07/11/22Comprehensive Metabolic Panel 07/11/22Lipid Panel 07/11/22 [facility] Evaluation + Plan note Future Appointments Appointment Date:05/18/2023 10:15:00 AM Scheduled Provider:[facility]osalba Marie [facility] Type:Pulmonary New Patient (FT) Appointment Date:08/16/2023 08:00:00 AM Scheduled Provider:MIKALA WINTER CNP Location:[facility] Appointment Type:FM Open Future Scheduled [id number] 07/11/22CBC w/ Auto Diff 07/11/22Comprehensive Metabolic Panel 07/11/22Lipid Panel 07/11/22 [facility] [place] Evaluation + Plan note Future Appointments Appointment Date:05/30/2023 10:30:00 AM Scheduled Provider: [facility] Type:PUL Pulmonary Function Test (FT) Appointment Date:08/16/2023 08:00:00 AM Scheduled Provider:MIKALA WINTER CNP Location:[facility] Appointment Type: Open Future Scheduled [id number] 07/11/22CBC w/ Auto Diff 07/11/22Comprehensive Metabolic Panel 07/11/22Lipid Panel 07/11/22 [facility] Evaluation + Plan note Future Appointments Appointment Date:06/04/2023 07:30:00 AM Scheduled Provider: [facility] Type:PUL Pulmonary Function Test (FT) Appointment Date:06/04/2023 08:30:00 AM Scheduled Provider: [facility] Appoint[facility] Type:PUL O2 Desat Study (FT) Appointment Date:08/16/2023 08:00:00 AM Scheduled Provider:MIKALA WINTER CNP Location:[facility] Appointment Type: Open Future Scheduled [id number] 07/11/22CBC w/ Auto Diff 07/11/22Comprehensive Metabolic Panel 07/11/22Lipid Panel 07/11/22 [facility] Evaluation + Plan note Future Appointments Appointment Date:06/27/2023 09:30:00 AM Scheduled Provider:Rosalba Marie MD Location[facility] Appointment Type:Pulmonary Follow Up (FT) Appointment Date:07/04/2023 08:00:00 AM Scheduled Provider:MIKALA WINTER CNP Location:[facility] Appointment Type:FM Open Appointment Date:08/16/2023 08:00:00 AM Scheduled Provider:MIKALA WINTER CNP Location:[facility] Appointment Type: Open Future Scheduled [id number] 07/11/22CBC w/ Auto Diff 07/11/22Comprehensive Metabolic Panel 07/11/22Lipid Panel 07/11/22 [facility] Evaluation + Plan note Future Appointments Appointment Date:07/04/2023 08:00:00 AM Scheduled Provider:MIKALA WINTER CNP Location:[facility] Appointment Type:FM Open Appointment Date:08/16/2023 08:00:00 AM Scheduled Provider:MIKALA WINTER CNP Location:[facility] Appointment Type:FM Open Appointment Date:09/10/2023 10:15:00 AM Scheduled Provider:Rosalba Marie MD Location:[facility] Appointment Type:Pulmonary Follow Up (FT) Future Scheduled [id number] 07/11/22CBC w/ Auto Diff 07/11/22Comprehensive Metabolic Panel 07/11/22Lipid Panel 07/11/22 [facility] Evaluation + Plan note Future Appointments Appointment Date:08/16/2023 08:00:00 AM Scheduled Provider:MIKALA WINTER CNP Location:[facility] Appointment Type:FM Open Appointment Date:09/10/2023 10:15:00 AM Scheduled Provider:Rosalba Marie MD Location:[facility] Appointment Type:Pulmonary Follow Up (FT) [facility] Care Evaluation + Plan note Future Appointments Appointment Date:09/10/2023 10:15:00 AM Scheduled Provider:Rosalba Marie MD Location:[facility] Appointment Type:Pulmonary Follow Up (FT) [facility] Hospital course Narrative No data available for this section [facility] Hospital Discharge instructions No data available for this section [facility] Progress note No data available for this section [facility] Summary Purpose Family History No Family History Records Found Advance Directives No Advanced Directives Records Found Additional Source Comments Patient Care team informatio n (unrecognized section and content) Personnel Name: Yaniv MARRUFO DO Address: Address: [address] [place] [address] [address] [place] [address] Name: Lashaun ALVAREZN, Danae Personnel Name: NIRU QUEEN Yaniv Potter Address: Address: [address] [place] [address] [place] [address]- [place] Name: Erickdaradha OVALLE, Danae Personnel Name: MIKALA WINTER CNP A Address: Address: [address] [place] [phone]- [place] Name: Lashaun OVALLE, Danae Personnel Name: MIKALA WINTER CNP A Address: Address: [address] [address]- [place] Name: Erickdarin YAMILE Danae Personnel Name: MIKALA WINTER CNP A Address: Address: [address] [address]- [place] Name: Erickdarin YAMILE, Danae Personnel Name: MIKALA WINTER CNP A Address: Address: [address] [place] [id number]- [place] Name: Erickdarin YAMILE Danae Personnel Name: MIKALA WINTER CNP A Address: Address: [address] [place] [phone]- [place] Name: Erickdarin YAMILE Danae Personnel Name: MIKALA WINTER CNP A Address: Address: [address] [place] [address]- [place] Name: Erickdarin YAMILE, Danae Personnel Name: MIKALA WINTER CNP A Address: Address: [address] [place] [id number]- [place] Name: Erickdarin YAMILE Danae Personnel Name: MIKALA WINTER CNP A Address: Address: [address] [place] [phone]- [place] Name: Lashaun OVALLE Danae Personnel Name: MIKALA WINTER CNP A Address: Address: [address] [place] [phone]- [place] Name: Erickdarin YAMILE Danae INFORMATION SOURCE (unrecogn ized section and content) DATE CREATED AUTHOR 08/29/2023 [facility] FOR RECORDS PERTAINING TO PATIENTS WHO ARE [...] BE BASED ON THE PRIMARY CLINICAL RECORDS. [facility] [employer] [facility]. provides no warranty or guarantee of the accuracy or completeness of information in this document.
== END 2023-09-28 08:24 | disposition home or self-care (01) ==
LOC: VC 08:23
PROVIDERS: PCP Radiology Diagnostic Radiology; Visit Provider Radiology Diagnostic Radiology
DX: I80.01 Phlebitis and thrombophlebitis of superficial vessels of right lower extremity (principal)
CPT/HCPCS: 93971; G0463